=== PATIENT | female | born 1950 | race Caucasian/White ===

== ENCOUNTER → 2024-01-09 13:53 | Outpatient (REF) | payer OTHER, SELFPAY | LOC: HWRCS 13:53 | PROVIDERS: ATTENDING PHYSICIAN Nurse Practitioner; FAMILY PHYSICIAN Family Medicine | DX: R06.09 Other forms of dyspnea (principal) | CPT/HCPCS: 93306 ==

== ENCOUNTER → 2024-02-25 07:47 | Outpatient (REF) | payer OTHER, SELFPAY | LOC: PET 07:47 | PROVIDERS: ATTENDING PHYSICIAN Internal Medicine Cardiovascular Disease | DX: R07.9 Chest pain, unspecified (principal) | CPT/HCPCS: 78431; A9555; J2785 ==

== ENCOUNTER 2024-03-02 16:06 | Inpatient (IN) | payer OTHER, SELFPAY ==
[2024-03-02] VITALS (19 sets, daily range): BP systolic 136–182; BP diastolic 62–85
[2024-03-02 10:25] LABS: % Basophils 0.5 % (0-2); % Eosinophils 1.6 % (0-6); % Immature Granulocytes 0.3 % (0-0.5); % Lymphocytes 23.3 % (20.5-51.1); % Neutrophils 65.3 % (42.2-75.2); Absolute Eosinophils 0.1 10^3/uL (0-0.7); Absolute Lymphocytes 1.5 10^3/uL (1.2-3.4); Absolute Monocytes 0.6 10^3/uL (0.1-0.6); Absolute Neutrophils 4.2 10^3/uL (1.4-6.5); Hemoglobin 11.5 g/dL (12.0-16.0); Mean Corp Hgb Conc. 33.8 g/dL (33.0-37.0); Mean Corpuscular Hgb 30.4 pg (27.0-31.0); Mean Corpuscular Volume 89.9 fL (81.0-99.0); Mean Platelet Volume 10.7 fL (7.4-10.4); Nucleated Red Blood Cells % 0 %; Platelet Count 243 10^3/uL (130-400); Red Blood Cell Count 3.78 10^6/uL (4.20-5.40); Red Cell Dist. Width 13.6 % (11.5-14.5); White Blood Cell Count 6.4 10^3/uL (4.8-10.8)
[2024-03-02 10:35] LABS: ALT (SGPT) 21 U/L (0-35); AST (SGOT) 24 U/L (14-36); Albumin 4.4 g/dl (3.5-5.0); Alkaline Phosphatase 72 U/L (38-126); Blood Urea Nitrogen 23 mg/dl (7-17); Calcium 9.6 mg/dl (8.4-10.2); Carbon Dioxide 26 mmol/L (22-30); Chloride 107 mmol/L (98-107); Glucose 94 mg/dl (70-99); Potassium 4.7 mmol/L (3.5-5.1); Sodium 140 mmol/L (135-145); Total Bilirubin 0.3 mg/dl (0.2-1.3); Total Protein 7.3 g/dl (6.3-8.2); eGFR > 60.00
[2024-03-02] MEDS: ASPIRIN 325 MG PO (10:37)
[2024-03-02] MEDS: NITROSTAT (SUBLINGUAL) 0.400000000000000022 MG SL ×2 (10:37→19:01)
[2024-03-02 10:47] LABS: NT-proBNP 387 pg/ml; Troponin I < 0.012 ng/ml
--- NOTE | 2024-03-02 10:49 | ED.GENMED ---
History of Present Illness
General
Chief Complaint: Chest Pain
Source: patient and spouse
Exam Limitations: none
Time Seen by Provider: 03/02/24 10:20
Nursing documentation reviewed up to this point in time: agreed with
History of Present Illness
History of Present Illness:
73-year-old female patient of Dr. Holliday status post bypass surgery 17 years ago 6 or 8 weeks ago developed some chest pain pressure across her chest, mild, last evening worsened requiring nitroglycerin which did help her symptoms still with some
mild symptoms now has had leg edema and weight gain, shortness of breath, scheduled for cardiac catheter a few weeks with Dr. Hodge no fever or chills,
Past History
Past History
ED Past Medical History: CAD, Cancer (Breast cancer), HTN, Hypercholesterolemia and ND
ED Past Surgical History: Cardiac (CABG), Cholecystectomy, Orthopedic (Ankle) and Other (Left breast lumpectomy)
Social History
Tobacco: Former smoker
Alcohol: None
Personal:
Living: with family
Employment: Retired
Family History
Family History: CAD and Other
Review of Systems
Review of Systems
All Other Systems: Not applicable
Constitutional: Reports weight gain and fatigue; Denies fever or chills
EENT: Reports no symptoms
Respiratory: Reports trouble breathing
Cardiac: Reports chest pain; Denies diaphoresis, palpitations or syncope
ABD/GI: Reports vomiting
: Reports no symptoms
Musculoskeletal: Reports no symptoms
Phy Exam
Physical Exam
Physical Exam:
Physical Exam
General: 73-year-old female mild distress
Neck: No jaundice
Heart: s1/s2 regular rate and rhythm, no murmur. equal radial pulses.
Lungs: Bibasilar crackles
Abdomen: normal bowel sounds. not tender. no CVAT
Neuro: alert and oriented. no focal neurological deficits
Skin: no rash
Psychiatric: cooperative
Extremities: Edema bilaterally
Scores
Heart Score for Chest Pain Patients
STEMI patient?: No
History: Moderately Suspicious
ECG: Nonspecific Repolarization
Age: >/= 65 years
Risk Factors: >/= 3 Risk Factors or History of CAD
Troponin: </= Normal Limit
Heart Score for Chest Pain Patients: 6
Heart Score Risk: 20.3% MACE over next 6 weeks
Course
Orders/Labs/Results
Orders:
Orders
03/02/24 09:38
ECG [Electrocardiogram (*1)] Urgent
Reason for Study: Chest Pain
EKG- Treatment ONCE
03/02/24 10:11
Complete Blood Count/With Diff Urgent
Comprehensive Metabolic Panel Urgent
NT-proBNP Urgent
Troponin I Urgent
03/02/24 10:33
Aspirin 325 mg PO NOW STA
Nitroglycerin Sublingual [Nitrostat (Sublingual)] 0.4 mg SL [id number] PRN
CR Chest Portable - 1 View Urgent
Comment:
Reason For Exam: sob
Reason Study Needs to be Portable: Patient Unstable
Abnormal Lab Results
03/02/24
10:11
RBC 3.78 L 10^6/uL
(4.20-5.40)
Hgb 11.5 L g/dL
(12.0-16.0)
Hct 34.0 L %
(37.0-47.0)
MPV 10.7 H fL
(7.4-10.4)
BUN 23 H mg/dl
(7-17)
03/02/24 10:11
03/02/24 10:11
Vital Signs
Initial and Last Documented VS:
Initial Vital Signs
Temp Pulse Resp BP Pulse Ox
98.9 F 71 18 182/82 96
03/02/24 09:47 03/02/24 09:47 03/02/24 09:47 03/02/24 09:47 03/02/24 09:47
Last Documented Vital Signs
Temp Pulse Resp BP Pulse Ox
98.9 F 64 18 163/85 96
03/02/24 09:47 03/02/24 10:45 03/02/24 10:45 03/02/24 10:04 03/02/24 09:47
MDM/Problems Addressed
Differential Diagnosis Includes:
ACS heart failure unstable angina noncardiac chest pain
MDM/Problems Addressed:
Chest pain shortness of breath
Chronic conditions affecting care: HTN and CAD
Acute Exacerbation and/or Progression of Chronic Illness: HTN and CAD
*Radiology
Radiology exam reviewed: preliminary read by ED provider
*Pulse Oximetry
Patient hypoxic: no
*EKG
Interpreted by ED Provider?: Yes
Interpretation: abnormal
Comparison EKG: no changes
Heart Rate: 80
Rate: normal
Rhythm: sinus
Ischemia: non-specific ST changes
*Computerized Table Cutter Interpretation
Rate: normal
Interpretation: normal
Heart Rate: 78
Rhythm: sinus
*Critical Care Note
Total Time (30-74mins, 75-104mins- exclusive of procedures): Not Applicable
Update Note
Update Note:
Update patient with persistent symptoms, mild here improved with sublingual nitro labs noted chest x-ray noted consult request from cardiology patient and spouse updated
1:45 PM reviewed with cardiology will be admitted
ED Attending Note
-
Portions of this chart may have been created with voice recognition software.� Occasional wrong word or��sound alike� substitutions may have occurred due to the inherent limitations of voice recognition software.
Discharge Plan
Departure
Patient Disposition: Admit
Date of Disposition: 03/02/24
Time of Disposition: 13:46
Admit to: labor operator
Presentation/result/management discussed w/ accepting MD/DO: DCA
Condition: Good
Discharge Problem:
ACS (acute coronary syndrome)
Prescriptions:
No Action
primidone 50 mg Tablet
150 mg PO DAILY
primidone 50 mg Tablet
200 mg PO HS
metoprolol succinate 50 mg Tablet Extended Release 24 Hr
50 mg PO DAILY
isosorbide mononitrate 30 mg Tablet Extended Release 24 Hr
30 mg PO DAILY
clopidogrel 75 mg Tablet
75 mg PO DAILY
aspirin 81 mg Tablet,Delayed Release (Dr/Ec)
81 mg PO HS
acetaminophen [Tylenol Extra Strength] 500 mg Tablet
1,000 mg PO BIDPRN PRN (Reason: mild pain)
levothyroxine 88 mcg Tablet
88 mcg PO HS
cyanocobalamin (vitamin B-12) 500 mcg Tablet
500 mcg PO HS
ascorbic acid (vitamin C) [Vitamin C] 500 mg Tablet
500 mg PO HS
nitroglycerin 0.4 mg Tablet, Sublingual
0.4 mg SUBLINGUAL [id number] PRN (Reason: chest pain)
zinc 50 mg Tablet
50 mg PO HS
lisinopril 5 mg Tablet
5 mg PO DAILY
furosemide 20 mg Tablet
20 mg PO DAILY
fenofibrate 160 mg tablet
160 mg PO DAILY
Repatha SureClick 140 mg/mL Pen Injector
140 mg SC Q2W
cholecalciferol (vitamin D3)
1 tab PO HS
Patient Comments:
03/02/2024, pt. unsure of strength.
rosuvastatin 20 mg Tablet
20 mg PO HS
Referrals:
Annamaria Bourne MD [Family Provider] -
Interventions
Interventions:
*Risk Screen - Suicide Last Done: 03/02/24 09:47
*General Assessment Last Done: 03/02/24 09:47
*Neglect/Abuse Screening Last Done: 03/02/24 09:47
ED- Cardiac Assessment Last Done: 03/02/24 10:26
Discharge Date and Time
Print Language: IRISH
--- NOTE | 2024-03-02 12:46 | CON.CAR ---
Addendum entered and electronically signed by Hemant Hodge MD 03/02/24 16:51:
Attending addendum: Patient seen and examined. PA note reviewed and findings independently confirmed by me. Briefly, this is a 73-year-old female with a remote history of coronary artery bypass grafting at [facility] in 2006 with a
sequential vein [id number] 1 daughter branch-OM 2 and REYES-LAD. She has known extensive coronary artery disease with occlusion of the apical LAD beyond the TONI touchdown and 80% stenosis in the distal RCA with occlusion of the mid PDA and
occlusion of the [place] circumflex. She was seen by Dr. Holliday for evaluation of crescendo anginal symptoms with recent development of chest pain at very low levels of exertion or at rest. She was scheduled for coronary angiography but
developed resting chest pain leading to an emergency department visit this afternoon.
RECOMMENDATION
-Unstable angina with remote bypass surgery: Will proceed with left heart catheterization and evaluation of [place] and graft anatomy with further management decisions to be made after the angiogram is completed
Original Note:
Consultation
Consultation Request
Date/Time Consultation Requested: 03/02/24
Date/Time Consultation Performed: 03/02/24
Requesting Provider: Dr. Crowell in the ER
Performing Provider: Dr. Hodge
Reason for Consultation: Chest pain, CAD s/p CABG
Medical History
-
History of Present Illness:
Patient came to ER today with complaints of chest pain at rest and is being admitted with suspected unstable angina. Patient was just seen by Dr. Holliday in the office 01/31/2024 with complaints of chest pain while on vacation. Patient was on a
cruise and reports that on long walks she had pain in the center of her chest. Pain would be relieved with rest, but reliably recur with longer walks. She says that after that she saw Dr. Holliday in the office and had the PET stress test as noted
that was abnormal, but even prior to PET stress she started to have chest pain with lower levels of activity and for the last 2 weeks has been having resting chest pain. Patient says that while laying in bed last night she had resting chest pain
that lasted for more than 15 minutes so she took a NTG SL x1 for the first time ever and had relief of pain and then developed WHITNEY so she went to bed. Patient awoke in the middle of the night with recurrence of pain that was less intense so she did
not take any doses of NTG SL. Patient awoke with more chest pain this morning and came to [facility]. Patient was given NTG SL x1 in the ER with resolution of chest pain and again developed a WHITNEY. She now feels a different kind of chest sensation that she
describes as heaviness. Initial Troponin was undetectable. Patient previously had CABG in 2006 at [facility] and then had a cath in 2010 as noted above.
PMH:
CAD
s/p CABG with REYES to LAD, SVG to OM-1 (1st branch), SVG seq to OM-1 (2nd branch) and then OM-2 2006
s/p cath with patent REYES to LAD, SVG to OM-1 (1st branch) patent and then occluded after the side of vein to side of artery anastomosis, SVG seq kris OM-1 (2nd branch) and OM-2 was patent at [facility] 10/06/10
cRBBB
HTN
Hyperlipidemia
h/o breast cancer
Hypothyroidism
Former smoker
Past Medical History
Past Medical History: Other (in HPI)
Past Surgical History: Cardiac (ABG at [facility] 2006), Cholecystectomy and Gynecological ( [facility])
Social History
Tobacco: Former Smoker (quit 2010)
Alcohol: None
Drug: None
Personal:
Living: With Family
Family History
Family History: CAD and Diabetes
Allergies / Home Medications
Allergy/AdvReac Type Severity Reaction Status Date / Time
latex [Latex] Allergy Hives Verified 02/05/23 11:51
metronidazole [From Flagyl] Allergy Rash Verified 03/02/24 09:47
Sulfa (Sulfonamide Allergy Hives Verified 02/05/23 11:51
Antibiotics)
propranolol [From Inderal LA] AdvReac Unknown Verified 03/02/24 09:47
�Medication �Instructions �Recorded �Confirmed �Type
acetaminophen 500 mg tablet 1,000 mg PO BIDPRN PRN mild pain 03/02/24 03/02/24 History
(Tylenol Extra Strength)
ascorbic acid (vitamin C) 500 mg 500 mg PO HS 03/02/24 03/02/24 History
tablet (Vitamin C)
aspirin 81 mg tablet,delayed 81 mg PO HS 03/02/24 03/02/24 History
release
cholecalciferol (vitamin D3) 1 tab PO HS 03/02/24 03/02/24 History
clopidogrel 75 mg tablet 75 mg PO DAILY 03/02/24 03/02/24 History
cyanocobalamin (vitamin B-12) 500 500 mcg PO HS 03/02/24 03/02/24 History
mcg tablet
evolocumab 140 mg/mL subcutaneous 140 mg SC Q2W 03/02/24 03/02/24 History
pen injector (Estela Mack)
fenofibrate 160 mg tablet 160 mg PO DAILY 03/02/24 03/02/24 History
furosemide 20 mg tablet 20 mg PO DAILY 03/02/24 03/02/24 History
isosorbide mononitrate 30 mg 30 mg PO DAILY 03/02/24 03/02/24 History
tablet,extended release 24 hr
levothyroxine 88 mcg tablet 88 mcg PO HS 03/02/24 03/02/24 History
lisinopril 5 mg tablet 5 mg PO DAILY 03/02/24 03/02/24 History
metoprolol succinate 50 mg 50 mg PO DAILY 03/02/24 03/02/24 History
tablet,extended release 24 hr
nitroglycerin 0.4 mg sublingual 0.4 mg sublingual [id number] PRN 03/02/24 03/02/24 History
tablet chest pain
primidone 50 mg tablet 150 mg PO DAILY 03/02/24 03/02/24 History
primidone 50 mg tablet 200 mg PO HS 03/02/24 03/02/24 History
rosuvastatin 20 mg tablet 20 mg PO HS 03/02/24 03/02/24 History
zinc 50 mg tablet 50 mg PO HS 03/02/24 03/02/24 History
Review of Systems
-
History Source: Patient and Family ( sitting bedside helping with HPI)
All other systems: Negative unless noted
Physical Exam
Vital Signs
Temp Pulse Resp BP Pulse Ox
98.9 F 64 18 163/85 96
03/02/24 09:47 03/02/24 10:45 03/02/24 10:45 03/02/24 10:04 03/02/24 09:47
GEN: NAD. AAOx3
HEENT: EOMI, MMM
LUNGS: CTA B/L, no wheezes or rales
CV: Reg, S1/S2, no murmur
ABD: soft, BS+, NT, ND
EXT: Trace left worse than right non-pitting B/L LE edema. No clubbing, cyanosis or lesions B/L
NEURO: Gross non-focal
SKIN: Warm, dry and pink. No rash
Lab Results
03/02/24 10:11
03/02/24 10:11
Troponin I < 0.012 ng/ml 03/02/24 10:11
Xyp-M-Judbmzkvijo Pept 387 pg/ml 03/02/24 10:11
Impression / Plan
-
PCP: Dr. Bourne
Cardiology: Dr. Holliday
Impression:
Chest pain at rest, [place]
Abnormal PET stress test 02/25/24
CAD
s/p CABG with REYES to LAD, SVG to OM-1 (1st branch), SVG seq to OM-1 (2nd branch) and then OM-2 2006
s/p cath with patent REYES to LAD, SVG to OM-1 (1st branch) patent and then occluded after the side of vein to side of artery anastomosis, SVG seq kris OM-1 (2nd branch) and OM-2 was patent at [facility] 10/06/10
cRBBB
HTN
Hyperlipidemia
h/o breast cancer
Hypothyroidism
Former smoker
PET stress test 02/25/24: Perfusion imaging reveals a small mild fixed apical defect consistent with prior infarction, small mild reversible anterolateral defect consistent with ischemia, EF 60% at rest and after administration of stress agent,
ventricle is normal in size
Plan:
-Patient came to ER today with complaints of chest pain at rest and is being admitted with suspected unstable angina. Patient was just seen by Dr. Holliday in the office 01/31/2024 with complaints of chest pain while on vacation. Patient was on
a cruise and reports that on long walks she had pain in the center of her chest. Pain would be relieved with rest, but reliably recur with longer walks. She says that after that she saw Dr. Holliday in the office and had the PET stress test as
noted that was abnormal, but even prior to PET stress she started to have chest pain with lower levels of activity and for the last 2 weeks has been having resting chest pain. Patient says that while laying in bed last night she had resting chest
pain that lasted for more than 15 minutes so she took a NTG SL x1 for the first time ever and had relief of pain and then developed WHITNEY so she went to bed. Patient awoke in the middle of the night with recurrence of pain that was less intense so she
did not take any doses of NTG SL. Patient awoke with more chest pain this morning and came to [facility]. Patient was given NTG SL x1 in the ER with resolution of chest pain and again developed a WHITNEY. She now feels a different kind of chest sensation that
she describes as heaviness. Initial Troponin was undetectable. Patient previously had CABG in 2006 at [facility] and then had a cath in 2010 as noted above.
-Patient has progressed from chest pain with activity prompting stress test to resting chest pain and an abnormal stress test.
-Initial Troponin is undetectable.
-ECG reviewed by me without acute ischemic changes.
-Outpatient dose of Imdur ER was increased to 60 mg daily on 02/28/24, but patient continues with episodes of resting chest pain.
-Discussed options of ongoing medical therapy or cardiac cath and patient would like to proceed with cath.
-She took her usual dose of aspirin last night and Plavix this morning.
-New to [facility] after her 01/31/24 office visit for LDL 91 on 12/03/23.
[2024-03-02 14:35] LABS: Troponin I < 0.012 ng/ml
--- NOTE | 2024-03-02 16:08 | ITS.CL.CATH ---
[employer] - Catheterization
Cardiac Catheterization
Procedure Report:
LEFT HEART CATHETERIZATION AND CORONARY INTERVENTION
Date of Procedure: March 02, 2024
Referring: Dr. Lacy Holliday
PROCEDURES:
1. Left heart catheterization with coronary and single-plane left ventriculography
2. Selective saphenous vein graft and TONI angiography
3. Successful stenting of the ostial SVG-OM1-OM 1 daughter-OM 2 with placement of a 4.0 x 38 mm Xience stent that was implanted at nominal pressures.
INDICATION: This is a 73-year-old female with a prior history of coronary artery disease and remote coronary artery bypass grafting in 2006 with REYES-LAD and sequential SVG-OM1-OM 1 daughter branch-OM 2. She presented to our office for evaluation
of crescendo anginal symptoms. A PET CT scan was obtained notable for a small fixed defect with anterolateral reversible ischemia. She was scheduled to undergo coronary angiography in approximately 2 weeks but developed resting chest pain and
presented for evaluation. Troponin has been undetectable, however, given the nature of her symptoms and planned coronary angiography the decision was made to proceed with cardiac catheterization today
ACCESS: Right common femoral artery, 6 Kosovan sheath
HEMODYNAMICS : (mmHg)
AO (s/d) : 167/70
LV (s/d) : 171/16
LVEDP : 20
CORONARY ANGIOGRAPHY
Dominance: Right
LEFT MAIN: Heavily calcified Short left main
LEFT ANTERIOR DESCENDING: The LAD is heavily calcified with a 70% stenosis at its origin. The LAD becomes 100% occluded just beyond the second septal cut in station operator. The distal LAD is noted to fill via a widely patent TONI graft. There is antegrade
and retrograde filling of the LAD proximal and distal to the TONI touchdown. The LAD is noted to be 100% occluded beyond the TONI touchdown just beyond a small terminal diagonal branch. This was reported on the prior catheterization report from
[facility] from 2010. There is retrograde filling to a moderate size LAD supplying 2 diagonal branches
CIRCUMFLEX: The circumflex is diffusely narrowed and becomes occluded in its midportion
RIGHT CORONARY ARTERY: The right coronary artery is heavily calcified with a 50% proximal narrowing and 80% stenosis just before the crux of the vessel. The PDA is 100% occluded in its midportion. These findings were noted on the prior angiogram
from 2010 at [facility].
GRAFT ANGIOGRAPHY:
1. SVG-OM1-OM 1 daughter branch-OM 2: 70% ostial stenosis with development of chest pain and pressure dampening upon engagement. There is a 60-70% proximal stenosis and degenerative changes noted in the vein graft throughout its course. The vein
graft is anastomosed to 2 daughter branches from OM 1. The more proximal limb of the vein graft fills OM1 retrograde but not antegrade. The sequential portion of the vein graft continues to the second daughter branch of OM1 and then terminates
distally in OM 2. OM 2 is a medium caliber vessel with anterograde and retrograde filling
2. REYES-LAD: The REYES graft to the mid LAD is widely patent. The LAD fills proximal to the TONI touchdown supplying 2 small to medium caliber diagonal branches. The LAD beyond the TONI touchdown becomes occluded distally beyond a terminal diagonal
branch. This was noted on the catheterization from 2010
LEFT VENTRICULOGRAPHY: Left ventriculography was performed in DUQUE projection. Digital single-plane left ventricular ejection fraction is estimated at 55%. The ventricle was under opacified and accurate assessment is somewhat limited
ANGIOPLASTY PROCEDURE DETAIL: Upon review of the diagnostic catheterization films the decision was made to proceed with stenting of the sequential SVG. The patient developed ECG changes, pressure dampening, and chest discomfort immediately upon
engagement of the saphenous vein graft. Intravenous heparin was administered and the ACT was monitored throughout the procedure. The origin of the saphenous vein graft was cannulated with a 6 Kosovan AR-1 guide catheter and a BMW guidewire crossed
the ostial and proximal stenotic segments and was advanced distally. I did not use distal protection due to the ostial nature of the atherosclerotic disease. There was clear concern for distal emboli given the degenerative appearance of the
saphenous vein graft anatomy. The patient developed chest pain with ECG changes upon engagement of the guide catheter. Fortunately, a 4.0 x 38 mm Xience stent was able to cross the ostial and proximal stenoses. The guide catheter was carefully
disengaged from the ostium of the vein graft and the stent was deployed at nominal pressures. I chose not to post dilate the stent due to inability to utilize distal protection and high risk for development of no reflow.
RADIATION SUMMARY: Fluoro Time (min): 13.0, Dose (mGy): 1703, DAP (Gy.cm2) : 148
Closure Device: 6 Kosovan Angio-Seal RFA
CONCLUSION
1. Successful stenting of ostial/proximal SVG-OM1-OM 1 daughter-OM 2 with placement of a 4.0 x 38 mm Xience stent that was implanted at nominal pressures.
2. [place] vessel coronary artery disease as described above. The REYES graft is patent to the mid LAD which fills retrograde. The LAD apically beyond the TONI touchdown is 100% occluded. Significant lower [place] circumflex and RCA atherosclerosis is
also noted as above
3. Preserved LV
RECOMMENDATIONS
1. Continue uninterrupted dual antiplatelet therapy for minimum of 1 year
2. High intensity statin for goal LDL cholesterol of 55 mg/dL or less
Copy to: Dr. Lacy Holliday
--- NOTE | 2024-03-02 18:56 | PTCARENOTE ---
patients came out to desk and stated that patient was having chest pressure, entered room and chest pressure 5 out of 10, nonradiating. EKG obtained and Dr. Hodge was called, took picture of EKG and sent to Dr. Hodge. BP 155/67, HR 65.
patient head was elevated 30 degrees while eating. patient is now sitting up. ordered to give 1 SL NTG. as per Dr. Hodge, patient insisted on getting up to go to BR. no dizziness, right groin intact. voided and had BM. pressure the same in chest,
Dr. Hodge aware.
--- NOTE | 2024-03-02 19:12 | PTCARENOTE ---
chest pressure continues, Dr. Hodge aware will start IV nitroglycerin as ordered.
[2024-03-02] MEDS: NITROGLYCERIN PREMIX 250 IV (19:35)
--- NOTE | 2024-03-02 19:35 | PTCARENOTE ---
Received patient at 1900. Had 5 out 10 chest pain, Dr. Hodge notified, Nitro gtt at 5 mcg/min started. Pain subsiding now rating it a 2 out of 10, looks more relaxed. Loose stools earlier have subsided
--- NOTE | 2024-03-02 20:18 | PTCARENOTE ---
Patient sitting on side of bed, denies chest pressure, 'feels better sitting up'. Dull headache would like to wait on Tylenol for now. Call garcia in reach
[2024-03-02 20:34] LABS: Troponin I 0.133 ng/ml
--- NOTE | 2024-03-02 21:20 | PTCARENOTE ---
Another liquid bowel movement. Denies chest discomfort. Sitting on site of bed, feeling better. Jody spring given, VSS, call garcia in reach
[2024-03-02] MEDS: ASPIR LOW (ENTERIC COATED) 81 MG PO (22:20)
[2024-03-02] MEDS: SYNTHROID 88 MCG PO (22:21)
[2024-03-02] MEDS: CRESTOR 20 MG PO (22:21)
[2024-03-02] MEDS: MYSOLINE 200 MG PO (22:21)
[2024-03-03 02:48] VITALS: BP 115/69
[2024-03-03 03:30] LABS: Hematocrit 32.8 % (37.0-47.0); Hemoglobin 10.7 g/dL (12.0-16.0); Mean Corp Hgb Conc. 32.6 g/dL (33.0-37.0); Mean Corpuscular Hgb 29.9 pg (27.0-31.0); Mean Corpuscular Volume 91.6 fL (81.0-99.0); Mean Platelet Volume 10.9 fL (7.4-10.4); Platelet Count 220 10^3/uL (130-400); Red Blood Cell Count 3.58 10^6/uL (4.20-5.40); Red Cell Dist. Width 13.4 % (11.5-14.5); White Blood Cell Count 7.1 10^3/uL (4.8-10.8)
[2024-03-03 03:57] LABS: Blood Urea Nitrogen 23 mg/dl (7-17); Calcium 9.2 mg/dl (8.4-10.2); Carbon Dioxide 26 mmol/L (22-30); Chloride 106 mmol/L (98-107); Glucose 94 mg/dl (70-99); HDL Cholesterol 41 mg/dl; LDL Cholesterol, Calculated 53 mg/dl; Potassium 4.3 mmol/L (3.5-5.1); Sodium 138 mmol/L (135-145); Total Cholesterol 169 mg/dl (50-199); Triglyceride 375 mg/dl (10-149); Very Low Density Lipoprotein 75 mg/dl (0-30); eGFR > 60.00
[2024-03-03 04:43] LABS: Hepatitis C Antibody Negative (Negative)
--- NOTE | 2024-03-03 06:21 | PTCARENOTE ---
No chest pain overnight. Did have trouble sleeping. Labs and EKG completed. VSS, Nitro infusing at 5mcg/min, loose stools have resolved
[2024-03-03 08:01] VITALS: BP 144/56
[2024-03-03] MEDS: MYSOLINE 150 MG PO (08:24)
[2024-03-03] MEDS: LASIX 20 MG PO (08:24)
[2024-03-03] MEDS: PLAVIX 75 MG PO (08:24)
[2024-03-03] MEDS: ZESTRIL 5 MG PO (08:25)
[2024-03-03] MEDS: TOPROL XL 50 MG PO (08:25)
[2024-03-03] MEDS: TRICOR 145 MG PO (08:25)
--- NOTE | 2024-03-03 08:27 | W.PN.CARDCBS ---
Addendum entered and electronically signed by Maxine Nicholson MD 03/03/24 10:59:
I saw and examined the patient.
The Link Trainer Teacher's note was reviewed and I agree with the note.
Comment: Overall patient is doing better today. No further chest discomfort since last night. She has been OOB into chair and ambulating to bathroom without issues. No issues at right groin site.
Vitals and labs reviewed. Tele with oocnl PVCs and NSVT. On exam patient is morbidly obese, NAD, A+Ox 3, RR, normal S1 and S2, Lung CTAB, abd soft, NT, ND, +BS, warm ext, right groin with dressing in place which is c/d/i without bruit or hematoma.
Trop peaked at 1.07, downtrending. Echo pending.
Reccs:
1. Follow up on echocardiogram.
2. Cont with GDMT for CAD and DAPT for recent PCI.
3. OOB and ambulate and reassess symptoms with plan for DC later today versus tomorrow.
Maxine Nicholson MD, [facility], [facility]
Original Note:
Today's Communication / Plan
-
trend troponin to peak
echo today
oob ambulate- if pain free and doing well, possible d/c later today
Impression / Plan
-
PCP: Annamaria Bourne MD
CDY: Lacy Holliday MD
73 y/o, PMH sig for CAD and remote CABG x3 (2007- REYES-LAD, VG-OM1, and sequential SVG-OM 1 daughter branch-OM 2). Presented to [facility] office for evaluation of crescendo anginal symptoms. A PET CT scan was obtained notable for a small fixed defect
with anterolateral reversible ischemia. She was scheduled to undergo coronary angiography in approximately 2 weeks but developed resting chest pain and presented to ER for evaluation. Troponin has been undetectable, however, given the nature of
her symptoms and planned coronary angiography the decision was made to proceed with cardiac catheterization.
PET stress test 02/25/24: small mild fixed apical defect c/w prior infarct, small mild rev anterolat defect c/w ischemia, EF 60%
[facility] 03/02- s/p angioplasty/stenting with JOHNNA to sequential ost/prox VG-OM1
[place] CAD noted with patent REYES graft, apical LAD beyond touchdown is 100% occluded
significant [place] LCx/RCA disease noted
LVgram- EF 55%
IMPRESSION:
[place] with abnormal PET stress test 02/25/24
CAD
s/p CABG with REYES to LAD, SVG to OM-1 (1st branch), SVG seq to OM-1 (2nd branch) and then OM-2 2006
s/p cath with patent REYES to LAD, SVG to OM-1 (1st branch) patent and then occluded after the side of vein to side of artery anastomosis, SVG seq to OM-1 (2nd branch) and OM-2 was patent at [facility] 10/06/10
NSTEMI, S/P VG-OM1 PCI
cRBBB
HTN
Hyperlipidemia
h/o breast cancer
Hypothyroidism
Former smoker
PET stress test 02/25/24: Perfusion imaging reveals a small mild fixed apical defect consistent with prior infarction, small mild reversible anterolateral defect consistent with ischemia, EF 60% at rest and after administration of stress agent,
ventricle is normal in size
PLAN:
tele- NSR 60s w/RBBB
troponin negative prior to procedure however followup trop now rising 1.07
some CP 5/10 overnight with IV nitro gtt started- feeling better now and will stop nitro and monitor
continue DAPT w/asa, plavix- was given 600mg on cath table
continue toprol, lisinopril, isosorbide
lipid profile noted- continue crestor, fenofibrate, new to repatha
echo today
cardiac rehab consult
followup up at [facility]
if she is ambulating and pain free, and trops trending down, consider d/c later
Progress Note - Steamfitter Apprentice
Subjective
Date of Service: March 03, 2024
Denies palps/dyspnea
mod 5/10 cp post procedure with nitro gtt- now cp free
oob ambulating
femoral cath site without pain
Objective
Labs:
03/03/24 02:58
03/03/24 02:58
Labs
Hgb 10.7 g/dL (12.0-16.0) L 03/03/24 02:58
Hct 32.8 % (37.0-47.0) L 03/03/24 02:58
Plt Count 220 10^3/uL (130-400) 03/03/24 02:58
Sodium 138 mmol/L (135-145) 03/03/24 02:58
Potassium 4.3 mmol/L (3.5-5.1) 03/03/24 02:58
BUN 23 mg/dl (7-17) H 03/03/24 02:58
Creatinine 0.8 mg/dL (0.6-1.0) 03/03/24 02:58
Glucose 94 mg/dl (70-99) 03/03/24 02:58
Troponins
03/02/24 03/02/24 03/02/24
10:11 14:03 16:30
Troponin I < 0.012 < 0.012 Cancelled
03/02/24 03/02/24 03/03/24
19:56 22:30 02:58
Troponin I 0.133 H* D Cancelled 1.070 H* D
Vital Signs and I&O:
Vital Signs
Temp Pulse Resp BP Pulse Ox
98.0 F 72 18 144/56 96
03/03/24 07:59 03/03/24 08:15 03/03/24 07:59 03/03/24 08:01 03/03/24 07:59
Vital Signs
Temp Pulse Resp BP Pulse Ox
98.0 F 72 18 144/56 96
03/03/24 07:59 03/03/24 08:15 03/03/24 07:59 03/03/24 08:01 03/03/24 07:59
Intake & Output
03/01/24 03/02/24 03/03/24 03/04/24
06:59 06:59 06:59 06:59
Intake Total 1300 / 1300
Balance 1300 / 1300
Physical Exam
Physical Exam
AAOX3, MAEE 5/5
RRR S1 S2 no murmurs
CTA bilat, non labored
soft abd, + bs
right femoral cath site without ht/bleeding, non tender
bilat extremities w/palpable distal pulses, no edema
[2024-03-03 09:30] LABS: Troponin I 0.937 ng/ml
--- NOTE | 2024-03-03 10:26 | CM ---
Reviewed chart. Met with and Mrs. Baldwin to review discharge plans. She states prior to admission she resides with her spouse and son in a two story home with four steps toe nter. She states she has a full flight of steps to get to
bedroom/full bathroom. She states she has a powder room on the first floor. She states prior to admission she was independent with ambulation and adls. She states she does not have any DME in the home. She states she has a prescription plan and
uses [facility]. Medical work-up in progress. The discharge plan is to return home with her spouse and son when medically stable.
[2024-03-03 11:17] VITALS: BP 153/64
[2024-03-03 11:19] VITALS: BP 155/71
--- NOTE | 2024-03-03 11:38 | PTCARENOTE ---
Assumed care of patient at 0700. Pt is awake, alert, and oriented. Received patient on Nitro at 5mcg/min. Nitro gtt turned off. No complaints of chest pain. Pt remains SR with BBB, HR 60's. BP 155/71 MAP 96. Pulse oximetry 96% on room air. Pt
tolerating PO diet. Voiding without issue. Right groin puncture site CDI. Pedal pulses palpable. Pt currently ambulating in hallway without issue.
--- NOTE | 2024-03-03 13:31 | W.PN.UPDATE ---
Update Note
Progress Note Update
Troponin down to 0.93. Echo results noted, nml LVSF, no WMA, EF 55-60%, mild CLVH, no sig valvular abn.
She is ambulating in halls and has no chest pain but c/o dyspnea and having to stop and catch her breath.
On exam, lung sounds are diminished throughout but clear, non labored. Cardiac nml S1 S2 no murmurs.
LVEDP at cath was 20.
Will give lasix 20mg IV x1 now and increase home dose to 20mg PO BID. Check BMP/Mag in 1 week.
If she tolerates, will plan for d/c this afternoon.
Discussed with Dr. Nicholson.
[2024-03-03] MEDS: LASIX 20 MG IV (13:33)
[2024-03-03 15:04] VITALS: BP 137/77
[2024-03-03] MEDS: KCL 20 MEQ PO (15:16)
--- NOTE | 2024-03-03 15:20 | PTCARENOTE ---
Pt with leg cramp in upper left leg. Pt seated, ice pack placed on cramping leg. Cramp resolved. ALEJANDRA Crooks notified. 20meq PO Potassium ordered and administered. Cramp fully resolved. Pt states she feels ready and safe for discharge. ALEJANDRA
agreed okay for discharge.
--- NOTE | 2024-03-03 15:23 | W.DS.TRANS ---
DC Summary - Press Operator Helper
-
Discharge Instructions:
Discharge Diagnosis/Procedures NSTEMI, s/p angioplasty and stent to Vein Graft-
Obtuse Marginal artery
Diet Low Cholesterol
Driving Restrictions No driving for 24 hours
Blood Work BMP, Magnesium in 1 week- results to
[place]
Other Services Cardiac Rehab
Instructions:
Stand-Alone Forms: DC Instructions- Cath/EP Lab
Changes to Home Medications: Yes
Discharge Medications:
DC Medications w/original date entered in [employer]
acetaminophen 500 mg tablet (Tylenol Extra Strength) 1,000 mg PO BIDPRN PRN mild pain 03/02/24
ascorbic acid (vitamin C) 500 mg tablet (Vitamin C) 500 mg PO HS Supplement 03/02/24
aspirin 81 mg tablet,delayed release 81 mg PO HS Blood Clot Prevention/Tx 03/02/24
cholecalciferol (vitamin D3) 1 tab PO HS Supplement 03/02/24
clopidogrel 75 mg tablet 75 mg PO DAILY Blood Clot Prevention/Tx 03/02/24
cyanocobalamin (vitamin B-12) 500 mcg tablet 500 mcg PO HS Supplement 03/02/24
evolocumab 140 mg/mL subcutaneous pen injector (Repatha SureClick) 140 mg SC Q2W High Cholesterol 03/02/24
fenofibrate 160 mg tablet 160 mg PO DAILY High Cholesterol 03/02/24
isosorbide mononitrate 30 mg tablet,extended release 24 hr 30 mg PO DAILY Heart Disease/Condition 03/02/24
levothyroxine 88 mcg tablet 88 mcg PO HS Thyroid 03/02/24
lisinopril 5 mg tablet 5 mg PO DAILY Blood Pressure 03/02/24
metoprolol succinate 50 mg tablet,extended release 24 hr 50 mg PO DAILY Blood Pressure 03/02/24
nitroglycerin 0.4 mg sublingual tablet 0.4 mg sublingual [id number] PRN chest pain 03/02/24
primidone 50 mg tablet 150 mg PO DAILY Neurological Condition 03/02/24
primidone 50 mg tablet 200 mg PO HS Neurological Condition 03/02/24
rosuvastatin 20 mg tablet 20 mg PO HS High Cholesterol 03/02/24
zinc 50 mg tablet 50 mg PO HS Supplement 03/02/24
furosemide 20 mg tablet 20 mg PO BID #180 tabs 03/03/24
Home Medication Changes
DOSE INCREASE: furosemide
Pending Results: No
--- NOTE | 2024-03-03 15:45 | PTCARENOTE ---
Discharge instructions and medications reviewed with patient and patient's . Questions addressed, no further questions at this time. Tele monitor removed. Peripheral IV removed. Pt stable at discharge. Pt escorted in wheelchair out with
family.
== END 2024-03-03 15:58 | disposition home or self-care (01) | DRG 322 ==
LOC: IVU 16:06
PROVIDERS: Nurse Practitioner; Physician Assistant Medical; ADMITTING PHYSICIAN Internal Medicine Interventional Cardiology; EMERGENCY PHYSICIAN Emergency Medicine; FAMILY PHYSICIAN Family Medicine
PROC: B2121ZZ Fluoroscopy of Single Coronary Artery Bypass Graft using Low Osmolar Contrast (ICD-10-PCS; 2024-03-02)
PROC: B2181ZZ Fluoroscopy of Left Internal Mammary Bypass Graft using Low Osmolar Contrast (ICD-10-PCS; 2024-03-02)
PROC: B2151ZZ Fluoroscopy of Left Heart using Low Osmolar Contrast (ICD-10-PCS; 2024-03-02)
PROC: 027034Z Dilation of Coronary Artery, One Artery with Drug-eluting Intraluminal Device, Percutaneous Approach (ICD-10-PCS; 2024-03-02)
PROC: B2111ZZ Fluoroscopy of Multiple Coronary Arteries using Low Osmolar Contrast (ICD-10-PCS; 2024-03-02)
PROC: 4A023N7 Measurement of Cardiac Sampling and Pressure, Left Heart, Percutaneous Approach (ICD-10-PCS; 2024-03-02)
DX: I21.4 Non-ST elevation (NSTEMI) myocardial infarction (principal); Z87.891 Personal history of nicotine dependence; I10 Essential (primary) hypertension; I45.10 Unspecified right bundle-branch block; G20.A1 Parkinson's disease without dyskinesia, without mention of fluctuations; Z85.3 Personal history of malignant neoplasm of breast
CPT/HCPCS: 71045; 80048; 80053; 80061; 83880; 84484; 85025; 85027; 85347; 86803; 93005; 93306; 93459; 99285; C1760; C1769; C1874; C1894; C9600; J0153; Q9967

== ENCOUNTER 2024-03-11 02:00 | Inpatient (IN) | payer OTHER, SELFPAY ==
[2024-03-10 21:52] VITALS: BP 170/83
[2024-03-10 22:44] LABS: % Basophils 0.3 % (0-2); % Eosinophils 2.2 % (0-6); % Immature Granulocytes 0.4 % (0-0.5); % Lymphocytes 25.9 % (20.5-51.1); % Monocytes 6.8 % (1.7-9.3); % Neutrophils 64.4 % (42.2-75.2); Absolute Eosinophils 0.2 10^3/uL (0-0.7); Absolute Lymphocytes 2.4 10^3/uL (1.2-3.4); Absolute Monocytes 0.6 10^3/uL (0.1-0.6); Hematocrit 31.5 % (37.0-47.0); Hemoglobin 10.9 g/dL (12.0-16.0); Mean Corp Hgb Conc. 34.6 g/dL (33.0-37.0); Mean Corpuscular Hgb 30.5 pg (27.0-31.0); Mean Corpuscular Volume 88.2 fL (81.0-99.0); Mean Platelet Volume 10.6 fL (7.4-10.4); Nucleated Red Blood Cells % 0 %; Platelet Count 238 10^3/uL (130-400); Red Blood Cell Count 3.57 10^6/uL (4.20-5.40); Red Cell Dist. Width 13.6 % (11.5-14.5); White Blood Cell Count 9.3 10^3/uL (4.8-10.8)
[2024-03-10 22:58] LABS: ALT (SGPT) 26 U/L (0-35); AST (SGOT) 31 U/L (14-36); Albumin 4.4 g/dl (3.5-5.0); Alkaline Phosphatase 65 U/L (38-126); Blood Urea Nitrogen 32 mg/dl (7-17); Calcium 9.4 mg/dl (8.4-10.2); Carbon Dioxide 26 mmol/L (22-30); Chloride 104 mmol/L (98-107); Glucose 103 mg/dl (70-99); Potassium 4.3 mmol/L (3.5-5.1); Sodium 138 mmol/L (135-145); Total Bilirubin 0.4 mg/dl (0.2-1.3); eGFR 59.12
[2024-03-10 23:09] LABS: Troponin I < 0.012 ng/ml
[2024-03-10 23:22] VITALS: BMI 42.6
--- NOTE | 2024-03-10 23:28 | ED.GENMED ---
History of Present Illness
General
Chief Complaint: Chest Pain
Source: patient, records and spouse
Exam Limitations: none
Time Seen by Provider: 03/10/24 22:53
Nursing documentation reviewed up to this point in time: agreed with
History of Present Illness
History of Present Illness:
73-year-old female with a past medical history of hypertension, CAD status post CABG who presents to the emergency room for evaluation of chest pain. Patient was notably admitted to this hospital 03/02 until 03/03�was admitted for unstable angina and
had cardiac catheterization 03/02/2024 (with Dr. Hodge; normal deputy city clerk is Dr. Holliday) during which she had vein graft and stenting. Patient reports that she was feeling well after discharge until Saturday (3 days ago) when she began to
notice burning chest pain similar to symptoms she was having prior to cath. She says that symptoms had been coming and going since then but tonight have been constant for the past few hours which prompted her to come to the emergency room. She
says that she does notice that symptoms are triggered with exertion although she has had resting symptoms as well over the past few days. She says that although the quality of the symptom is similar to previous symptoms she was having, the
intensity is not as severe she says. She denies any associated shortness of breath but has noticed increased fatigue. She has had some mild nausea but no vomiting. Denies any abdominal pain. She denies any cough, fevers, chills. Denies any
swelling or pain in the legs. She denies any other complaints. She reports compliance with all her medications including her antiplatelet therapy.
Past History
Past History
ED Past Medical History: CAD, Cancer (Breast cancer), HTN, Hypercholesterolemia and [place]
ED Past Surgical History: Cardiac (CABG), Cholecystectomy, Orthopedic (Ankle) and Other (Left breast lumpectomy)
Social History
Tobacco: Former smoker
Alcohol: None
Personal:
Living: with family
Employment: Retired
Family History
Family History: CAD and Other
Review of Systems
Review of Systems
All Other Systems: ROS reviewed and negative except as documented in HPI and ROS
Constitutional: Reports fatigue; Denies fever or chills
Respiratory: Denies cough or trouble breathing
Cardiac: Reports chest pain; Denies palpitations
ABD/GI: Reports nausea; Denies abdominal pain or vomiting
: Denies flank pain
Musculoskeletal: Denies edema, neck pain or back pain
Neurological: Denies dizzy or headache
Phy Exam
Physical Exam
Physical Exam:
General: Awake, alert, oriented x3; anxious but no acute distress
Head: Normocephalic, atraumatic
Eyes: Conjunctiva normal, sclera anicteric
Throat: Airway intact, handling secretions
Neck: Trachea midline, no JVD
Lungs: Clear to auscultation bilaterally, no wheezing, rales, rhonchi
Heart: Regular rate and rhythm, no murmurs, gallops, or rubs appreciated
Abd: Soft, non distended, nontender
Neuro: Cranial nerves grossly intact, speech fluid
Extremities: No edema in extremities, equal pulses in all extremities; she has small amount of bruising on the right inguinal region from recent cath but no swelling or mass
Scores
Heart Failure Risk
Heart Failure Risk Score: Not Applicable
Heart Score for Chest Pain Patients
STEMI patient?: Not applicable
Withdrawal Assessment of Alcohol
Withdrawal Assessment Completed?: Not applicable
Course
Orders/Labs/Results
Orders:
Orders
03/10/24 21:55
Electrocardiogram (*1) Urgent
Reason for Study: Chest Pain
EKG- Treatment ONCE
03/10/24 22:38
Complete Blood Count/With Diff Urgent
Comprehensive Metabolic Panel Urgent
Troponin I Urgent
03/10/24 23:16
CT Chest Pe Study Urgent
Comment:
Reason For Exam: chest pain s/p recent hospitalization
03/10/24 23:32
Nitroglycerin Sublingual [Nitrostat (Sublingual)] 0.4 mg SL NOW STA
03/10/24 23:44
EKG [Electrocardiogram (*1)] Urgent
Reason for Study: Chest Pain
EKG- Treatment ONCE
03/10/24 23:53
Nitroglycerin Sublingual [Nitrostat (Sublingual)] 0.4 mg SL [id number] PRN
03/10/24 23:56
Nitroglycerin 100 mg/250 ml [Nitroglycerin Premix] 100 mg in 250 ml IV NOW
Initial dose in mcg/min, then titrate:: 100
Titrate to keep:: Other
Titrate to keep other:: SBP less than 140 mmHg
Titrate by mcg/min:: 20 mcg/min
Frequency of titrations (minutes):: every 1 minute (after initial bolus)
Additional Titration Instructions:: Bolus 400 mcg/min x 2 min. Decrease to 100 mcg/min & titrate
Maximum dose in mcg/min:: 200
Begin to taper infusion when:: Remained at goal for 2hrs
Taper by mcg/min:: 5 mcg/min
Frequency of taper (minutes) if patient maintains goal:: 30
Taper to off?: Yes
If infusion off & no longer maintaining goal:: Contact Provider
03/11/24 01:30
Troponin I Urgent
Abnormal Lab Results
03/10/24
22:38
RBC 3.57 L 10^6/uL
(4.20-5.40)
Hgb 10.9 L g/dL
(12.0-16.0)
Hct 31.5 L %
(37.0-47.0)
MPV 10.6 H fL
(7.4-10.4)
BUN 32 H mg/dl
(7-17)
Glucose 103 H mg/dl
(70-99)
03/10/24 22:38
03/10/24 22:38
Vital Signs
Initial and Last Documented VS:
Initial Vital Signs
Temp Pulse Resp BP Pulse Ox
36.7 C 81 18 170/83 94
03/10/24 21:52 03/10/24 21:52 03/10/24 21:52 03/10/24 21:52 03/10/24 21:52
Last Documented Vital Signs
Temp Pulse Resp BP Pulse Ox
36.7 C 95 25 207/114 97
03/10/24 21:52 03/10/24 23:45 03/10/24 23:45 03/10/24 23:41 03/10/24 23:45
MDM/Problems Addressed
Differential Diagnosis Includes:
ACS, PE, dissection, pericarditis ([place] syndrome), pneumothorax, pneumonia, GERD/esophagitis
MDM/Problems Addressed:
73-year-old female presents to the emergency room for evaluation of chest pain; she is status post cardiac cath last week as described above. She has noticed worsening of symptoms with exertion but is also had resting symptoms. Consistent symptoms
for the past few hours she says. Markedly hypertensive; otherwise normal vitals. Physical exam as above. EKG unchanged from prior. Plan to check labs including a CBC and a CMP. Will check serial troponins. Will check CTA of the chest. Will
trial some nitroglycerin both for blood pressure management and chest pain. Will reassess after the above. Will discuss with cardiology.
After CT scan patient returned to the room was complaining of severe 9/10 chest pain. Blood pressure spiked to 200/114. She was given sublingual nitroglycerin and pain improved to 5/10. Blood pressure improved to 180/90. Will give additional
nitroglycerin and if pain persistent consider infusion of nitroglycerin. Awaiting CT read.
CT chest negative for PE or dissection. No pneumonia or pneumothorax or other acute pathology. Pain improved with nitroglycerin, remains hypertensive. Will start on nitroglycerin infusion. At this point working diagnosis is hypertensive crisis.
Will admit to the hospitalist for continued management. Case discussed with cardiology. Case discussed with hospitalist.
Chronic conditions affecting care:
CAD, hypertension
*Radiology
Radiology exam reviewed: radiology read reviewed
*Pulse Oximetry
Patient hypoxic: no
*EKG
Interpreted by ED Provider?: Yes
Comparison EKG: no changes
Heart Rate: 77
Rate: normal
Rhythm: sinus
[place]: normal axis
Interval: normal interval
QRS Pattern: right bundle branch block
Ischemia: no ischemia
*Critical Care Note
Total Time (30-74mins, 75-104mins- exclusive of procedures): Not Applicable
Data Reviewed
Review of Other/Old Records Reveals: Labs, Records, Operative Reports and Discharge Summary
Source: patient and records
Patient Management
Discussion with other providers: Hospitalist (Case discussed with hospitalist) and Yard Motor Operator (Discussed with cardiology)
Escalation/DeEscalation of care consider admission/obs:
Admission indicated
ED Attending Note
-
Portions of this chart may have been created with voice recognition software.� Occasional wrong word or��sound alike� substitutions may have occurred due to the inherent limitations of voice recognition software.
Discharge Plan
Departure
Admit to doctor: Darcie
Presentation/result/management discussed w/ accepting MD/DO: Hospitalist
Discharge Problem:
Hypertensive crisis, Chest pain
Prescriptions:
No Action
primidone 50 mg Tablet
150 mg PO DAILY
primidone 50 mg Tablet
200 mg PO HS
metoprolol succinate 50 mg Tablet Extended Release 24 Hr
50 mg PO DAILY
isosorbide mononitrate 30 mg Tablet Extended Release 24 Hr
30 mg PO DAILY
clopidogrel 75 mg Tablet
75 mg PO DAILY
aspirin 81 mg Tablet,Delayed Release (Dr/Ec)
81 mg PO HS
acetaminophen [Tylenol Extra Strength] 500 mg Tablet
1,000 mg PO BIDPRN PRN (Reason: mild pain)
levothyroxine 88 mcg Tablet
88 mcg PO HS
cyanocobalamin (vitamin B-12) 500 mcg Tablet
500 mcg PO HS
ascorbic acid (vitamin C) [Vitamin C] 500 mg Tablet
500 mg PO HS
nitroglycerin 0.4 mg Tablet, Sublingual
0.4 mg SUBLINGUAL [id number] PRN (Reason: chest pain)
zinc 50 mg Tablet
50 mg PO HS
lisinopril 5 mg Tablet
5 mg PO DAILY
fenofibrate 160 mg tablet
160 mg PO DAILY
Repatha SureClick 140 mg/mL Pen Injector
140 mg SC Q2W
cholecalciferol (vitamin D3)
1 tab PO HS
rosuvastatin 20 mg Tablet
20 mg PO HS
furosemide 20 mg Tablet
20 mg PO BID Qty: 180 3RF
Referrals:
Annamaria Bourne MD [Family Provider] -
Interventions
Interventions:
*General Assessment Last Done: 03/10/24 21:52
*Neglect/Abuse Screening Last Done: 03/10/24 21:52
ED- Fall Risk Assessment Last Done: 03/10/24 23:00
ED- Cardiac Assessment Last Done: 03/10/24 23:00
Discharge Date and Time
Print Language: L[place]
[2024-03-10] MEDS: NITROSTAT (SUBLINGUAL) 0.4 MG SL ×2 (23:40→23:55)
[2024-03-10 23:41] VITALS: BP 207/114
[2024-03-10 23:49] VITALS: BP 185/96
[2024-03-10 23:55] VITALS: BP 188/72
[2024-03-11] VITALS (49 sets, daily range): BP systolic 102–172; BP diastolic 32–95; BMI 42.4
[2024-03-11] MEDS: NITROGLYCERIN PREMIX 250 IV (00:03)
[2024-03-11] MEDS: LOW STRENGTH ASPIRIN 243 MG PO (00:13)
--- NOTE | 2024-03-11 01:23 | HPS.HSE ---
Addendum entered and electronically signed by Jose Manuel Sprague MD 03/11/24 02:01:
Level of care change: to IVU in place of IMU due to CP on NTG gtt.
Original Note:
Family Physician
-
Family Physician: Annamaria Bourne
Chief Complaint
-
CP
History of Present Illness
73F HX NSTEMI s/p vein graft to the obtuse marginal angioplasty and stenting, 03/02/2024 seen at ER for evalaution of CP:
Current CP
- onset 3 days ago become more severe and came to ER
- noted BP 207/114 on arrival
- ER stated on NTG gtt and both CP and HTN improved
- troponin is undetectable.
- CTA chest negative.
Medical History
Past Medical History
Past Medical History: Reports Other
Additional Past Medical History:
CAD, Cancer (Breast cancer), HTN, Hypercholesterolemia and [place]
Past Surgical History: Reports Other
Additional Past Surgical History:
Cardiac (CABG), Cholecystectomy, Orthopedic (Ankle) and Other (Left breast lumpectomy)
Social History
Tobacco: Former Smoker
Alcohol: None
Personal:
Living: With Family
Family History
Family History: Not pertinent
Allergies / Home Medications
Allergies reflects when Allergies were last updated in [employer]
Home Medications with original date entered in [employer]
Allergy/Medication List:
Allergies
Allergy/AdvReac Type Severity Reaction Status Date / Time
latex [Latex] Allergy Hives Verified 03/10/24 23:11
metronidazole [From Flagyl] Allergy Rash Verified 03/10/24 23:11
propranolol [From Inderal LA] Allergy Unknown Verified 03/10/24 23:11
Sulfa (Sulfonamide Allergy Hives Verified 03/10/24 23:11
Antibiotics)
Home Medications
acetaminophen 500 mg tablet (Tylenol Extra Strength) 1,000 mg PO BIDPRN PRN mild pain 03/02/24
ascorbic acid (vitamin C) 500 mg tablet (Vitamin C) 500 mg PO HS Supplement 03/02/24
aspirin 81 mg tablet,delayed release 81 mg PO HS Blood Clot Prevention/Tx 03/02/24
cholecalciferol (vitamin D3) 1 tab PO HS Supplement 03/02/24
clopidogrel 75 mg tablet 75 mg PO DAILY Blood Clot Prevention/Tx 03/02/24
cyanocobalamin (vitamin B-12) 500 mcg tablet 500 mcg PO HS Supplement 03/02/24
evolocumab 140 mg/mL subcutaneous pen injector (Repatha SureClick) 140 mg SC Q2W High Cholesterol 03/02/24
fenofibrate 160 mg tablet 160 mg PO DAILY High Cholesterol 03/02/24
isosorbide mononitrate 30 mg tablet,extended release 24 hr 60 mg PO DAILY Heart Disease/Condition 03/02/24
levothyroxine 88 mcg tablet 88 mcg PO HS Thyroid 03/02/24
lisinopril 5 mg tablet 5 mg PO DAILY Blood Pressure 03/02/24
metoprolol succinate 50 mg tablet,extended release 24 hr 50 mg PO DAILY Blood Pressure 03/02/24
nitroglycerin 0.4 mg sublingual tablet 0.4 mg sublingual [id number] PRN chest pain 03/02/24
primidone 50 mg tablet 150 mg PO DAILY Neurological Condition 03/02/24
primidone 50 mg tablet 200 mg PO HS Neurological Condition 03/02/24
rosuvastatin 20 mg tablet 20 mg PO HS High Cholesterol 03/02/24
zinc 50 mg tablet 50 mg PO HS Supplement 03/02/24
furosemide 20 mg tablet 20 mg PO DAILY 03/11/24
Review of Systems
-
Constitutional: Reports No Symptoms
EENT: Reports No Symptoms
Respiratory: Reports No Symptoms
Cardiac: Reports See HPI
Abdomen/GI: Reports No Symptoms
: Reports No Symptoms
Musculoskeletal: Reports No Symptoms
Skin: Reports No Symptoms
Neurological: Reports No Symptoms
Endocrine: Reports No Symptoms
Hematologic/Lymphatic: Reports No Symptoms
Psych: Reports No Symptoms
Physical Exam
Vital Signs
Vital Signs
Temp Pulse Resp BP Pulse Ox
98.1 F 76 17 143/77 96
03/10/24 21:52 03/11/24 00:30 03/11/24 00:30 03/11/24 00:30 03/11/24 00:30
Physical Exam
General: Well Developed, Well Nourished and No Apparent Distress
HEENT: NormoCephalic, Moist mucous membranes and Atraumatic
Respiratory: Clear
Cardiac: S1/S2 and Regular Rhythm; No Murmur or Rub
GI: Soft, Non Tender, Non Distended and Normal Bowel Sounds; No Organomegaly
Rectal: Deferred by Provider
Musculoskeletal: No Clubbing, No Cyanosis and No Edema
Skin: Other (small amount of bruising on the right inguinal region from recent cath but no swelling or mass); No Rash
Neuro: Nonfocal/grossly intact
Laboratory Results
-
03/10/24 22:38
03/10/24 22:38
Laboratory Results
Total Bilirubin 0.4 mg/dl (0.2-1.3) 03/10/24 22:38
AST 31 U/L (14-36) 03/10/24 22:38
ALT 26 U/L (0-35) 03/10/24 22:38
Alkaline Phosphatase 65 U/L (38-126) 03/10/24 22:38
Troponin I < 0.012 ng/ml 03/10/24 22:38
Data Reviewed
-
Medical Tests (Nuc Med, Echo, EKG etc): Report Reviewed by me
Lab Data: Labs Reviewed by me
Old Records: Reviewed
Impression/Plan
-
Reviewed VS: 207/114 ---> 143/
Data
Hgb 10.9
BUN 32
nl Cr
eGFR 59
NEG first TPNI
EKG
NORMAL SINUS RHYTHM
RIGHT BUNDLE BRANCH BLOCK
INFERIOR INFARCT (CITED ON OR BEFORE 09-OCT-2010)
ABNORMAL ECG
WHEN COMPARED WITH ECG OF 10-MAR-2024 21:59,
NO SIGNIFICANT CHANGE WAS FOUND
03/10/24 CT chest : No PE
Last admission to [facility] card service 03/02- 03/03/24
- [place] with abnormal positron emission technology stress, 02/25/2024.
- NSTEMI status post vein graft to the obtuse marginal angioplasty and stenting, 03/02/2024.
- CAD with previous coronary artery bypass grafting x4 in 2006.
- Right bundle branch block.
- Chronic pain syndrome.
ASSESSMENT & PLAN
CP associated with HTN urgency; Improved on NTG gtt
NEG first TPNI
Not acute ischemic EKG
- c/w NTG gtt, held IMN
- c/w DAPL
- Trend TPNI
- [facility] card consult
HLD
- c/w Fenofibrate and Rosuvastatin
Essential HTN
- c/w Lisinopril and Frusemide
DVT Px: LMWH
Code: full code
IMU
[2024-03-11 02:04] LABS: Troponin I < 0.012 ng/ml
--- NOTE | 2024-03-11 02:45 | PTCARENOTE ---
Rec'd pt from ER via stretcher on monitor & Nrg gtt at 100mic, pt painfree on adm, cooperative, oriented to routine, CHG bath done, SR w/ BBB, instructed to call if any CP, bp stable, weak distal pulses, skin warm/dry, RA, lungs clear, sat 95, +
bowel sounds, no bm, abd obese, soft, no n/v, adithya h20, voided carin urine on BSC
[2024-03-11 06:18] LABS: Hematocrit 29.6 % (37.0-47.0); Mean Corp Hgb Conc. 33.8 g/dL (33.0-37.0); Mean Corpuscular Hgb 30.9 pg (27.0-31.0); Mean Corpuscular Volume 91.4 fL (81.0-99.0); Mean Platelet Volume 10.8 fL (7.4-10.4); Platelet Count 220 10^3/uL (130-400); Red Blood Cell Count 3.24 10^6/uL (4.20-5.40); Red Cell Dist. Width 13.5 % (11.5-14.5); White Blood Cell Count 7.7 10^3/uL (4.8-10.8)
[2024-03-11 06:42] LABS: Troponin I < 0.012 ng/ml
[2024-03-11 06:46] LABS: ALT (SGPT) 23 U/L (0-35); AST (SGOT) 24 U/L (14-36); Albumin 3.8 g/dl (3.5-5.0); Alkaline Phosphatase 65 U/L (38-126); Blood Urea Nitrogen 32 mg/dl (7-17); Calcium 9.1 mg/dl (8.4-10.2); Carbon Dioxide 22 mmol/L (22-30); Chloride 106 mmol/L (98-107); Estimated Creatinine Clearance 73 ml/min; Glucose 146 mg/dl (70-99); Potassium 4.3 mmol/L (3.5-5.1); Sodium 137 mmol/L (135-145); Total Bilirubin 0.2 mg/dl (0.2-1.3); Total Protein 6.3 g/dl (6.3-8.2); eGFR > 60.00
--- NOTE | 2024-03-11 07:26 | CON.CAR ---
Addendum entered and electronically signed by Clayton Perez MD 03/11/24 13:07:
I saw and examined the patient.
The Grease Buffer's note was reviewed and I agree with the note.
Comment:
GEN: No distress, awake, Ox3
HEENT: supple, anicteric, mmm
LUNGS: CTA, no wheezes/rales
CV: Reg, S1/S2, 1/6 syst LSB, no gallop
ABD: soft, BS+, NT/ND
EXT: No edema
NEURO: Gross non-focal
SKIN: No rash
Plan:
She has a past history of coronary artery disease/CABG status post PCI 03/02/24 of saphenous vein graft to OM lesion, hypertension, and hyperlipidemia. She presents with chest tightness hypertensive urgency with troponin negative x 3. EKG is stable
with a known right bundle branch block. She was placed on nitro drip and her blood pressure has improved.
Clinically she feels better at this point. We will further titrate her medication and start with increasing lisinopril to 10 mg daily and this may need to be increased to 10 mg twice daily. Continue Toprol at 50 mg once daily and Imdur 30 mg
daily. Okay to wean nitroglycerin. Continue Lasix 20 mg daily.
Continue aspirin, Plavix, Crestor, Repatha, and fenofibrate.
will follow
Original Note:
Consultation
Consultation Request
Date/Time Consultation Requested: 03/10/24 at 2356
Date/Time Consultation Performed: 03/11/24 at 0761
Requesting Provider: Dr. Mendez
Performing Provider: Dr. Perez
Reason for Consultation: Chest pain, HTN urgency
Medical History
-
History of Present Illness:
Patient came to [facility] last night with ongoign chest pain and was admitted with HTN urgency, cardiology is now consulted. Patient was seen by Mg in the office 01/31/24 and complained of chest pain which prompted a PET stress test on 02/25/24. PET
stress test was abnormal leading to plans for outpatient cardiac cath, but patient started with USA on 03/02/24 and came to [facility]. Troponin initially undetectable, but given abnormal PET and USA patient was taken for cath same day. Cath showed a new
SVG to OM1-OM1 lesion that was stented. Post-cath Troponin peaked at 1.07. Echo was stable with preserved EF and no WMA. Patient was discharged to home on her usual doses of Imdur ER 30 mg daily, lisinopril 5 mg daily and Toprol XL 50 mg daily, but
her dose of Lasix was increased to 20 mg BID. Of note patient has been told to increase her dose of Imdur ER to 60 mg daily in the couple of days leading up to her admission while she was awaiting an outpatient cath, but following PCI the patient's
regular dose of Imdur ER 30 mg daily was resumed at discharge. Patient says that the higher dose of Lasix 20 mg BID caused leg cramps and so she could not take it. Otherwise she was taking her usual meds. She was not following BP at home, but felt
that she had increasing exercise intolerance within 2 days of discharge and then resting chest discomfort. Patient came to [facility] last night with ongoing chest pressure. Troponins have been serially undetectable. She was markedly HTN in the ER and
with ongoing chest pain she was started on Nitro gtt that is currently running at 95 mcg/min. She has been pain free since then, but has a WHITNEY.
PMH:
Recent admission for chest pain, PCI and elevated Troponin 03/02/24 until 03/03/24
USA with abnormal PET stress test 02/25/24
CAD
s/p CABG with REYES to LAD, SVG to OM-1 (1st branch), SVG seq to OM-1 (2nd branch) and then OM-2 2006
s/p cath with patent REYES to LAD, SVG to OM-1 (1st branch) patent and then occluded after the side of vein to side of artery anastomosis, SVG seq to OM-1 (2nd branch) and OM-2 was patent at [facility] 10/06/10
NSTEMI s/p 4.0 mm Xience stenting of the ostial SVG-OM1-OM 1 daughter-OM 2 03/02/24
cRBBB
HTN
Hyperlipidemia
h/o breast cancer
Hypothyroidism
Former smoker
Past Medical History
Past Medical History: Other (in HPI)
Past Surgical History: Cardiac (ABG at [facility] 2006, s/p SVG-OM1-OM 1 daughter-OM 2 with placement of a 4.0 x 38 mm Xience stent 03/02/24), Cholecystectomy and Gynecological ( [facility])
Social History
Tobacco: Former Smoker (quit 2010)
Alcohol: None
Drug: None
Personal:
Living: With Family
Family History
Family History: CAD and Diabetes
Allergies / Home Medications
Allergy/AdvReac Type Severity Reaction Status Date / Time
latex [Latex] Allergy Hives Verified 03/10/24 23:11
metronidazole [From Flagyl] Allergy Rash Verified 03/10/24 23:11
propranolol [From Inderal LA] Allergy Unknown Verified 03/10/24 23:11
Sulfa (Sulfonamide Allergy Hives Verified 03/10/24 23:11
Antibiotics)
�Medication �Instructions �Recorded �Confirmed �Type
acetaminophen 500 mg tablet 1,000 mg PO BIDPRN PRN mild pain 03/02/24 03/11/24 History
(Tylenol Extra Strength)
ascorbic acid (vitamin C) 500 mg 500 mg PO HS Supplement 03/02/24 03/11/24 History
tablet (Vitamin C)
aspirin 81 mg tablet,delayed 81 mg PO HS Blood Clot 03/02/24 03/11/24 History
release Prevention/Tx
cholecalciferol (vitamin D3) 1 tab PO HS Supplement 03/02/24 03/11/24 History
clopidogrel 75 mg tablet 75 mg PO DAILY Blood Clot 03/02/24 03/11/24 History
Prevention/Tx
cyanocobalamin (vitamin B-12) 500 500 mcg PO HS Supplement 03/02/24 03/11/24 History
mcg tablet
evolocumab 140 mg/mL subcutaneous 140 mg SC Q2W High Cholesterol 03/02/24 03/11/24 History
pen injector (Estela Mack)
fenofibrate 160 mg tablet 160 mg PO DAILY High Cholesterol 03/02/24 03/11/24 History
isosorbide mononitrate 30 mg 60 mg PO DAILY Heart 03/02/24 03/11/24 History
tablet,extended release 24 hr Disease/Condition
levothyroxine 88 mcg tablet 88 mcg PO HS Thyroid 03/02/24 03/11/24 History
lisinopril 5 mg tablet 5 mg PO DAILY Blood Pressure 03/02/24 03/11/24 History
metoprolol succinate 50 mg 50 mg PO DAILY Blood Pressure 03/02/24 03/11/24 History
tablet,extended release 24 hr
nitroglycerin 0.4 mg sublingual 0.4 mg sublingual [id number] PRN 03/02/24 03/11/24 History
tablet chest pain
primidone 50 mg tablet 150 mg PO DAILY Neurological 03/02/24 03/11/24 History
Condition
primidone 50 mg tablet 200 mg PO HS Neurological Condition 03/02/24 03/11/24 History
rosuvastatin 20 mg tablet 20 mg PO HS High Cholesterol 03/02/24 03/11/24 History
zinc 50 mg tablet 50 mg PO HS Supplement 03/02/24 03/11/24 History
furosemide 20 mg tablet 20 mg PO DAILY 03/11/24 03/11/24 History
Review of Systems
-
History Source: Patient
All other systems: Negative unless noted
Physical Exam
Vital Signs
Temp Pulse Resp BP Pulse Ox
97.7 F 64 16 128/69 94
03/11/24 03:00 03/11/24 06:35 03/11/24 06:35 03/11/24 06:35 03/11/24 06:30
GEN: NAD. AAOx3
HEENT: EOMI, MMM
LUNGS: CTA B/L, no wheezes or rales
CV: Reg, S1/S2, no murmur
ABD: soft, BS+, NT, ND
EXT: Trace left worse than right non-pitting B/L LE edema. No clubbing, cyanosis or lesions B/L
NEURO: Gross non-focal
SKIN: Warm, dry and pink. No rash
Lab Results
03/11/24 06:00
03/11/24 06:00
Troponin I < 0.012 ng/ml 03/11/24 06:00
Impression / Plan
-
PCP: Annamaria Bourne MD
CDY: Lacy Holliday MD
Impression:
Chest pain
Recent admission for chest pain, PCI and elevated Troponin 03/02/24 until 03/03/24
USA with abnormal PET stress test 02/25/24
CAD
s/p CABG with REYES to LAD, SVG to OM-1 (1st branch), SVG seq to OM-1 (2nd branch) and then OM-2 2006
s/p cath with patent REYES to LAD, SVG to OM-1 (1st branch) patent and then occluded after the side of vein to side of artery anastomosis, SVG seq to OM-1 (2nd branch) and OM-2 was patent at [facility] 10/06/10
NSTEMI s/p 4.0 mm Xience stenting of the ostial SVG-OM1-OM 1 daughter-OM 2 03/02/24
cRBBB
HTN
Hyperlipidemia
h/o breast cancer
Hypothyroidism
Former smoker
PET stress test 02/25/24: Perfusion imaging reveals a small mild fixed apical defect consistent with prior infarction, small mild reversible anterolateral defect consistent with ischemia, EF 60% at rest and after administration of stress agent,
ventricle is normal in size
Echo 03/03/24: EF 55-60%, no WMA, normal RV size and function
Plan:
-Patient came to [facility] last night with ongoign chest pain and was admitted with HTN urgency, cardiology is now consulted. Patient was seen by Mg in the office 01/31/24 and complained of chest pain which prompted a PET stress test on 02/25/24.
PET stress test was abnormal leading to plans for outpatient cardiac cath, but patient started with USA on 03/02/24 and came to [facility]. Troponin initially undetectable, but given abnormal PET and USA patient was taken for cath same day. Cath showed a
new SVG to OM1-OM1 lesion that was stented. Post-cath Troponin peaked at 1.07. Echo was stable with preserved EF and no WMA. Patient was discharged to home on her usual doses of Imdur ER 30 mg daily, lisinopril 5 mg daily and Toprol XL 50 mg daily,
but her dose of Lasix was increased to 20 mg BID. Of note patient has been told to increase her dose of Imdur ER to 60 mg daily in the couple of days leading up to her admission while she was awaiting an outpatient cath, but following PCI the
patient's regular dose of Imdur ER 30 mg daily was resumed at discharge. Patient says that the higher dose of Lasix 20 mg BID caused leg cramps and so she could not take it. Otherwise she was taking her usual meds. She was not following BP at home,
but felt that she had increasing exercise intolerance within 2 days of discharge and then resting chest discomfort. Patient came to [facility] last night with ongoing chest pressure. Troponins have been serially undetectable. She was markedly HTN in the
ER and with ongoing chest pain she was started on Nitro gtt that is currently running at 95 mcg/min. She has been pain free since then, but has a WHITNEY.
-BP was elevated throughout most of her admission last week.
-ECG reviewed by me SR and cRBBB. No acute ST changes.
-Patient with chest pain on admission, but serially undetectable Troponin in the setting of HTN. Will manage as HTN urgency.
-Nitro gtt running at 95 mcg/min, will start to wean.
-Resume outpatient dose of Imdur ER 30 mg daily.
-Will increase lisinopril to 10 mg daily as a first step. Could consider a bigger increase in dosing or adding another agent such as hydralazine.
-Cont usual dose of Toprol XL 50 mg daily.
-Resume previous dose of Lasix 20 mg daily, patient reports leg cramps with higher dosing and had to stop taking higher dose prior to admission. Potassium was normal on admission.
-Cont usual doses of aspirin and Plavix.
--- NOTE | 2024-03-11 08:00 | PTCARENOTE ---
Received pt awake and alert.Speech is appropriate.Gait is steady.c/o severe frontal headache.Tylenol given as ordered with relief.SR noted.NTG Infusing as ordered.Pt is chest pain/discomfort free at this time.Lungs CTA.POX 97% on RA.c/o nausea.No
emesis.No BM.Voiding yellow urine.Skin integrity as documented.
--- NOTE | 2024-03-11 08:29 | W.PN.HOSP.TC ---
Today's Communication/Plan
-
F/U further cardiology recs
Assessment / Plan
Assessment / Plan
Last admission to [facility] card service 03/02- 03/03/24
- USA with abnormal positron emission technology stress, 02/25/2024.
- NSTEMI status post vein graft to the obtuse marginal angioplasty and stenting, 03/02/2024.
- CAD with previous coronary artery bypass grafting x4 in 2006.
- Right bundle branch block.
- Chronic pain syndrome.
TTE 03/03/24
CONCLUSIONS
1. Normal left ventricular size and systolic function without regional wall
motion abnormalities. Estimated left ventricular ejection fraction is 55 to
60%. Mild concentric left ventricular hypertrophy. Normal diastolic function.
2. Normal right ventricular size and systolic function.
3. No significant valvular abnormalities.
4. No pericardial effusion.
ASSESSMENT & PLAN
CP associated with HTN urgency; Improved on NTG gtt
Not acute ischemic EKG
- c/w NTG gtt, held IMN
- c/w DAPL
-INTERIOR DESIGN PROGRAM CHAIR Metoprolol
-INTERIOR DESIGN PROGRAM CHAIR Lisinopril
- Troponin negative x 3
- trial of maalox if pain returns
- [facility] card consult
HLD
- c/w Fenofibrate and Rosuvastatin
Essential HTN
- c/w Lisinopril and Frusemide
Heart Failure preserved EF
-TTE results above
-does not appear overloaded on exam
-INTERIOR DESIGN PROGRAM CHAIR lasix 20mg PO QD
DVT Px: LMWH
Code: full code
IMU
Anticipated Discharge: 24 - 48 hours
Subjective/Interval History
-
Date of Service: March 11, 2024
currently chest pain free but complaining of headache
no shortness of breath
no LE swelling
states pain wasn't related to eating or exertion
Objective Data
-
Labs:
Laboratory Results
03/10/24 03/11/24
22:38 06:00
WBC 9.3 7.7
Hgb 10.9 L 10.0 L
Hct 31.5 L 29.6 L
Plt Count 238 220
Sodium 138 137
Potassium 4.3 4.3
Chloride 104 106
Carbon Dioxide 26 22
BUN 32 H 32 H
Creatinine 1.0 0.8
Glucose 103 H 146 H
Calcium 9.4 9.1
Total Bilirubin 0.4 0.2
AST 31 24
ALT 26 23
Alkaline Phosphatase 65 65
Vital Signs:
Vital Signs
Temp Pulse Resp BP Pulse Ox
97.9 F 64 16 128/69 94
03/11/24 07:34 03/11/24 06:35 03/11/24 06:35 03/11/24 06:35 03/11/24 06:30
I&O
03/10/24 03/11/24 03/12/24
06:59 06:59 06:59
Intake Total 94.3 / 94.3
Output Total 600 / 600
Balance -505.7 / -505.7
Review of Systems
-
History Source: Patient
All other systems: Reviewed and negative
Physical Exam
-
General: No Apparent Distress
HEENT: PERRLA
Respiratory: Clear to Auscultation; Negative Wheezes
Cardiac: Regular Rhythm and S1/S2
GI: Soft and Nontender
Musculoskeletal: No Edema
Skin: Warm and Dry; Negative Rash
Neuro: AO x 3
Psych: Calm
Data Reviewed
-
Diagnostic Radiology: Report Reviewed by me
Labs: Labs Reviewed by me
[2024-03-11] MEDS: LASIX 20 MG PO (09:08)
[2024-03-11] MEDS: ZESTRIL 5 MG PO ×2 (09:08→09:40)
[2024-03-11] MEDS: TRICOR 145 MG PO (09:08)
[2024-03-11] MEDS: PLAVIX 75 MG PO (09:08)
[2024-03-11] MEDS: TOPROL XL 50 MG PO (09:08)
[2024-03-11] MEDS: MYSOLINE 150 MG PO (09:09)
[2024-03-11] MEDS: TYLENOL 1000 MG PO (09:39)
[2024-03-11 10:50] LABS: Troponin I < 0.012 ng/ml
[2024-03-11 11:04] LABS: Glycohemoglobin (HgbA1c) 5.4 % (4.0-5.6)
[2024-03-11] MEDS: ZOFRAN 4 MG IV (11:07)
--- NOTE | 2024-03-11 11:25 | CM ---
CM following re: discharge planning.
Reviewed pt's chart, met with pt and pt's at bedside.
Pt is a 73 year old female, admitted with primary dx of Chest pain.
Pt reports she lives with in a 2SH, 3 steps to enter, has 3 supportive children. 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 No DME, VN or SNF history.
PCP: Annamaria Bourne
Pharmacy: [facility].
D/C plan: home with anticipated no needs. to transport at discharge.
CM will follow with discharge plan updates as hospitalization progresses
--- NOTE | 2024-03-11 12:00 | PTCARENOTE ---
Pt assessed.Head ache has resolved.NTG weaning as ordered.Pt assisted OOB to chair.Gait is steady.
[2024-03-11] MEDS: ZESTRIL 10 MG PO (12:13)
--- NOTE | 2024-03-11 16:02 | PTCARENOTE ---
Pt assessed.No change in assessment noted.Nausea has resolved.Pt is sitting comfortably in recliner.
[2024-03-11 16:06] LABS: Troponin I 0.014 ng/ml
[2024-03-11] MEDS: LOVENOX 40 MG SC (18:06)
--- NOTE | 2024-03-11 20:47 | TRANSFER ---
Patient transported in wheelchair to IVU with belongings.
[2024-03-11] MEDS: SYNTHROID 88 MCG PO (20:59)
[2024-03-11] MEDS: ASPIR LOW (ENTERIC COATED) 81 MG PO (20:59)
[2024-03-11] MEDS: CRESTOR 20 MG PO (20:59)
[2024-03-11] MEDS: MYSOLINE 200 MG PO (20:59)
--- NOTE | 2024-03-11 21:10 | PTCARENOTE ---
Patient received from ICU, oriented to room and call JOSE garcia, LINDA BBB
[2024-03-12 05:10] VITALS: BP 140/65
[2024-03-12 05:34] LABS: Hematocrit 30.7 % (37.0-47.0); Hemoglobin 10.5 g/dL (12.0-16.0); Mean Corp Hgb Conc. 34.2 g/dL (33.0-37.0); Mean Corpuscular Hgb 30.9 pg (27.0-31.0); Mean Corpuscular Volume 90.3 fL (81.0-99.0); Mean Platelet Volume 10.8 fL (7.4-10.4); Platelet Count 230 10^3/uL (130-400); Red Cell Dist. Width 13.7 % (11.5-14.5); White Blood Cell Count 6.9 10^3/uL (4.8-10.8)
[2024-03-12 05:41] VITALS: BMI 42.1
[2024-03-12 05:58] LABS: Blood Urea Nitrogen 33 mg/dl (7-17); Calcium 9.7 mg/dl (8.4-10.2); Carbon Dioxide 23 mmol/L (22-30); Chloride 107 mmol/L (98-107); Estimated Creatinine Clearance 65 ml/min; Glucose 92 mg/dl (70-99); Magnesium 1.9 mg/dl (1.6-2.3); Potassium 4.5 mmol/L (3.5-5.1); Sodium 140 mmol/L (135-145); eGFR > 60.00
[2024-03-12 06:00] VITALS: BMI 42.1
--- NOTE | 2024-03-12 07:44 | W.PN.HOSP.TC ---
Addendum entered and electronically signed by Marly Mendez MD 03/12/24 09:59:
morbid obesity
-appreciate dietary
Original Note:
Today's Communication/Plan
-
monitor BP this morning, possible DC later today
Assessment / Plan
Assessment / Plan
Last admission to [facility] card service 03/02- 03/03/24
- USA with abnormal positron emission technology stress, 02/25/2024.
- NSTEMI status post vein graft to the obtuse marginal angioplasty and stenting, 03/02/2024.
- CAD with previous coronary artery bypass grafting x4 in 2006.
- Right bundle branch block.
- Chronic pain syndrome.
TTE 03/03/24
CONCLUSIONS
1. Normal left ventricular size and systolic function without regional wall
motion abnormalities. Estimated left ventricular ejection fraction is 55 to
60%. Mild concentric left ventricular hypertrophy. Normal diastolic function.
2. Normal right ventricular size and systolic function.
3. No significant valvular abnormalities.
4. No pericardial effusion.
ASSESSMENT & PLAN
CP associated with HTN urgency; Improved on NTG gtt
Not acute ischemic EKG
-now off nitro
-ECOLOGICAL RISK ASSESSOR Lisinopril increased with good control of BP
-continue asa/statin
-ECOLOGICAL RISK ASSESSOR Metoprolol
- Troponin negative x 3
-possible DC later today
HLD
- c/w Fenofibrate and Rosuvastatin
Essential HTN
- c/w Lisinopril and Furosemide
Heart Failure preserved EF
-TTE results above
-does not appear overloaded on exam
-ECOLOGICAL RISK ASSESSOR lasix 20mg PO QD
DVT Px: LMWH
Code: full code
IMU
Anticipated Discharge: Within 24 hours
Subjective/Interval History
-
Date of Service: March 12, 2024
feeling well
blood pressure controlled
hoping to go home later today
Objective Data
-
Labs:
Laboratory Results
03/12/24
05:19
WBC 6.9
Hgb 10.5 L
Hct 30.7 L
Plt Count 230
Sodium 140
Potassium 4.5
Chloride 107
Carbon Dioxide 23
BUN 33 H
Creatinine 0.9
Glucose 92
Calcium 9.7
Vital Signs:
Vital Signs
Temp Pulse Resp BP Pulse Ox
97.8 F 53 20 140/65 97
03/12/24 05:11 03/12/24 06:00 03/12/24 05:11 03/12/24 05:10 03/12/24 05:11
I&O
03/11/24 03/12/24 03/13/24
06:59 06:59 06:59
Intake Total 94.3 / 94.3 801.5 / 801.5
Output Total 600 / 600
Balance -505.7 / -505.7 801.5 / 801.5
Review of Systems
-
History Source: Patient
All other systems: Reviewed and negative
Physical Exam
-
General: No Apparent Distress
HEENT: PERRLA
Respiratory: Clear to Auscultation; Negative Wheezes
Cardiac: Regular Rhythm and S1/S2
GI: Soft and Nontender
Musculoskeletal: No Edema
Skin: Warm and Dry; Negative Rash
Neuro: AO x 3
Psych: Calm
Data Reviewed
-
Diagnostic Radiology: Report Reviewed by me
Labs: Labs Reviewed by me
[2024-03-12 07:48] VITALS: BP 158/72
[2024-03-12] MEDS: LASIX 20 MG PO (08:47)
[2024-03-12] MEDS: PLAVIX 75 MG PO (08:47)
[2024-03-12] MEDS: TRICOR 145 MG PO (08:47)
[2024-03-12] MEDS: ZESTRIL 20 MG PO (08:48)
[2024-03-12] MEDS: TOPROL XL 50 MG PO (08:48)
[2024-03-12] MEDS: MYSOLINE 150 MG PO (08:48)
--- NOTE | 2024-03-12 09:07 | W.PN.CARDCBS ---
Addendum entered and electronically signed by Marla Byrd PA-C 03/12/24 14:25:
discussed dosing of imdur with patient. is was noted that patient had been on imdur 60mg daily leading up to cath however then was reportedly to decrease dose to 30mg daily, which is on her 03/03/24 DC paperwork. patient states she was unaware of this
and has been taking 60mg daily the last several days. based on this, will plan to DC patient on imdur 60mg daily and will have her follow her BPs at home. she knows to call us with lightheadedness/hypotension or conversely with elevated
BPs/headaches. patient to be reassessed in office Friday 03/16. d/w nursing
Addendum entered and electronically signed by Clayton Perez MD 03/12/24 10:16:
I saw and examined the patient.
[facility] [employer]'s note was reviewed and I agree with the note.
Comment:
GEN: No distress, awake, Ox3
HEENT: supple, anicteric, mmm
LUNGS: CTA, no wheezes/rales
CV: Reg, S1/S2, 1/6 syst LSB, no gallop
ABD: soft, BS+, NT/ND
EXT: No edema
NEURO: Gross non-focal
SKIN: No rash
Plan:
Her chest pains have resolved. Blood pressure is overall improved. Will continue lisinopril 20 mg daily. Continue Toprol and Imdur.
Continue medical therapy for coronary artery disease status post recent PCI of saphenous vein graft.
Okay for discharge.
Has appointment next week for follow-up.
Original Note:
Today's Communication / Plan
-
follow BP trends
may need further uptitration of lisinopril vs addition of hydralazine
ambulate
for possible DC to home later today
Impression / Plan
-
PCP: Annamaria Bourne MD
CDY: Lacy Holliday MD
Impression:
Chest pain
Recent admission for chest pain, PCI and elevated Troponin 03/02/24 until 03/03/24
USA with abnormal PET stress test 02/25/24
CAD
s/p CABG with REYES to LAD, SVG to OM-1 (1st branch), SVG seq to OM-1 (2nd branch) and then OM-2 2006
s/p cath with patent REYES to LAD, SVG to OM-1 (1st branch) patent and then occluded after the side of vein to side of artery anastomosis, SVG seq to OM-1 (2nd branch) and OM-2 was patent at [facility] 10/06/10
NSTEMI s/p 4.0 mm Xience stenting of the ostial SVG-OM1-OM 1 daughter-OM 2 03/02/24
cRBBB
HTN
Hyperlipidemia
h/o breast cancer
Hypothyroidism
Former smoker
PET stress test 02/25/24: Perfusion imaging reveals a small mild fixed apical defect consistent with prior infarction, small mild reversible anterolateral defect consistent with ischemia, EF 60% at rest and after administration of stress agent,
ventricle is normal in size
Echo 03/03/24: EF 55-60%, no WMA, normal RV size and function
Plan:
-Presented with chest pain, felt to be secondary to HTN urgency. trops serially negative.
-chest CT without acute cardiopulm process
-Blood pressure trends appear to be improving. Weaned off of IV nitro. May consider further uptitration of lisinopril vs addition of hydralazine.
-Continue Toprol 50 mg daily. Sinus bradycardia on review of telemetry. One 9 beat run of NSVT overnight, asymptomatic. K/mag stable
-continue outpatient dose of Imdur ER 30 mg daily.
-continue Lasix 20 mg daily, patient reports leg cramps with higher dosing and had to stop taking higher dose prior to admission. Potassium was normal on admission.
-Cont usual doses of aspirin and Plavix.
-for possible DC to home later today
-will arrange OP cardiac follow up
-d/w hospitalist
PREADMIT DATA:
-Patient came to [facility] last night with ongoing chest pain and was admitted with HTN urgency, cardiology is now consulted. Patient was seen by Mg in the office 01/31/24 and complained of chest pain which prompted a PET stress test on 02/25/24.
PET stress test was abnormal leading to plans for outpatient cardiac cath, but patient started with USA on 03/02/24 and came to [facility]. Troponin initially undetectable, but given abnormal PET and USA patient was taken for cath same day. Cath showed a
new SVG to OM1-OM1 lesion that was stented. Post-cath Troponin peaked at 1.07. Echo was stable with preserved EF and no WMA. Patient was discharged to home on her usual doses of Imdur ER 30 mg daily, lisinopril 5 mg daily and Toprol XL 50 mg daily,
but her dose of Lasix was increased to 20 mg BID. Of note patient has been told to increase her dose of Imdur ER to 60 mg daily in the couple of days leading up to her admission while she was awaiting an outpatient cath, but following PCI the
patient's regular dose of Imdur ER 30 mg daily was resumed at discharge. Patient says that the higher dose of Lasix 20 mg BID caused leg cramps and so she could not take it. Otherwise she was taking her usual meds. She was not following BP at home,
but felt that she had increasing exercise intolerance within 2 days of discharge and then resting chest discomfort. Patient came to [facility] last night with ongoing chest pressure. Troponins have been serially undetectable. She was markedly HTN in the
ER and with ongoing chest pain she was started on Nitro gtt that is currently running at 95 mcg/min. She has been pain free since then, but has a WHITNEY.
Progress Note - Leather [employer]er
Subjective
Date of Service: March 12, 2024
No chest pain overnight
Objective
Labs:
03/12/24 05:19
03/12/24 05:19
Labs
Hgb 10.5 g/dL (12.0-16.0) L 03/12/24 05:19
Hct 30.7 % (37.0-47.0) L 03/12/24 05:19
Plt Count 230 10^3/uL (130-400) 03/12/24 05:19
Sodium 140 mmol/L (135-145) 03/12/24 05:19
Potassium 4.5 mmol/L (3.5-5.1) 03/12/24 05:19
BUN 33 mg/dl (7-17) H 03/12/24 05:19
Creatinine 0.9 mg/dL (0.6-1.0) 03/12/24 05:19
Glucose 92 mg/dl (70-99) 03/12/24 05:19
Troponins
03/10/24 03/11/24 03/11/24
22:38 01:23 06:00
Troponin I < 0.012 < 0.012 < 0.012
03/11/24 03/11/24
09:35 15:26
Troponin I < 0.012 0.014
Vital Signs and I&O:
Vital Signs
Temp Pulse Resp BP Pulse Ox
97.9 F 61 20 158/72 95
03/12/24 07:45 03/12/24 08:47 03/12/24 07:45 03/12/24 08:47 03/12/24 07:48
Vital Signs
Temp Pulse Resp BP Pulse Ox
97.9 F 61 20 158/72 95
03/12/24 07:45 03/12/24 08:47 03/12/24 07:45 03/12/24 08:47 03/12/24 07:48
Intake & Output
03/10/24 03/11/24 03/12/24 03/13/24
07:59 07:59 07:59 07:59
Intake Total 94.3 / 94.3 801.5 / 801.5
Output Total 600 / 600
Balance -505.7 / -505.7 801.5 / 801.5
Physical Exam
Physical Exam
GEN: No distress, awake, alert, oriented x3
HEENT: supple, anicteric, mmm, eomi
LUNGS: CTA B/L, no wheezes/rales
CV: Reg, S1/S2, no murmur
EXT: No cyanosis, clubbing, edema
NEURO: Gross non-focal
SKIN: Warm, pink, dry. No rash
--- NOTE | 2024-03-12 09:14 | PN.CDI ---
CDI
- -
CDI:
Physician Documentation Request
Admit Date: 03/11/24 02:00
Dear Doctor Vanessa,
Please review the following and provide your response in the progress notes.
Clinical Indicators:
Pt admitted with chest pain and hypertensive urgency.
Registered dietitian note: 'Chart reviewed due to pt with BMI > 40 morbidly obese range..'
If possible, please provide an associated diagnosis related to the abnormal BMI, such as:
BMI > or = to 40
Overweight
Obesity:
Due to excess calories
Drug induced
Due to other cause
Severe or morbid obesity:
With alveolar hypoventilation (Obesity hypoventilation syndrome)
Without alveolar hypoventilation
Morbid Obesity
BMI is not significant
Other
Use of terms such as suspected, likely, concern for, or probable (associated with a specific diagnosis that is being evaluated, monitored, or treated as if it exists) are acceptable and can be coded in the inpatient setting, when documented at the
time of discharge.
Thank you,
Magi Weaver RN, BSN
CDI Specialist
Available via [place] [employer]
Please use your independent medical judgment in providing your response.
[2024-03-12 11:47] VITALS: BP 145/62
--- NOTE | 2024-03-12 12:07 | CM ---
Reviewed chart. Mrs. Baldwin was transferred to IVU. Met with Mrs. Baldwin to review discharge plans. She states she is feeling well and is hoping to go home soon. She states prior to admission she resides with her spouse and son in a two story
home with three steps to enter. She states she has full flight of steps to get to the full bathroom/bedroom. She states she has powder room on the first floor. She states prior to admission she was independent with ambulation and adls. She states
she does not have any DME in the home. She states she has a prescription plan and uses [facility]. Medical work-up in progress. The discharge plan is to return home with her spouse and son when medically stable.
--- NOTE | 2024-03-12 13:23 | W.DS.TRANS ---
DC Summary - Mink Farmer
-
Discharge Instructions:
Discharge Diagnosis/Procedures hypertension and chest pain
Diet Regular
Activity As tolerated
Driving Restrictions As prior to admission
Bathing Restrictions None
Specialty Instructions Weigh Daily
Instructions: *DCA Heart Failure Instructions
Stand-Alone Forms:
Changes to Home Medications: Yes
Discharge Medications:
DC Medications w/original date entered in [facility]
acetaminophen 500 mg tablet (Tylenol Extra Strength) 1,000 mg PO BIDPRN PRN mild pain 03/02/24
ascorbic acid (vitamin C) 500 mg tablet (Vitamin C) 500 mg PO HS Supplement 03/02/24
aspirin 81 mg tablet,delayed release 81 mg PO HS Blood Clot Prevention/Tx 03/02/24
cholecalciferol (vitamin D3) 1 tab PO HS Supplement 03/02/24
clopidogrel 75 mg tablet 75 mg PO DAILY Blood Clot Prevention/Tx 03/02/24
cyanocobalamin (vitamin B-12) 500 mcg tablet 500 mcg PO HS Supplement 03/02/24
evolocumab 140 mg/mL subcutaneous pen injector (Repatha SureClick) 140 mg SC Q2W High Cholesterol 03/02/24
fenofibrate 160 mg tablet 160 mg PO DAILY High Cholesterol 03/02/24
isosorbide mononitrate 30 mg tablet,extended release 24 hr 60 mg PO DAILY Heart Disease/Condition 03/02/24
levothyroxine 88 mcg tablet 88 mcg PO HS Thyroid 03/02/24
metoprolol succinate 50 mg tablet,extended release 24 hr 50 mg PO DAILY Blood Pressure 03/02/24
nitroglycerin 0.4 mg sublingual tablet 0.4 mg sublingual [id number] PRN chest pain 03/02/24
primidone 50 mg tablet 150 mg PO DAILY Neurological Condition 03/02/24
primidone 50 mg tablet 200 mg PO HS Neurological Condition 03/02/24
rosuvastatin 20 mg tablet 20 mg PO HS High Cholesterol 03/02/24
zinc 50 mg tablet 50 mg PO HS Supplement 03/02/24
furosemide 20 mg tablet 20 mg PO DAILY 03/11/24
lisinopril 20 mg tablet 20 mg PO DAILY #30 tabs 03/12/24
Home Medication Changes
Lisinopril increased from 5mg daily to 20mg daily
Pending Results: No
--- NOTE | 2024-03-12 14:26 | W.DCSUMMARY ---
Discharge Summary
Discharge Data
Date of Admission: 03/11/24
Date of Discharge: 03/12/24
-
Pending Results: No
Hospital Course
Discharging Physician : Dr. Marly Mendez
Disposition : Home
Primary care physician : Dr. Annamaria Bourne
Principal Discharge diagnosis : Hypertensive Urgency, Chest pain
Hospital Course :
Ms. Laura Baldwin is a 73 yo woman with hx CAD/CABG s/p PCI 03/02/24, HTN, HLD represents to the ER one week post discharge was chest pain. She was found to be hypertensive to 170/83 up to 207/114 in the ER. EKG without ischemic changes and initial
Troponin negative. CTA without PE. She was placed on a nitro gtt with improvement in chest pain and blood pressure. She was admitted to medicine with cardiology consulting. Troponins remained negative x 3. Patient's Lisinopril dose was
increased from 5 to 20mg. Her Imdur was resumed and she was weaned off the nitro gtt. She felt well with good blood pressure control and no further chest pain. She felt ready to discharge today and has close follow up with Cardiology.
Time spent on discharge was 35 minutes.
Important imaging findings :
CTA 03/11/24
IMPRESSION:
There is no pulmonary embolism
No active cardiopulmonary disease
Atherosclerosis
Procedure findings :
Discharge Plan
-
Patient Disposition: Home (Routine Discharge)
Discharge Diagnosis/Procedures: hypertension and chest pain
Diet: Regular
Activity: As tolerated
Driving Restrictions: As prior to admission
Bathing Restrictions: None
Specialty Instructions: Weigh Daily- Call MD for wt gain/loss 3 lbs overnight/5 lbs in 1 week
Instructions: *DCA Heart Failure Instructions
Referrals:
Annamaria Bourne MD [Family Provider] - in less than 1 week
Yue Meza PA-C [Specified Professional Personl] - 03/16/24 3:20 pm (You have a cardiology follow-up appointment at the [place] office. Please call with questions)
Additional Discharge Medication Instructions: Stop Lisinopril 5mg tabs, this is increased to Lisinopril 20mg tablets. Take 1 tab daily.
Prescriptions:
New
lisinopril 20 mg Tablet
20 mg PO DAILY Qty: 30 0RF
Continued
primidone 50 mg Tablet
150 mg PO DAILY
primidone 50 mg Tablet
200 mg PO HS
metoprolol succinate 50 mg Tablet Extended Release 24 Hr
50 mg PO DAILY
isosorbide mononitrate 30 mg Tablet Extended Release 24 Hr
60 mg PO DAILY
clopidogrel 75 mg Tablet
75 mg PO DAILY
aspirin 81 mg Tablet,Delayed Release (Dr/Ec)
81 mg PO HS
acetaminophen [Tylenol Extra Strength] 500 mg Tablet
1,000 mg PO BIDPRN PRN (Reason: mild pain)
levothyroxine 88 mcg Tablet
88 mcg PO HS
cyanocobalamin (vitamin B-12) 500 mcg Tablet
500 mcg PO HS
ascorbic acid (vitamin C) [Vitamin C] 500 mg Tablet
500 mg PO HS
nitroglycerin 0.4 mg Tablet, Sublingual
0.4 mg SUBLINGUAL [id number] PRN (Reason: chest pain)
zinc 50 mg Tablet
50 mg PO HS
fenofibrate 160 mg tablet
160 mg PO DAILY
Repatha SureClick 140 mg/mL Pen Injector
140 mg SC Q2W
cholecalciferol (vitamin D3)
1 tab PO HS
rosuvastatin 20 mg Tablet
20 mg PO HS
furosemide 20 mg tablet
20 mg PO DAILY
Discontinued
lisinopril 5 mg Tablet
5 mg PO DAILY
Discharge Orders:
Discharge Patient (As Directed); Ordered 03/12/24
Ordered By: Marly Mendez
Care Plan Goals
Care Plan Goals:
Problem: Readiness for enhanced knowledge related to diagnosis and treatment plan
Goal: Understand your diagnosis and treatment plan needs, including medications if applicable.
Instructions: Know your diagnosis, underlying causes and treatment plan options, including medications if applicable. Consult with your health care team to learn about your diagnosis and treatment plan, including medications if applicable.
Discharge Date and Time
Print Language: INDONESIAN
[2024-03-12 19:01] LABS: Hepatitis C Antibody Negative (Negative)
== END 2024-03-12 14:39 | disposition home or self-care (01) | DRG 305 ==
LOC: IVU 02:00
PROVIDERS: Emergency Medicine; ADMITTING PHYSICIAN Internal Medicine; ATTENDING PHYSICIAN Student in an Organized Health Care Education/Training Program; EMERGENCY PHYSICIAN Emergency Medicine; FAMILY PHYSICIAN Family Medicine; OTHER PHYSICIAN Internal Medicine Cardiovascular Disease
DX: I16.0 Hypertensive urgency (principal); I50.32 Chronic diastolic (congestive) heart failure; Z68.41 Body mass index [BMI] 40.0-44.9, adult; Z87.891 Personal history of nicotine dependence; I70.90 Unspecified atherosclerosis; E78.5 Hyperlipidemia, unspecified; E66.01 Morbid (severe) obesity due to excess calories
CPT/HCPCS: 71275; 80048; 80053; 83036; 83735; 84484; 85025; 85027; 86803; 93005; 99285; Q9967

== ENCOUNTER → 2024-03-19 11:26 | Outpatient (REF) | payer OTHER, SELFPAY | LOC: HWWDC 11:26 | PROVIDERS: ATTENDING PHYSICIAN Family Medicine | DX: Z12.31 Encounter for screening mammogram for malignant neoplasm of breast (principal) | CPT/HCPCS: 77063; 77067 ==

== ENCOUNTER 2024-04-16 09:39 | Outpatient (RCR) | payer OTHER, SELFPAY | END 2024-04-16 23:59 | disposition home or self-care (01) | LOC: CRHB 09:39 | PROVIDERS: ATTENDING PHYSICIAN Internal Medicine Cardiovascular Disease | DX: I25.10 Atherosclerotic heart disease of native coronary artery without angina pectoris (principal); Z95.5 Presence of coronary angioplasty implant and graft | CPT/HCPCS: G0422; G0423 ==

== ENCOUNTER 2024-04-23 14:20 | Inpatient (IN) | payer OTHER, SELFPAY ==
[2024-04-23] VITALS (28 sets, daily range): BP systolic 119–172; BP diastolic 48–119; BMI 41.9; BMI 40.5
[2024-04-23] MEDS: LOW STRENGTH ASPIRIN 324 MG PO (09:54)
--- NOTE | 2024-04-23 09:57 | ED.GENMED ---
History of Present Illness
General
Chief Complaint: Chest Pain
Source: patient
Time Seen by Provider: 04/23/24 09:42
History of Present Illness
History of Present Illness:
74-year-old female presents to the emergency room complaining of chest pain. Patient states that she developed chest pain while walking in her home. Pain was a burning/heaviness that radiated to her left arm. This was typical for previous
episodes of angina. Patient had associated shortness of breath but denies diaphoresis or nausea. Patient had a recent cardiac catheterization with stent placement. Previous to this she had bypass surgery at [place] many years ago. Patient
currently sees Dr. Vizcaino in the office. She is pain-free now. Patient states she has been compliant with her Plavix. She has not missed any doses. This is the first episode of chest pain since her cath and stent in March.
Past History
Past History
ED Past Medical History: CAD, Cancer (Breast cancer), HTN, Hypercholesterolemia and TN
ED Past Surgical History: Cardiac (CABG), Cholecystectomy, Orthopedic (Ankle) and Other (Left breast lumpectomy)
Social History
Tobacco: Former smoker
Alcohol: None
Personal:
Living: with family
Employment: Retired
Family History
Family History: CAD and Other
Phy Exam
Physical Exam
Physical Exam:
General: Awake, Alert, Oriented X3. No acute distress.
Vitals: unremarkable
Head: Atraumatic
Eyes: Pupils equal, EOMI
Throat: Airway intact, no exudates
Neck: Trachea midline
Lungs: Clear and equal b/l
Heart: Regular rate, no murmurs
Abd: Soft, Nontender, No pulsatile mass
Neuro: Nonfocal
Skin: Warm, dry, no rash
Extremities: pulses equal b/l, no edema
Scores
Heart Score for Chest Pain Patients
STEMI patient?: No
History: Highly Suspicious
ECG: Nonspecific Repolarization
Age: >/= 65 years
Risk Factors: >/= 3 Risk Factors or History of CAD
Troponin: </= Normal Limit
Heart Score for Chest Pain Patients: 7
Heart Score Risk: 72.7 % MACE over next 6 weeks
Course
Orders/Labs/Results
Orders:
Orders
04/23/24
Electrocardiogram (*1) Stat
Comment: DONE EMR
Electrocardiogram (*1) Stat
Comment: DONE EMR
04/23/24 09:10
EKG [Electrocardiogram (*1)] Urgent
Reason for Study: Chest Pain
EKG- Treatment ONCE
04/23/24 09:49
Cardiac Monitoring- Treatment ONCE
Aspirin Chewable [Low Strength Aspirin] 324 mg PO NOW STA
CR Chest - 2 Views Urgent
Comment:
Reason For Exam: chest pain
04/23/24 09:51
Complete Blood Count/With Diff Urgent
Comprehensive Metabolic Panel Urgent
Magnesium Urgent
Comment: PROBNP & MAG ADDED ON BY FLOOR 2PM 04-23-24
NT-proBNP Urgent
PTT Urgent
Comment: Obtain baseline before beginning heparin infusion if not already collected
Troponin I Urgent
04/23/24 12:29
Troponin I Urgent
04/23/24 13:15
Nitroglycerin Sublingual [Nitrostat (Sublingual)] 0.4 mg SL [id number] PRN
04/23/24 13:19
Nitroglycerin Sublingual [Nitrostat (Sublingual)] 0.4 mg .ROUTE .STK-MED ONE
04/23/24 13:51
Furosemide [Lasix] 20 mg IV ONCE ONE
Heparin Protocol- PTT Orders As Directed
PTT per Heparin protocol: -Obtain CBC and baseline PTT - if not already collected.
-Obtain PTT 6 hours from start of infusion. Then, every 6 hours until 2 consecutive
PTT's are therapeutic. Then, PTT Daily.
-With each rate change, obtain PTT every 6 hours until 2 consecutive PTT's are
therapeutic. Then, PTT Daily.
Notify MD As Directed
Notify physician if: PTT is greater than or equal to 200.
04/23/24 13:52
Admit/Transfer Patient As Directed
Co-Sign Provider:
Level of Care: Inpatient admission
Assign to:: IVU
Physician / Group: Hospitalist
Diagnosis: UA
Reason for Hospitalization: UA
Expected length of stay greater than two midnights?: Yes
ELOS- Estimated Length of Stay in days: 3
I certify the patient meets the requirements for IP care: Yes
PRN Pain Medication Management As Directed
May give lesser potent ordered pain med per pt: Yes
preference::
Protocol:: Medication orders for pain may be administered in a
manner that supports deferring to patient preference
when the pt is:
- Requesting an ordered lesser potent pain medication.
Least to most potent pain medications are defined
as: acetaminophen < NSAID < tramadol < opioids
(morphine, oxycodone, hydromorphone).
- Requesting a lesser dose of the same medication IF
ORDERED.
- Requesting a less intrusive route of administration
if both routes are prescribed by the provider (PO <
IV).
04/23/24 13:55
Code Status As Directed
Resuscitation Status: Full Code
04/23/24 14:00
Heparin 46210 Units/250 ml 25,000 units in 250 ml IV PER PROTOCOL
Weight to be used for heparin protocol in kilograms (kg):: 107.2
Protocol:: Cardiac Tx/Acute Coronary
PTT Goal Range to be used:: PTT 73 to 111 seconds
Order type:: Initial
INITIAL Infusion Dose (UNITS/KG/hr) & then follow protocol:: 12 units/kg/hr
Infusion Dose in UNITS/hr & then follow protocol (UNITS/hr):: 1,000
INFUSION RATE in mL/hr & then follow protocol (mL/hr):: 10
PTT less than or equal to 64 seconds:: Increase rate by 200 units/hr (+ 2 mL/hr)
PTT 64.1 to 72.9 seconds:: Increase rate by 100 units/hr (+ 1 mL/hr)
PTT 73 to 111 seconds:: Target Range. No change in rate.
PTT 111.1 to 130.9 seconds:: Decrease rate by 100 units/hr (- 1 mL/hr)
PTT 131 to 199.9 seconds:: HOLD for 1 hr. Then decrease rate by 200 units/hr (- 2 mL/hr)
PTT greater than or equal to 200 seconds:: HOLD for 2 hrs & Notify Provider. Then decrease by 200 units/hr (-
2 mL/hr)
Lab follow-up:: Each change, PTT q6h until 2 consecutive are therapeutic. Then PTT
daily.
04/23/24 14:02
Add On- LAB Stat
Tests Added?: proBNP, magnesium serum
04/23/24 14:03
CARDIOLOGY CONSULT Urgent
Consulting Provider: Lacy Holliday
Was physician already notified: Yes
Reason for consult: UA
04/23/24 14:04
Clopidogrel Bisulfate [Plavix] 75 mg PO NOW STA
Metoprolol Xl [Toprol Xl] 50 mg PO NOW STA
04/23/24 15:00
Amlodipine [Norvasc] 5 mg PO DAILY
04/25/24 06:00
Complete Blood Count/No Diff Q2D
Comment: Notify MD if platelet count is <130,000 or decreases by 50% from baseline
04/27/24 06:00
Complete Blood Count/No Diff Q2D
Comment: Notify MD if platelet count is <130,000 or decreases by 50% from baseline
04/29/24 06:00
Complete Blood Count/No Diff Q2D
Comment: Notify MD if platelet count is <130,000 or decreases by 50% from baseline
05/01/24 06:00
Complete Blood Count/No Diff Q2D
Comment: Notify MD if platelet count is <130,000 or decreases by 50% from baseline
05/03/24 06:00
Complete Blood Count/No Diff Q2D
Comment: Notify MD if platelet count is <130,000 or decreases by 50% from baseline
05/05/24 06:00
Complete Blood Count/No Diff Q2D
Comment: Notify MD if platelet count is <130,000 or decreases by 50% from baseline
05/07/24 06:00
Complete Blood Count/No Diff Q2D
Comment: Notify MD if platelet count is <130,000 or decreases by 50% from baseline
05/09/24 06:00
Complete Blood Count/No Diff Q2D
Comment: Notify MD if platelet count is <130,000 or decreases by 50% from baseline
Abnormal Lab Results
04/23/24
09:51
WBC 11.6 H 10^3/uL
(4.8-10.8)
RBC 3.64 L 10^6/uL
(4.20-5.40)
Hgb 11.2 L g/dL
(12.0-16.0)
Hct 32.6 L %
(37.0-47.0)
MPV 10.8 H fL
(7.4-10.4)
Absolute Neuts (auto) 9.7 H 10^3/uL
(1.4-6.5)
Absolute Lymphs (auto) 1.1 L 10^3/uL
(1.2-3.4)
Absolute Monos (auto) 0.7 H 10^3/uL
(0.1-0.6)
Neutrophils % 83.8 H %
(42.2-75.2)
Lymphocytes % 9.4 L %
(20.5-51.1)
BUN 37 H mg/dl
(7-17)
Glucose 129 H mg/dl
(70-99)
Total Bilirubin 0.1 L mg/dl
(0.2-1.3)
04/23/24 13:51
04/23/24 09:51
Vital Signs
Initial and Last Documented VS:
Initial Vital Signs
Temp Pulse Resp BP Pulse Ox
98.9 F 64 18 154/66 96
04/23/24 09:27 04/23/24 09:27 04/23/24 09:27 04/23/24 09:27 04/23/24 09:27
Last Documented Vital Signs
Temp Pulse Resp BP Pulse Ox
98.9 F 64 20 145/77 97
04/23/24 09:27 04/23/24 13:15 04/23/24 13:15 04/23/24 15:28 04/23/24 13:15
MDM/Problems Addressed
Differential Diagnosis Includes:
Unstable angina, NSTEMI, pericarditis
MDM/Problems Addressed:
Patient presents with pain that sounds typical for her angina. She has no acute ischemic changes on her EKG. First troponin is normal. Cardiology consultation was obtained given the recent catheterization and high suspicion for recurrent angina.
Cardiology recommends hospitalization for trending of troponins and further evaluation. Patient had recurrent episode of chest pain. EKG shows no changes. Troponin remains normal.
*Radiology
Radiology exam reviewed: preliminary read by ED provider (Acute disease observed)
*Pulse Oximetry
Patient hypoxic: no
*EKG
Interpreted by ED Provider?: Yes
Interpretation: abnormal
Comparison EKG: no changes
Heart Rate: 76
Rate: normal
Rhythm: sinus
Interval: normal interval
QRS Pattern: right bundle branch block
Ischemia: no ischemia
*Hvac Engineer Interpretation
Rate: normal
Interpretation: normal
Heart Rate: 76
Rhythm: sinus
*Critical Care Note
Total Time (30-74mins, 75-104mins- exclusive of procedures): Not Applicable
Data Reviewed
Review of Other/Old Records Reveals: Operative Reports (Recent cardiac catheterization report) and Discharge Summary
Patient Management
Discussion with other providers: Hospitalist
ED Attending Note
-
Portions of this chart may have been created with voice recognition software.� Occasional wrong word or��sound alike� substitutions may have occurred due to the inherent limitations of voice recognition software.
Discharge Plan
Departure
Patient Disposition: Admit
Date of Disposition: 04/23/24
Time of Disposition: 13:08
Admit to: IVU
Presentation/result/management discussed w/ accepting MD/DO: Hospitalist
Condition: Fair
Discharge Problem:
Chest pain, CAD (coronary artery disease)
Interventions
Interventions:
*Risk Screen - Suicide Last Done: 04/23/24 09:58
*General Assessment Last Done: 04/23/24 09:27
*Neglect/Abuse Screening Last Done: 04/23/24 09:58
ED- Fall Risk Assessment Last Done: 04/23/24 09:58
*ED COVID-19 Vaccine History Last Done: 04/23/24 09:27
ED- Cardiac Assessment Last Done: 04/23/24 09:58
[2024-04-23 10:12] LABS: % Basophils 0.1 % (0-2); % Immature Granulocytes 0.3 % (0-0.5); % Lymphocytes 9.4 % (20.5-51.1); % Monocytes 6.4 % (1.7-9.3); % Neutrophils 83.8 % (42.2-75.2); Absolute Lymphocytes 1.1 10^3/uL (1.2-3.4); Absolute Monocytes 0.7 10^3/uL (0.1-0.6); Absolute Neutrophils 9.7 10^3/uL (1.4-6.5); Hematocrit 32.6 % (37.0-47.0); Hemoglobin 11.2 g/dL (12.0-16.0); Mean Corp Hgb Conc. 34.4 g/dL (33.0-37.0); Mean Corpuscular Hgb 30.8 pg (27.0-31.0); Mean Corpuscular Volume 89.6 fL (81.0-99.0); Mean Platelet Volume 10.8 fL (7.4-10.4); Nucleated Red Blood Cells % 0 %; Platelet Count 258 10^3/uL (130-400); Red Blood Cell Count 3.64 10^6/uL (4.20-5.40); Red Cell Dist. Width 13.4 % (11.5-14.5); White Blood Cell Count 11.6 10^3/uL (4.8-10.8)
[2024-04-23 10:31] LABS: ALT (SGPT) 18 U/L (0-35); AST (SGOT) 21 U/L (14-36); Albumin 4.3 g/dl (3.5-5.0); Alkaline Phosphatase 68 U/L (38-126); Blood Urea Nitrogen 37 mg/dl (7-17); Carbon Dioxide 25 mmol/L (22-30); Chloride 107 mmol/L (98-107); Estimated Creatinine Clearance 64 ml/min; Glucose 129 mg/dl (70-99); Potassium 4.5 mmol/L (3.5-5.1); Sodium 143 mmol/L (135-145); Total Bilirubin 0.1 mg/dl (0.2-1.3); Total Protein 6.8 g/dl (6.3-8.2); eGFR > 60.00
[2024-04-23 10:40] LABS: Troponin I < 0.012 ng/ml
--- NOTE | 2024-04-23 12:57 | CON.CAR ---
Addendum entered and electronically signed by Lacy Holliday DO 04/23/24 15:18:
I saw and examined the patient.
The [employer]'s note was reviewed and I agree with the note.
Comment: Patient seen and examined in ED 27. Her sister Kelsey Melgoza was by her bedside. Patient is a 73-year-old female with past medical history of CAD status post CABG. Earlier this year she had chest discomfort resulting in PET stress test
which was abnormal and underwent cardiac catheterization 03/02/2024 resulting in SVG to OM1/OM 1 lesion that was stented. She was discharged to home and then returned 10 days later with recurrent chest pain which was felt to be secondary to
hypertensive urgency. Medications were adjusted and patient was discharged. She has been participating in cardiac rehab. She states she has been compliant with all her medications. She reports she has had some shortness of breath, however has
not had recurrence of chest discomfort until this morning. She states around 5 AM she was walking around her house and developed chest burning reminiscent of her prior angina. She had radiation to her left arm. She took a sublingual nitro with
improvement. The pain then recurred 30 minutes later. She took another sublingual nitro which eased the pain but did not resolve it. She states she then climbed her stairs to lay down in her bed and the pain got significantly worse resulting in
her coming to the ER for further evaluation. Initial troponin negative. Cardiology consulted for evaluation
General: NAD, RA. AAOx3
HEENT: mmm
Respiratory: Clear and Non Labored Respirations
Cardiac: S1/S2 and Regular Rhythm, no murmur
GI: Soft, Non Tender, Non Distended and Normal Bowel Sounds
Musculoskeletal: No edema
Plan:
Presents with exertional chest pain concerning for angina with known significant coronary artery disease
-Fortunately currently chest pain-free but did have an episode of recurrent chest pain while in the ED
-trops negative x2. EKG SR with RBBB
-start IV heparin gtt
-continue toprol, imdur. add norvasc 5mg daily
-continue asa, plavix. patient reports compliance as OP
-check proBNP
-Reviewed prior left heart catheterization with Dr. Hodge. NPO after midnight for possible cath, discussed procedure with patient and friend at bedside
-d/w ER nursing. d/w hospitalist
Original Note:
Consultation
Consultation Request
Date/Time Consultation Performed: 04/23/24
Requesting Provider: Dr. Kebede
Performing Provider: Marla Byrd PA-C for Dr. Holliday
Reason for Consultation: CP
Medical History
-
Chief Complaint: CP
History of Present Illness:
Patient is a 73-year-old female with past medical history of CAD status post CABG. Earlier this year she had chest discomfort resulting in PET stress test which was abnormal and underwent cardiac catheterization 03/02/2024 resulting in SVG to OM1/OM
1 lesion that was stented. She was discharged to home and then returned 10 days later with recurrent chest pain which was felt to be secondary to hypertensive urgency. Medications were adjusted and patient was discharged. She has been
participating in cardiac rehab. She states she has been compliant with all her medications. She reports she has had some shortness of breath, however has not had recurrence of chest discomfort until this morning. She states around 5 AM she was
walking around her house and developed chest burning reminiscent of her prior angina. She had radiation to her left arm. She took a sublingual nitro with improvement. The pain then recurred 30 minutes later. She took another sublingual nitro
which eased the pain but did not resolve it. She states she then climbed her stairs to lay down in her bed and the pain got significantly worse resulting in her coming to the ER for further evaluation. Initial troponin negative. Cardiology
consulted for evaluation
PMH:
Recent admission for chest pain, PCI and elevated Troponin 03/02/24 until 03/03/24
USA with abnormal PET stress test 02/25/24
CAD
s/p CABG with REYES to LAD, SVG to OM-1 (1st branch), SVG seq to OM-1 (2nd branch) and then OM-2 2006
s/p cath with patent REYES to LAD, SVG to OM-1 (1st branch) patent and then occluded after the side of vein to side of artery anastomosis, SVG seq to OM-1 (2nd branch) and OM-2 was patent at [facility] 10/06/10
NSTEMI s/p 4.0 mm Xience stenting of the ostial SVG-OM1-OM 1 daughter-OM 2 03/02/24
cRBBB
HTN
Hyperlipidemia
h/o breast cancer
Hypothyroidism
Former smoker
Past Medical History
Past Medical History: Other (in HPI)
Past Surgical History: Cardiac (ABG at [facility] 2006, s/p SVG-OM1-OM 1 daughter-OM 2 with placement of a 4.0 x 38 mm Xience stent 03/02/24), Cholecystectomy and Gynecological ( [facility])
Social History
Tobacco: Former Smoker (quit 2010)
Alcohol: None
Drug: None
Personal:
Living: With Family
Family History
Family History: CAD and Diabetes
Allergies / Home Medications
Allergy/AdvReac Type Severity Reaction Status Date / Time
latex [Latex] Allergy Hives Verified 04/23/24 09:31
metronidazole [From Flagyl] Allergy Rash Verified 04/23/24 09:31
propranolol [From Inderal LA] Allergy Unknown Verified 04/23/24 09:31
Sulfa (Sulfonamide Allergy Hives Verified 04/23/24 09:31
Antibiotics)
�Medication �Instructions �Recorded �Confirmed �Type
acetaminophen 500 mg tablet 1,000 mg PO BIDPRN PRN mild pain 03/02/24 03/11/24 History
(Tylenol Extra Strength)
ascorbic acid (vitamin C) 500 mg 500 mg PO HS Supplement 03/02/24 03/11/24 History
tablet (Vitamin C)
aspirin 81 mg tablet,delayed 81 mg PO HS Blood Clot 03/02/24 03/11/24 History
release Prevention/Tx
cholecalciferol (vitamin D3) 1 tab PO HS Supplement 03/02/24 03/11/24 History
clopidogrel 75 mg tablet 75 mg PO DAILY Blood Clot 03/02/24 03/11/24 History
Prevention/Tx
cyanocobalamin (vitamin B-12) 500 500 mcg PO HS Supplement 03/02/24 03/11/24 History
mcg tablet
evolocumab 140 mg/mL subcutaneous 140 mg SC Q2W High Cholesterol 03/02/24 03/11/24 History
pen injector (Estela Mack)
fenofibrate 160 mg tablet 160 mg PO DAILY High Cholesterol 03/02/24 03/11/24 History
isosorbide mononitrate 30 mg 60 mg PO DAILY Heart 03/02/24 03/11/24 History
tablet,extended release 24 hr Disease/Condition
levothyroxine 88 mcg tablet 88 mcg PO HS Thyroid 03/02/24 03/11/24 History
metoprolol succinate 50 mg 50 mg PO DAILY Blood Pressure 03/02/24 03/11/24 History
tablet,extended release 24 hr
nitroglycerin 0.4 mg sublingual 0.4 mg sublingual [id number] PRN 03/02/24 03/11/24 History
tablet chest pain
primidone 50 mg tablet 150 mg PO DAILY Neurological 03/02/24 03/11/24 History
Condition
primidone 50 mg tablet 200 mg PO HS Neurological Condition 03/02/24 03/11/24 History
rosuvastatin 20 mg tablet 20 mg PO HS High Cholesterol 03/02/24 03/11/24 History
zinc 50 mg tablet 50 mg PO HS Supplement 03/02/24 03/11/24 History
furosemide 20 mg tablet 20 mg PO DAILY 03/11/24 03/11/24 History
lisinopril 20 mg tablet 20 mg PO DAILY #30 tabs 03/12/24 Rx
Review of Systems
-
History Source: Patient and Other (friend)
All other systems: Negative unless noted
Physical Exam
Vital Signs
Temp Pulse Resp BP Pulse Ox
98.9 F 56 14 140/48 98
04/23/24 09:27 04/23/24 12:15 04/23/24 12:15 04/23/24 12:00 04/23/24 12:15
Lab Results
04/23/24 09:51
04/23/24 09:51
Troponin I < 0.012 ng/ml 04/23/24 09:51
Physical Exam
General: No Apparent Distress and Comfortable
HEENT: Normocephalic, Anicteric and Moist Mucous Membranes
Respiratory: Clear and Non Labored Respirations
Cardiac: S1/S2 and Regular Rhythm
GI: Soft, Non Tender, Non Distended and Normal Bowel Sounds
Musculoskeletal: No Clubbing, No Cyanosis and No Edema
Skin: Warm and Dry
Neuro: AO x 3
Impression / Plan
-
PCP: Annamaria Bourne MD
CDY: Lacy Holliday MD
PMH:
Presentation with CP, concern for angina
Negative trops x2
Recent admission for chest pain, PCI and elevated Troponin 03/02/24 until 03/03/24
[place] with abnormal PET stress test 02/25/24
CAD
s/p CABG with REYES to LAD, SVG to OM-1 (1st branch), SVG seq to OM-1 (2nd branch) and then OM-2 2006
s/p cath with patent REYES to LAD, SVG to OM-1 (1st branch) patent and then occluded after the side of vein to side of artery anastomosis, SVG seq to OM-1 (2nd branch) and OM-2 was patent at [facility] 10/06/10
NSTEMI s/p 4.0 mm Xience stenting of the ostial SVG-OM1-OM 1 daughter-OM 2 03/02/24
cRBBB
HTN
Hyperlipidemia
h/o breast cancer
Hypothyroidism
Former smoker
PET stress test 02/25/24: Perfusion imaging reveals a small mild fixed apical defect consistent with prior infarction, small mild reversible anterolateral defect consistent with ischemia, EF 60% at rest and after administration of stress agent,
ventricle is normal in size
Echo 03/03/24: EF 55-60%, no WMA, normal RV size and function
Plan:
-she presents with chest pain, concerning for unstable angina
-trops negative x2. EKG SR with RBBB
-SL nitro PRN ordered
-given 324mg asa in ER
-start IV heparin
-continue toprol, imdur. add norvasc 5mg daily
-continue asa, plavix. patient reports compliance as OP
-check proBNP
-NPO after midnight for possible cath, discussed procedure with patient and friend at bedside
-d/w ER nursing. d/w hospitalist
PREADMIT DATA:
-Patient came to [facility] last night with ongoing chest pain and was admitted with HTN urgency, cardiology is now consulted. Patient was seen by Mg in the office 01/31/24 and complained of chest pain which prompted a PET stress test on 02/25/24.
PET stress test was abnormal leading to plans for outpatient cardiac cath, but patient started with USA on 03/02/24 and came to [facility]. Troponin initially undetectable, but given abnormal PET and USA patient was taken for cath same day. Cath showed a
new SVG to OM1-OM1 lesion that was stented. Post-cath Troponin peaked at 1.07. Echo was stable with preserved EF and no WMA. Patient was discharged to home on her usual doses of Imdur ER 30 mg daily, lisinopril 5 mg daily and Toprol XL 50 mg daily,
but her dose of Lasix was increased to 20 mg BID. Of note patient has been told to increase her dose of Imdur ER to 60 mg daily in the couple of days leading up to her admission while she was awaiting an outpatient cath, but following PCI the
patient's regular dose of Imdur ER 30 mg daily was resumed at discharge. Patient says that the higher dose of Lasix 20 mg BID caused leg cramps and so she could not take it. Otherwise she was taking her usual meds. She was not following BP at home,
but felt that she had increasing exercise intolerance within 2 days of discharge and then resting chest discomfort. Patient came to [facility] last night with ongoing chest pressure. Troponins have been serially undetectable. She was markedly HTN in the
ER and with ongoing chest pain she was started on Nitro gtt that is currently running at 95 mcg/min. She has been pain free since then, but has a WHITNEY.
Data Reviewed
-
EKG: Tracing Personally Visualized and interpreted
Radiology: Report Reviewed by me
Medical Tests (Nuc Med, Echo etc): Report Reviewed by me
Labs: Labs Reviewed by me
Old Records: Reviewed
[2024-04-23 13:01] LABS: Troponin I < 0.012 ng/ml
[2024-04-23] MEDS: NITROSTAT (SUBLINGUAL) 0.4 MG SL ×2 (13:20→15:23)
--- NOTE | 2024-04-23 14:00 | HPS.HSE ---
Family Physician
-
Family Physician: Annamaria Bourne
Chief Complaint
-
chest pain
History of Present Illness
73yo F with PMHx of HTN, HLD, hypothyroidism, L breast CA s/p RT and lumpectomy, R knee arthrplasty, CAD s/p NSTEMI and cardiac cath s/p PCI on 03/02/24 with subsequent andmssion for chest pain 2 days later, now came with serial episodes of cardiac
burning chest pain, similar in nature however happened for 3 times at home and continued in ED. Also noted some orthopnea. troponin neg on admission x2. CHest XR unremarkable. noted LE swelling over 24hours before presentation
Medical History
Past Medical History
Past Medical History: Reports Other
Additional Past Medical History:
See HPI
Past Surgical History: Reports Other
Additional Past Surgical History:
See HPI
Social History
Tobacco: Former Smoker
Alcohol: None
Drug: None
Family History
Family History: CAD
Allergies / Home Medications
Allergies reflects when Allergies were last updated in [employer].
Home Medications with original date entered in [employer]
Allergy/Medication List:
Allergies
Allergy/AdvReac Type Severity Reaction Status Date / Time
latex [Latex] Allergy Hives Verified 04/23/24 09:31
metronidazole [From Flagyl] Allergy Rash Verified 04/23/24 09:31
propranolol [From Inderal LA] Allergy Unknown Verified 04/23/24 09:31
Sulfa (Sulfonamide Allergy Hives Verified 04/23/24 09:31
Antibiotics)
Home Medications
ascorbic acid (vitamin C) 500 mg tablet (Vitamin C) 500 mg PO HS Supplement 03/02/24
aspirin 81 mg tablet,delayed release 81 mg PO HS Blood Clot Prevention/Tx 03/02/24
cholecalciferol (vitamin D3) 25 mcg (1,000 unit) tablet (Vitamin D3) 12.5 mcg PO DAILY Supplement ##0 03/02/24
clopidogrel 75 mg tablet 75 mg PO DAILY Blood Clot Prevention/Tx 03/02/24
cyanocobalamin (vitamin B-12) 500 mcg tablet 500 mcg PO HS Supplement 03/02/24
evolocumab 140 mg/mL subcutaneous pen injector (Repatha [employer]) 140 mg SC Q2W High Cholesterol 03/02/24
fenofibrate 160 mg tablet 160 mg PO DAILY High Cholesterol 03/02/24
isosorbide mononitrate 30 mg tablet,extended release 24 hr 60 mg PO DAILY Heart Disease/Condition 03/02/24
levothyroxine 88 mcg tablet 88 mcg PO HS Thyroid 03/02/24
metoprolol succinate 50 mg tablet,extended release 24 hr 50 mg PO DAILY Blood Pressure 03/02/24
primidone 50 mg tablet 150 mg PO DAILY Neurological Condition 03/02/24
primidone 50 mg tablet 200 mg PO HS Neurological Condition 03/02/24
rosuvastatin 20 mg tablet 20 mg PO HS High Cholesterol 03/02/24
zinc 50 mg tablet 50 mg PO HS Supplement 03/02/24
furosemide 20 mg tablet 20 mg PO QPM 03/11/24
lisinopril 20 mg tablet 20 mg PO QPM 04/23/24
Review of Systems
-
History Source: Patient
A 12 point ROS was completed and negative except as noted: Yes
Cardiac: Reports Chest Pain
Physical Exam
Vital Signs
Vital Signs
Temp Pulse Resp BP Pulse Ox
98.9 F 64 20 167/67 97
04/23/24 09:27 04/23/24 13:15 04/23/24 13:15 04/23/24 13:20 04/23/24 13:15
Physical Exam
General: No Apparent Distress and Obese
HEENT: NormoCephalic, Anicteric and Moist mucous membranes
Respiratory: Clear; No Wheezes, Rales or Crackles
Cardiac: S1/S2 and Regular Rhythm
GI: Soft, Non Tender and Non Distended
Genito-urinary: No costovertebral tender
Musculoskeletal: No Clubbing, No Cyanosis, Edema, Left Lower Extremity and Edema, Right Lower Extremity
Skin: Warm
Neuro: Awake, Alert, Oriented and AO x 3
Psych: Calm
Laboratory Results
-
04/23/24 09:51
Laboratory Results
Total Bilirubin 0.1 mg/dl (0.2-1.3) L 04/23/24 09:51
AST 21 U/L (14-36) 04/23/24 09:51
ALT 18 U/L (0-35) 04/23/24 09:51
Alkaline Phosphatase 68 U/L (38-126) 04/23/24 09:51
Troponin I < 0.012 ng/ml 04/23/24 12:29
Data Reviewed
-
Diagnostic Radiology: Report Reviewed by me
Lab Data: Labs Reviewed by me
Impression/Plan
-
A/P:
#UA
#CAD s/p PCI
#RBBB
EKG without ST elevation, SR
Cardiology consult
ASA, Plavix, Statin, BB to continue
O2 as needed
Morphine as needed
Nitro drip if worsening pain
Admit to CVICU
Serial trop
#Mild acute on chronic HFpEF
hold lasix in view of potential cath as per cardio
Follow weights and electrolytes
#Hypothyroidism
#Essential HTN
#Essential tremor
cont home meds
#Morbid obesity with BMI 41.9
Advise to decrease calorie intake
DVT ppx on hep
Full code
I have spent at least 78min admitting the patient, reviewing chart, test results, communicating with consultants and direct patient care
[2024-04-23] MEDS: NORVASC 5 MG PO (14:27)
[2024-04-23] MEDS: PLAVIX 75 MG PO (14:27)
[2024-04-23] MEDS: TOPROL XL 50 MG PO (14:28)
[2024-04-23] MEDS: HEPARIN 25000 UNITS/250 ML IV (14:29)
[2024-04-23 15:03] LABS: APTT 30.9 Sec (23.4-35.0)
[2024-04-23 15:28] LABS: Magnesium 1.6 mg/dl (1.6-2.3)
[2024-04-23 15:37] LABS: NT-proBNP 812 pg/ml
[2024-04-23] MEDS: NITROGLYCERIN PREMIX 250 IV ×2 (15:42→22:51)
[2024-04-23] MEDS: LASIX 20 MG PO (17:25)
[2024-04-23] MEDS: ZESTRIL 20 MG PO (17:25)
--- NOTE | 2024-04-23 19:14 | PTCARENOTE ---
Pt c/o cp, across chest, rated 4/10, NTG drip increased to 15mcg/min. BP 172/75. Cp was brief, was gone before we could get an EKG.
--- NOTE | 2024-04-23 19:23 | PTCARENOTE ---
Pt. received from previous shift. Pt. in bed with family member at the bedside. No complaints of chest pain at this time. Plan of care explained to patient. VS WNL. No complaints at this time. Continuing to monitor the pt.
[2024-04-23 20:54] LABS: APTT 39.3 Sec (23.4-35.0); INR 1.08
[2024-04-23] MEDS: SYNTHROID 88 MCG PO (21:15)
[2024-04-23] MEDS: VITAMIN B-12 500 MCG PO (21:15)
[2024-04-23] MEDS: ASPIR LOW (ENTERIC COATED) 81 MG PO (21:16)
[2024-04-23] MEDS: MYSOLINE 200 MG PO (21:16)
[2024-04-23 21:37] LABS: Troponin I < 0.012 ng/ml
[2024-04-23 21:48] LABS: Hepatitis C Antibody Negative (Negative)
[2024-04-24] VITALS (29 sets, daily range): BP systolic 107–150; BP diastolic 51–98
[2024-04-24 03:38] LABS: % Basophils 0.1 % (0-2); % Eosinophils 0.3 % (0-6); % Immature Granulocytes 0.4 % (0-0.5); % Lymphocytes 20.4 % (20.5-51.1); % Monocytes 7.7 % (1.7-9.3); % Neutrophils 71.1 % (42.2-75.2); Absolute Lymphocytes 1.9 10^3/uL (1.2-3.4); Absolute Monocytes 0.7 10^3/uL (0.1-0.6); Absolute Neutrophils 6.8 10^3/uL (1.4-6.5); Hematocrit 30.8 % (37.0-47.0); Hemoglobin 10.6 g/dL (12.0-16.0); Mean Corp Hgb Conc. 34.4 g/dL (33.0-37.0); Mean Corpuscular Hgb 30.6 pg (27.0-31.0); Mean Platelet Volume 10.9 fL (7.4-10.4); Nucleated Red Blood Cells % 0 %; Platelet Count 230 10^3/uL (130-400); Red Blood Cell Count 3.46 10^6/uL (4.20-5.40); Red Cell Dist. Width 13.7 % (11.5-14.5); White Blood Cell Count 9.5 10^3/uL (4.8-10.8)
[2024-04-24 03:53] LABS: APTT 55.8 Sec (23.4-35.0)
[2024-04-24 04:07] LABS: Troponin I < 0.012 ng/ml
[2024-04-24 04:20] LABS: ALT (SGPT) 18 U/L (0-35); AST (SGOT) 22 U/L (14-36); Albumin 4.2 g/dl (3.5-5.0); Alkaline Phosphatase 67 U/L (38-126); Blood Urea Nitrogen 37 mg/dl (7-17); Calcium 9.7 mg/dl (8.4-10.2); Carbon Dioxide 20 mmol/L (22-30); Chloride 107 mmol/L (98-107); Estimated Creatinine Clearance 63 ml/min; Glucose 91 mg/dl (70-99); HDL Cholesterol 60 mg/dl; LDL Cholesterol, Calculated -3 mg/dl; Magnesium 1.7 mg/dl (1.6-2.3); Potassium 4.7 mmol/L (3.5-5.1); Sodium 143 mmol/L (135-145); Total Bilirubin 0.2 mg/dl (0.2-1.3); Total Cholesterol 93 mg/dl (50-199); Total Protein 6.7 g/dl (6.3-8.2); Triglyceride 183 mg/dl (10-149); Very Low Density Lipoprotein 36 mg/dl (0-30); eGFR > 60.00
[2024-04-24 04:37] LABS: TSH 3.63 uIU/ml (0.47-4.68)
--- NOTE | 2024-04-24 07:51 | W.PN.HOSP.TC ---
Today's Communication/Plan
-
on nitro drip
pending further cardio mgmt
Assessment / Plan
Assessment / Plan
73yo F with PMHx of HTN, HLD, hypothyroidism, L breast CA s/p RT and lumpectomy, R knee arthrplasty, CAD s/p NSTEMI and cardiac cath s/p PCI on 03/02/24 with subsequent andmssion for chest pain 2 days later, now came with serial episodes of cardiac
burning chest pain
A/P:
#UA
#CAD s/p PCI
#RBBB
EKG without ST elevation, SR
Cardiology consult
ASA, Plavix, Statin, BB to continue
O2 as needed
Morphine as needed
Nitro drip
Admit to IMU
Serial trop remais neg
TSH WNL, mildly elevated triglycerides
#Mild acute on chronic HFpEF
hold lasix in view of potential cath as per cardio
Follow weights and electrolytes
#Hypothyroidism
#Essential HTN
#Essential tremor
cont home meds
#Morbid obesity with BMI 41.9
Advise to decrease calorie intake
#Chronic mild anemia
follow up with PCP for the further w/u
#Benign type calcifications in L breast
patient already followed by her doctor and had recent mammo
DVT ppx on hep drip
Full code
I have spent at lest 38min reviewing chart, test results, communication with consultants and direct patient care
Anticipated Discharge: 24 - 48 hours
Subjective/Interval History
-
Date of Service: April 24, 2024
Objective Data
-
Labs:
Laboratory Results
04/23/24 04/24/24 04/24/24
20:24 03:25 10:10
WBC 9.5
Hgb 10.6 L
Hct 30.8 L
Plt Count 230
PT 14.0
INR 1.08
APTT 39.3 H 55.8 H Pending
Sodium 143
Potassium 4.7
Chloride 107
Carbon Dioxide 20 L
BUN 37 H
Creatinine 0.9
Glucose 91
Calcium 9.7
Total Bilirubin 0.2
AST 22
ALT 18
Alkaline Phosphatase 67
Vital Signs:
Vital Signs
Temp Pulse Resp BP Pulse Ox
98.0 F 50 18 133/64 97
04/24/24 06:52 04/24/24 03:30 04/24/24 06:52 04/24/24 03:38 04/24/24 06:52
I&O
04/23/24 04/24/24 04/25/24
06:59 06:59 06:59
Intake Total 47 / 47
Balance 47 / 47
Review of Systems
-
History Source: Patient
All other systems: Reviewed and negative
Physical Exam
-
General: No Apparent Distress
HEENT: Normocephalic, Atraumatic and Moist Mucous Membranes
Cardiac: Regular Rhythm and S1/S2; Negative Murmur
GI: Soft, Nontender and Nondistended
Musculoskeletal: No Clubbing, No Cyanosis and No Edema
Skin: Warm
Neuro: Awake, Alert, Oriented and AO x 3
Psych: Calm
--- NOTE | 2024-04-24 08:00 | PTCARENOTE ---
pt received from previous RN, oriented, denies CP or SOB. SB on the monitor, HR 50s. RA. NPO for CCL. PIV x2. heparin and nitro gtts running as ordered. see worklist for VS, I&O, and assessment.
[2024-04-24] MEDS: IMDUR (EXTENDED RELEASE) 60 MG PO (09:23)
[2024-04-24] MEDS: MYSOLINE 150 MG PO (09:23)
[2024-04-24] MEDS: TRICOR 145 MG PO (09:23)
[2024-04-24] MEDS: TOPROL XL 25 MG PO (09:24)
[2024-04-24] MEDS: CRESTOR 20 MG PO (09:24)
[2024-04-24] MEDS: NORVASC 5 MG PO (09:24)
[2024-04-24] MEDS: PLAVIX 75 MG PO (09:24)
--- NOTE | 2024-04-24 10:13 | W.PN.CARDCBS ---
Addendum entered and electronically signed by Lacy Holliday DO 04/24/24 11:12:
I saw and examined the patient.
The Avionics Systems Repairer's note was reviewed and I agree with the note.
Comment: Patient seen and examined this morning. Overnight had episodes of chest pain however currently chest pain-free. Plan discussed with interventional cardiology; left heart catheterization later today
General: NAD, RA. AAOx3
HEENT: mmm
Respiratory: Clear and Non Labored Respirations
Cardiac: S1/S2 and Regular Rhythm, no murmur
GI: Soft, Non Tender, Non Distended and Normal Bowel Sounds
Musculoskeletal: No edema
Plan:
Presents with exertional chest pain concerning for angina with known significant coronary artery disease with ongoing intermittent episodes of chest pain relieved with nitroglycerin
-Serially undetectable troponin
-Currently on IV heparin drip and IV nitroglycerin drip
-Plan for left heart catheterization today with Dr. Hodge
-continue toprol, imdur. add norvasc 5mg daily.
-continue asa, plavix.
-proBNP 812
-Lipid profile 04/24/2024 on Repatha and rosuvastatin 20 mg daily: Triglycerides 183, total cholesterol 93, LDL -3, VLDL 36. HDL 60. Will stop rosuvastatin and recheck lipid profile in 3 months
-TSH 3.63.
Original Note:
Today's Communication / Plan
-
[facility] today
Impression / Plan
-
PCP: Annamaria Bourne MD
CDY: Lacy Holliday MD
Impression:
Presentation with CP, concern for angina
Negative trops x4
Recent admission for chest pain, PCI and elevated Troponin 03/02/24 until 03/03/24
USA with abnormal PET stress test 02/25/24
CAD
s/p CABG with REYES to LAD, SVG to OM-1 (1st branch), SVG seq to OM-1 (2nd branch) and then OM-2 2006
s/p cath with patent REYES to LAD, SVG to OM-1 (1st branch) patent and then occluded after the side of vein to side of artery anastomosis, SVG seq to OM-1 (2nd branch) and OM-2 was patent at [facility] 10/06/10
NSTEMI s/p 4.0 mm Xience stenting of the ostial SVG-OM1-OM 1 daughter-OM 2 03/02/24
cRBBB
HTN
Hyperlipidemia
h/o breast cancer
Hypothyroidism
Former smoker
PET stress test 02/25/24: Perfusion imaging reveals a small mild fixed apical defect consistent with prior infarction, small mild reversible anterolateral defect consistent with ischemia, EF 60% at rest and after administration of stress agent,
ventricle is normal in size
Echo 03/03/24: EF 55-60%, no WMA, normal RV size and function
Plan:
-Presented with recurrent chest pain, relieved w/ nitro, concerning for unstable angina.
-Troponin undetectable x4. Continued with pain throughout the day 04/23 and started on nitro gtt. Did have some recurrent pain in PM.
-Continue IV heparin.
-She has been compliant w/ aspirin 81mg daily and plavix 75mg daily as OP.
-With recurrent chest pain concerning for unstable angina, plan is for repeat [facility] today, 04/24. Await results.
-[facility].
-Further recommendations to be made pending results of cath.
PREADMIT DATA:
-Patient came to [facility] last night with ongoing chest pain and was admitted with HTN urgency, cardiology is now consulted. Patient was seen by Mg in the office 01/31/24 and complained of chest pain which prompted a PET stress test on 02/25/24.
PET stress test was abnormal leading to plans for outpatient cardiac cath, but patient started with USA on 03/02/24 and came to [facility]. Troponin initially undetectable, but given abnormal PET and USA patient was taken for cath same day. Cath showed a
new SVG to OM1-OM1 lesion that was stented. Post-cath Troponin peaked at 1.07. Echo was stable with preserved EF and no WMA. Patient was discharged to home on her usual doses of Imdur ER 30 mg daily, lisinopril 5 mg daily and Toprol XL 50 mg daily,
but her dose of Lasix was increased to 20 mg BID. Of note patient has been told to increase her dose of Imdur ER to 60 mg daily in the couple of days leading up to her admission while she was awaiting an outpatient cath, but following PCI the
patient's regular dose of Imdur ER 30 mg daily was resumed at discharge. Patient says that the higher dose of Lasix 20 mg BID caused leg cramps and so she could not take it. Otherwise she was taking her usual meds. She was not following BP at home,
but felt that she had increasing exercise intolerance within 2 days of discharge and then resting chest discomfort. Patient [facility] last night with ongoing chest pressure. Troponins have been serially undetectable. She was markedly HTN in the
ER and with ongoing chest pain she was started on Nitro gtt that is currently running at 95 mcg/min. She has been pain free since then, but has a WHITNEY.
Progress Note - Exchange Operator
Subjective
Date of Service: April 24, 2024
Did have some recurrent pain last night.
Objective
Labs:
04/24/24 03:25
04/24/24 03:25
Labs
Hgb 10.6 g/dL (12.0-16.0) L 04/24/24 03:25
Hct 30.8 % (37.0-47.0) L 04/24/24 03:25
Plt Count 230 10^3/uL (130-400) 04/24/24 03:25
PT 14.0 Sec (11.4-14.6) 04/23/24 20:24
INR 1.08 04/23/24 20:24
APTT 55.8 Sec (23.4-35.0) H 04/24/24 03:25
Sodium 143 mmol/L (135-145) 04/24/24 03:25
Potassium 4.7 mmol/L (3.5-5.1) 04/24/24 03:25
BUN 37 mg/dl (7-17) H 04/24/24 03:25
Creatinine 0.9 mg/dL (0.6-1.0) 04/24/24 03:25
Glucose 91 mg/dl (70-99) 04/24/24 03:25
Troponins
04/23/24 04/23/24 04/23/24
09:51 12:29 16:04
Troponin I < 0.012 < 0.012 Cancelled
04/23/24 04/24/24
20:24 03:25
Troponin I < 0.012 < 0.012
Vital Signs and I&O:
Vital Signs
Temp Pulse Resp BP Pulse Ox
98.0 F 54 18 124/71 97
04/24/24 06:52 04/24/24 09:00 04/24/24 06:52 04/24/24 09:24 04/24/24 06:52
Vital Signs
Temp Pulse Resp BP Pulse Ox
98.0 F 54 18 124/71 97
04/24/24 06:52 04/24/24 09:00 04/24/24 06:52 04/24/24 09:24 04/24/24 06:52
Intake & Output
04/22/24 04/23/24 04/24/24 04/25/24
06:59 06:59 06:59 06:59
Intake Total
Balance 47 47
Physical Exam
Physical Exam
GEN: No distress, awake, alert, oriented x3
HEENT: supple, anicteric, mmm, eomi
LUNGS: CTA B/L, no wheezes/rales
CV: Reg, S1/S2, no murmur
EXT: No cyanosis, clubbing, edema
NEURO: Gross non-focal
SKIN: Warm, pink, dry. No rash
[2024-04-24] MEDS: MAGNESIUM OXIDE 500 MG PO ×2 (10:16→19:34)
--- NOTE | 2024-04-24 10:27 | CM ---
Reviewed chart. Met with and Mrs. Baldwin to review discharge plans. She states prior to admission she resides with her spouse in a two story home with three steps to enter. She states she has a full flight of steps to get to bedroom/full
bathroom. She states she has a powder room on the first floor. She states prior to admission she was independent with ambulation and adls. She states she does not have any DME in the home. She states she has a prescription plan and uses [facility]. She states she only had [facility] after her open heart surgery. She states she has never been to a SNF. Medical work-up in progress. The discharge plan is to return home with her spouse when medically stable.
[2024-04-24 10:41] LABS: APTT 69.1 Sec (23.4-35.0)
[2024-04-24] MEDS: HEPARIN 25000 UNITS/250 ML IV (10:52)
[2024-04-24] MEDS: NSS 1000 IV (17:45)
--- NOTE | 2024-04-24 17:53 | ITS.CL.CATH ---
Manager Performance Improvement - Catheterization
Cardiac Catheterization
Procedure Report:
LEFT HEART CATHETERIZATION
Date of Procedure: April 24, 2024
Referring: Dr. Lacy Holliday
PROCEDURES:
1. Left heart catheterization with coronary and single-plane left ventriculography
2. Selective saphenous vein graft and TONI angiography
INDICATION: This is a 73-year-old female with a prior history of coronary artery disease and bypass surgery in 2006 at [facility] by Dr. King. Bypass grafts include REYES-LAD and sequential SVG-OM1-OM1 daughter branch beyond bifurcation
- OM2. She was admitted to [facility] in early March 2024 with chest discomfort and ruled in for a small non-ST segment elevation myocardial infarction with a peak troponin of 0.133 ng/mL. She was referred for coronary angiography and
found to have a 70% ostial stenosis and 60-70% proximal stenosis in the degenerative vein graft to OM1, OM 1 daughter, and OM 2. The ostium and proximal portion of the graft was stented with a 4.0 x 38 mm Xience stent that was implanted at nominal
pressures with a nice angiographic result. She did well for approximately 6 weeks but called our office to report resting chest discomfort and was then seen in the emergency department several days later with resting chest pain that would come and
go at random intervals. She was admitted and placed on IV nitroglycerin and heparin. Her troponin serially measured undetectable. She is now referred for coronary angiography.
ACCESS: Right common femoral artery, 6 [place] sheath
HEMODYNAMICS : (mmHg)
AO (s/d) : 177/77
LV (s/d) : 178/17
LVEDP : 23
CORONARY ANGIOGRAPHY
Dominance: Right
LEFT MAIN: Heavily calcified Short left main
LEFT ANTERIOR DESCENDING: The LAD is heavily calcified with 70% stenosis at its origin and the vessel becomes 100% occluded with the distal LAD noted to fill via a widely patent TONI graft. There is antegrade and retrograde filling of the [place] LAD
proximal and distal to the TONI touchdown. The LAD is noted to be 100% occluded beyond the TONI touchdown and supplies a small terminal diagonal branch which has a 80-90% stenosis at its origin and was reported on the prior catheterization from
[facility] from 2010. Retrograde filling of the LAD supplies to medium caliber diagonal branches.
CIRCUMFLEX: 100% occluded in its midportion with diffuse proximal disease
RIGHT CORONARY ARTERY: The right coronary artery is heavily calcified with a 50% proximal and 80% stenosis before the crux and the vessel. The PDA is occluded. These findings were also noted on the prior angiogram from [facility] from 2010
per report
GRAFT ANGIOGRAPHY:
1. SVG-OM1-OM1 daughter branch-OM 2: The stent at the origin of the graft was cannulated with an AR mod diagnostic catheter. The stented segment is widely patent with good runoff to the distal obtuse marginal branches.
2. REYES-LAD: The REYES graft to the mid LAD is widely patent. The LAD fills retrograde to supply to medium caliber diagonal branches. The LAD beyond the TONI touchdown becomes occluded distally with a small terminal diagonal branch noted to fill.
This diagonal branch has a high-grade stenosis at its origin but is angiographically stable from at least March 2024 if not earlier
LEFT VENTRICULOGRAPHY: Left ventriculography is performed in DUQUE projection. The digital single-plane left ventricular ejection fraction is estimated at 55%. There is inferoapical hypokinesis noted
RADIATION SUMMARY: Fluoro Time (min): 5.9, Dose (mGy): 599, DAP (Gy.cm2) : 51.3
Closure Device: None
CONCLUSION
1. Stable coronary anatomy
RECOMMENDATIONS
1. Continued medical therapy. Will increase isosorbide mononitrate from 60 mg daily to 90 mg daily. She was also just started on amlodipine 5 mg daily.
2. Will follow-up with Dr. Holliday in the office for further titration of antianginals if necessary
Copy to: Dr. Lacy Holliday
[2024-04-24] MEDS: ZESTRIL 20 MG PO (18:08)
--- NOTE | 2024-04-24 18:12 | PTCARENOTE ---
Pt received post cath with right femoral sheath intact. Sheath pulled by company laborer staff at 1735. Right groin site dressing dry and intact at this time. Pt with no c/o.
--- NOTE | 2024-04-24 21:12 | PTCARENOTE ---
Pt rec'd at change of shift on CBR. Right femoral site with DDI no active bleeding or hematoma present. Pt denies discomfort. Assisted oob at 2100. Voided large amt of urine. back to be at present. Groin unchanged after ambulation. ivf completed.
call garcia within reach.
[2024-04-24] MEDS: ASPIR LOW (ENTERIC COATED) 81 MG PO (22:14)
[2024-04-24] MEDS: SYNTHROID 88 MCG PO (22:15)
[2024-04-24] MEDS: VITAMIN B-12 500 MCG PO (22:15)
[2024-04-24] MEDS: MYSOLINE 200 MG PO (22:15)
[2024-04-25 03:58] VITALS: BP 128/62
[2024-04-25 05:07] LABS: Hematocrit 32.9 % (37.0-47.0); Hemoglobin 11.2 g/dL (12.0-16.0); Mean Corpuscular Hgb 31.7 pg (27.0-31.0); Mean Corpuscular Volume 93.2 fL (81.0-99.0); Mean Platelet Volume 11.1 fL (7.4-10.4); Platelet Count 230 10^3/uL (130-400); Red Blood Cell Count 3.53 10^6/uL (4.20-5.40); Red Cell Dist. Width 13.8 % (11.5-14.5); White Blood Cell Count 7.6 10^3/uL (4.8-10.8)
[2024-04-25 05:30] LABS: Blood Urea Nitrogen 41 mg/dl (7-17); Calcium 9.4 mg/dl (8.4-10.2); Carbon Dioxide 24 mmol/L (22-30); Chloride 107 mmol/L (98-107); Estimated Creatinine Clearance 63 ml/min; Glucose 100 mg/dl (70-99); Potassium 4.7 mmol/L (3.5-5.1); Sodium 141 mmol/L (135-145); eGFR > 60.00
[2024-04-25 06:44] VITALS: BP 137/59
[2024-04-25] MEDS: NORVASC 5 MG PO (08:27)
[2024-04-25] MEDS: TRICOR 145 MG PO (08:27)
[2024-04-25] MEDS: IMDUR (EXTENDED RELEASE) 60 MG PO (08:27)
[2024-04-25] MEDS: TOPROL XL 25 MG PO (08:27)
[2024-04-25] MEDS: PLAVIX 75 MG PO (08:27)
[2024-04-25] MEDS: LASIX 20 MG PO (08:28)
[2024-04-25] MEDS: MYSOLINE 150 MG PO (08:28)
[2024-04-25 08:29] VITALS: BP 139/70
--- NOTE | 2024-04-25 09:33 | W.PN.CARDCBS ---
Addendum entered and electronically signed by Lacy Holliday DO 04/25/24 09:50:
I saw and examined the patient.
The Assembly Cleaner's note was reviewed and I agree with the note.
Comment: Patient seen and examined this morning ambulating around room. No further chest pain or pressure. Cardiac catheterization results reviewed with her as well as current plan. She is quite emotional and I have recommended that she establish
care with a mental health care provider/therapist.
General: NAD, RA. AAOx3
HEENT: mmm
Respiratory: Clear and Non Labored Respirations
Cardiac: S1/S2 and Regular Rhythm, no murmur
GI: Soft, Non Tender, Non Distended and Normal Bowel Sounds
Musculoskeletal: No edema; right groin site intact.
Plan:
-Known significant coronary artery disease with history of CABG and recent PCI 03/02/2024 to an ostial SVG to OM1 who presents with recurrent chest pain
-Troponin undetectable x4.
-Left heart catheterization yesterday with stable anatomy with no need for further revascularization
-We discussed potential causes including microvascular disease
-Increase Imdur to 90 mg daily, new amlodipine 5 mg daily which can be uptitrated if needed. Can also consider use of Ranexa down the road pending response to current medical therapy
-Continue uninterrupted dual antiplatelet therapy with aspirin/Plavix.
-Continue metoprolol succinate 25 mg daily and lisinopril 20 mg daily.
-Patient is euvolemic on Lasix 20 mg daily
-Consider addition of SGLT2 inhibitor for coronary indication as an outpatient such as [facility]. Will look into cost and discussed with patient and outpatient follow-up. Hemoglobin A1c 03/11/2024 was 5.4%
-Continue aggressive lipid reduction which we have achieved with Repatha/Crestor and fenofibrate. Calculated LDL -3. Check direct LDL. No changes made to medical therapy at this time.
-Patient is emotional with anxiety related to medical diagnosis and I have discussed a referral to a cardiac therapist. Number provided on discharge summary.
-Right groin site okay with no significant hematoma. We discussed post procedure wound monitoring and activity restrictions. Will hold off return to cardiac rehab for 1 week allowing right groin to heal.
-History of hypothyroidism on replacement therapy with normal TSH 04/24/2024
From a cardiac standpoint may be discharged home with outpatient cardiac follow-up
Original Note:
Today's Communication / Plan
-
Continue Imdur at higher dose 90mg daily
Continue amlodipine 5mg daily which is new this admission
Continue Toprol 25mg daily
Continue aspirin and plavix
Check Direct LDL
Impression / Plan
-
PCP: Annamaria Bourne MD
CDY: Lacy Holliday MD
Impression:
Presentation with CP, concern for angina
Negative trops x4
Recent admission for chest pain, PCI and elevated Troponin 03/02/24 until 03/03/24
USA with abnormal PET stress test 02/25/24
CAD
s/p CABG with REYES to LAD, SVG to OM-1 (1st branch), SVG seq to OM-1 (2nd branch) and then OM-2 2007
s/p cath with patent REYES to LAD, SVG to OM-1 (1st branch) patent and then occluded after the side of vein to side of artery anastomosis, SVG seq to OM-1 (2nd branch) and [facility]
NSTEMI s/p 4.0 mm Xience stenting of the ostial SVG-OM1-OM 1 daughter-OM 2 03/02/24
cRBBB
HTN
Hyperlipidemia
h/o breast cancer
Hypothyroidism
Former smoker
PET stress test 02/25/24: Perfusion imaging reveals a small mild fixed apical defect consistent with prior infarction, small mild reversible anterolateral defect consistent with ischemia, EF 60% at rest and after administration of stress agent,
ventricle is normal in size
Echo 03/03/24: EF 55-60%, no WMA, normal RV size and function
Plan:
-Presented with recurrent chest pain, relieved w/ nitro, concerning for unstable angina.
-Troponin undetectable x4. Continued with pain throughout the day 04/23 and started on nitro gtt.
-Underwent repeat cardiac catheterization 04/25 which showed stable coronary disease. Plan is to continue medical management.
-Continues on Toprol 25mg daily. Imdur increased to 90mg daily after cath. New to amlodipine 5mg daily this admission.
-BP stable, also on lisinopril 20mg daily.
-Continue aspirin 81mg daily and Plavix 75mg daily.
-Continue Repatha and Crestor. Calculated LDL -3, will check direct LDL.
-Follow up arranged.
PREADMIT DATA: Patient came to [facility] last night with ongoing chest pain and was admitted with HTN urgency, cardiology is now consulted. Patient was seen by Mg in the office 01/31/24 and complained of chest pain which prompted a PET stress test
on 02/25/24. PET stress test was abnormal leading to plans for outpatient cardiac cath, but patient started with USA on 03/02/24 and came to [facility]. Troponin initially undetectable, but given abnormal PET and USA patient was taken for cath same day. Cath
showed a new SVG to OM1-OM1 lesion that was stented. Post-cath Troponin peaked at 1.07. Echo was stable with preserved EF and no WMA. Patient was discharged to home on her usual doses of Imdur ER 30 mg daily, lisinopril 5 mg daily and Toprol XL 50
mg daily, but her dose of Lasix was increased to 20 mg BID. Of note patient has been told to increase her dose of Imdur ER to 60 mg daily in the couple of days leading up to her admission while she was awaiting an outpatient cath, but following PCI
the patient's regular dose of Imdur ER 30 mg daily was resumed at discharge. Patient says that the higher dose of Lasix 20 mg BID caused leg cramps and so she could not take it. Otherwise she was taking her usual meds. She was not following BP at
home, but felt that she had increasing exercise intolerance within 2 days of discharge and then resting chest discomfort. Patient came to [facility] last night with ongoing chest pressure. Troponins have been serially undetectable. She was markedly HTN in
the ER and with ongoing chest pain she was started on Nitro gtt that is currently running at 95 mcg/min. She has been pain free since then, but has a WHITNEY.
Progress Note - Brake Repair Supervisor
Subjective
Date of Service: April 25, 2024
Emotional, but no further chest pain.
Objective
Labs:
04/25/24 04:06
04/25/24 04:06
Labs
Hgb 11.2 g/dL (12.0-16.0) L 04/25/24 04:06
Hct 32.9 % (37.0-47.0) L 04/25/24 04:06
Plt Count 230 10^3/uL (130-400) 04/25/24 04:06
PT 14.0 Sec (11.4-14.6) 04/23/24 20:24
INR 1.08 04/23/24 20:24
APTT Cancelled 04/24/24 17:00
Sodium 141 mmol/L (135-145) 04/25/24 04:06
Potassium 4.7 mmol/L (3.5-5.1) 04/25/24 04:06
BUN 41 mg/dl (7-17) H 04/25/24 04:06
Creatinine 0.9 mg/dL (0.6-1.0) 04/25/24 04:06
Glucose 100 mg/dl (70-99) H 04/25/24 04:06
Troponins
04/23/24 04/23/24 04/23/24
09:51 12:29 16:04
Troponin I < 0.012 < 0.012 Cancelled
04/23/24 04/24/24
20:24 03:25
Troponin I < 0.012 < 0.012
Vital Signs and I&O:
Vital Signs
Temp Pulse Resp BP Pulse Ox
98.3 F 62 16 139/70 97
04/25/24 06:40 04/25/24 08:29 04/25/24 06:40 04/25/24 08:29 04/25/24 06:40
Vital Signs
Temp Pulse Resp BP Pulse Ox
98.3 F 62 16 139/70 97
04/25/24 06:40 04/25/24 08:29 04/25/24 06:40 04/25/24 08:29 04/25/24 06:40
Intake & Output
04/23/24 04/24/24 04/25/24 04/26/24
06:59 06:59 06:59 06:59
Intake Total 47 / 47 511.5 / 511.5
Balance 47 / 47 511.5 / 511.5
Physical Exam
Physical Exam
GEN: No distress, awake, alert, oriented x3
HEENT: supple, anicteric, mmm, eomi
LUNGS: CTA B/L, no wheezes/rales
CV: Reg, S1/S2, no murmur
EXT: No cyanosis, clubbing, edema
NEURO: Gross non-focal
SKIN: Warm, pink, dry. No rash
[2024-04-25 10:49] LABS: LDL Cholesterol, Direct < 30 mg/dl
[2024-04-25 12:29] VITALS: BP 130/76
--- NOTE | 2024-04-25 12:31 | W.PN.HOSP.TC ---
Today's Communication/Plan
-
DC
Assessment / Plan
Assessment / Plan
73yo F with PMHx of HTN, HLD, hypothyroidism, L breast CA s/p RT and lumpectomy, R knee arthrplasty, CAD s/p NSTEMI and cardiac cath s/p PCI on 03/02/24 with subsequent andmssion for chest pain 2 days later, now came with serial episodes of cardiac
burning chest pain. Had cardiac cath on 04/24/24 without stenting. Cardiology advised to cont GDMT, increased Imdur. Patient remained chest pain free. Cardiology advised discharge and further outpatient mgmt. Medically stable for d/c
A/P:
#UA
#CAD s/p PCI
#RBBB
EKG without ST elevation, SR
Cardiology consult
ASA, Plavix, Statin, BB to continue
O2 as needed
Morphine as needed
Nitro drip
Admit to IMU
Serial trop remais neg
TSH WNL, mildly elevated triglycerides
#Mild acute on chronic HFpEF
hold lasix in view of potential cath as per cardio
Follow weights and electrolytes
#Hypothyroidism
#Essential HTN
#Essential tremor
cont home meds
#Morbid obesity with BMI 41.9
Advise to decrease calorie intake
#Chronic mild anemia
follow up with PCP for the further w/u
#Benign type calcifications in L breast
patient already followed by her doctor and had recent mammo
DVT ppx on hep drip
Full code
I have spent at lest 38min reviewing chart, test results, communication with consultants and direct patient care
Anticipated Discharge: Today
Subjective/Interval History
-
Date of Service: April 25, 2024
Objective Data
-
Labs:
Laboratory Results
04/25/24
04:06
WBC 7.6
Hgb 11.2 L
Hct 32.9 L
Plt Count 230
Sodium 141
Potassium 4.7
Chloride 107
Carbon Dioxide 24
BUN 41 H
Creatinine 0.9
Glucose 100 H
Calcium 9.4
Vital Signs:
Vital Signs
Temp Pulse Resp BP Pulse Ox
98.3 F 73 16 139/70 97
04/25/24 06:40 04/25/24 12:00 04/25/24 06:40 04/25/24 08:29 04/25/24 06:40
I&O
04/24/24 04/25/24 04/26/24
06:59 06:59 06:59
Intake Total 47 / 47 511.5 / 511.5
Balance 47 / 47 511.5 / 511.5
Review of Systems
-
History Source: Patient
All other systems: Reviewed and negative
Physical Exam
-
HEENT: Normocephalic and Atraumatic
Respiratory: Clear to Auscultation
Cardiac: Regular Rhythm
GI: Soft, Nontender and Nondistended
--- NOTE | 2024-04-25 12:34 | W.DCSUMMARY ---
Discharge Summary
Discharge Data
Date of Admission: 04/23/24
Date of Discharge: 04/25/24
-
Pending Results: No
Hospital Course
73yo F with PMHx of HTN, HLD, hypothyroidism, L breast CA s/p RT and lumpectomy, R knee arthrplasty, CAD s/p NSTEMI and cardiac cath s/p PCI on 03/02/24 with subsequent andmssion for chest pain 2 days later, now came with serial episodes of cardiac
burning chest pain. Had cardiac cath on 04/24/24 without stenting. Cardiology advised to cont GDMT, increased Imdur. Patient remained chest pain free. Cardiology advised discharge and further outpatient mgmt. Medically stable for d/c. I have spent at
least 36min preparing d/c
A/P:
#UA
#CAD s/p PCI
#RBBB
#Mild acute on chronic HFpEF
#Hypothyroidism
#Essential HTN
#Essential tremor
#Morbid obesity with BMI 41.9
#Chronic mild anemia
#Benign type calcifications in L breast
Discharge Plan
-
Patient Disposition: Home (Routine Discharge)
Discharge Diagnosis/Procedures: Cardiac cath
Diet: Low Cholesterol
Additional Activity: Hold off on participating in cardiac rehab for 1 week.
Driving Restrictions: No driving for 24 hours
Stand Alone Forms: DC Instructions- Cath/EP Lab
Referrals:
Maritza Esteves CRNP [Specified Professional Personl] - 05/28/24 10:00 am (You have a follow up visit with Dr. Holliday's WARPING MILL OPERATOR, Maritza Esteves, at the [facility]. Please call with questions. )
Annamaria Bourne MD [Family Provider] -
Additional Discharge Medication Instructions: Dr. Víctor Headley (Cardiac Psychologist) - [phone]
Prescriptions:
New
isosorbide mononitrate 30 mg Tablet Extended Release 24 Hr
90 mg PO DAILY Qty: 30 0RF
amlodipine 5 mg Tablet
5 mg PO DAILY Qty: 30 0RF
nitroglycerin 0.4 mg Tablet, Sublingual
0.4 mg sublingual [id number] PRN (Reason: chest pain) Qty: 30 0RF
metoprolol succinate 25 mg Tablet Extended Release 24 Hr
25 mg PO DAILY Qty: 30 0RF
Continued
primidone 50 mg Tablet
150 mg PO DAILY
primidone 50 mg Tablet
200 mg PO HS
clopidogrel 75 mg Tablet
75 mg PO DAILY
aspirin 81 mg Tablet,Delayed Release (Dr/Ec)
81 mg PO HS
levothyroxine 88 mcg Tablet
88 mcg PO HS
cyanocobalamin (vitamin B-12) 500 mcg Tablet
500 mcg PO HS
ascorbic acid (vitamin C) [Vitamin C] 500 mg Tablet
500 mg PO HS
zinc 50 mg Tablet
50 mg PO HS
fenofibrate 160 mg tablet
160 mg PO DAILY
cholecalciferol (vitamin D3) [Vitamin D3] 25 mcg (1,000 unit) Tablet
12.5 mcg PO DAILY Qty: 0
Repatha SureClick 140 mg/mL Pen Injector
140 mg SC Q2W
rosuvastatin 20 mg Tablet
20 mg PO HS
furosemide 20 mg tablet
20 mg PO DAILY
lisinopril 20 mg tablet
20 mg PO QPM
Discontinued
metoprolol succinate 50 mg Tablet Extended Release 24 Hr
50 mg PO DAILY
isosorbide mononitrate 30 mg Tablet Extended Release 24 Hr
60 mg PO DAILY
Discharge Orders:
Discharge Patient (As Directed); Ordered 04/25/24
Ordered By: Mark Ridley
Care Plan Goals
Care Plan Goals:
Problem: Readiness for enhanced knowledge related to diagnosis and treatment plan
Goal: Understand your diagnosis and treatment plan needs, including medications if applicable.
Instructions: Know your diagnosis, underlying causes and treatment plan options, including medications if applicable. Consult with your health care team to learn about your diagnosis and treatment plan, including medications if applicable.
Discharge Date and Time
Print Language: BELARUSIAN
--- NOTE | 2024-04-25 13:08 | PTCARENOTE ---
Rec'd pt at 0700. Pt OOB in chair, ambulates in room. Monitor SBR/SR. Lungs CTA. Right groin dressing C/D/I. Discharge orders received, instructions and new medications reviewed with pt and . IV and tele monitor removed. Pt discharged to home.
== END 2024-04-25 13:15 | disposition home or self-care (01) | DRG 286 ==
LOC: IVU 14:20
PROVIDERS: Internal Medicine Interventional Cardiology; ADMITTING PHYSICIAN Internal Medicine; CONSULT PHYSICIAN Internal Medicine Cardiovascular Disease; EMERGENCY PHYSICIAN Emergency Medicine; FAMILY PHYSICIAN Family Medicine
PROC: B2111ZZ Fluoroscopy of Multiple Coronary Arteries using Low Osmolar Contrast (ICD-10-PCS; 2024-04-24)
PROC: 4A023N7 Measurement of Cardiac Sampling and Pressure, Left Heart, Percutaneous Approach (ICD-10-PCS; 2024-04-24)
PROC: B2151ZZ Fluoroscopy of Left Heart using Low Osmolar Contrast (ICD-10-PCS; 2024-04-24)
DX: I11.0 Hypertensive heart disease with heart failure (principal); I50.33 Acute on chronic diastolic (congestive) heart failure; Z68.41 Body mass index [BMI] 40.0-44.9, adult; Z87.891 Personal history of nicotine dependence; I25.10 Atherosclerotic heart disease of native coronary artery without angina pectoris; E03.9 Hypothyroidism, unspecified; E66.01 Morbid (severe) obesity due to excess calories; G25.0 Essential tremor; D64.9 Anemia, unspecified
CPT/HCPCS: 71046; 80048; 80053; 80061; 83721; 83735; 83880; 84443; 84484; 85025; 85027; 85347; 85610; 85730; 86803; 93005; 93459; 96365; 96366; 96367; 99285; C1894; Q9967

== ENCOUNTER 2024-05-14 10:40 | Outpatient (RCR) | payer OTHER, SELFPAY | END 2024-05-14 23:59 | disposition home or self-care (01) | LOC: CRHB 10:40 | PROVIDERS: ATTENDING PHYSICIAN Internal Medicine Cardiovascular Disease | DX: I25.10 Atherosclerotic heart disease of native coronary artery without angina pectoris (principal); Z95.5 Presence of coronary angioplasty implant and graft | CPT/HCPCS: G0422; G0423 ==

== ENCOUNTER → 2024-08-05 10:34 | Outpatient (REF) | payer OTHER, SELFPAY | LOC: HWRAD 10:34 | PROVIDERS: ATTENDING PHYSICIAN Family Medicine | DX: M54.42 Lumbago with sciatica, left side (principal) | CPT/HCPCS: 72110 ==

== ENCOUNTER → 2024-08-27 15:23 | Outpatient (REF) | payer OTHER, SELFPAY | LOC: HWRAD 15:23 | PROVIDERS: ATTENDING PHYSICIAN Psychiatry & Neurology Neurology; FAMILY PHYSICIAN Family Medicine | DX: M79.18 Myalgia, other site (principal); M25.552 Pain in left hip | CPT/HCPCS: 73502 ==

== ENCOUNTER 2024-12-14 08:10 | Inpatient (IN) | payer OTHER, SELFPAY ==
[2024-12-12 18:51] VITALS: BP 128/94
[2024-12-12] MEDS: DILAUDID 0.5 MG IV ×2 (19:40→21:07)
[2024-12-12 19:43] VITALS: BP 147/72
[2024-12-12 19:44] VITALS: BMI 41.8
[2024-12-12 19:44] LABS: Mean Corp Hgb Conc. 34.3 g/dL (33.0-37.0); Mean Corpuscular Hgb 31.2 pg (27.0-31.0); Mean Corpuscular Volume 90.9 fL (81.0-99.0); Mean Platelet Volume 10.4 fL (7.4-10.4); Platelet Count 260 10^3/uL (130-400); Red Blood Cell Count 3.85 10^6/uL (4.20-5.40); Red Cell Dist. Width 13.2 % (11.5-14.5); White Blood Cell Count 11.2 10^3/uL (4.8-10.8)
[2024-12-12 20:00] VITALS: BP 128/50
[2024-12-12 20:03] LABS: ALT (SGPT) 23 U/L (0-35); AST (SGOT) 28 U/L (14-36); Alkaline Phosphatase 75 U/L (38-126); Blood Urea Nitrogen 40 mg/dl (7-17); Calcium 10.1 mg/dl (8.4-10.2); Carbon Dioxide 24 mmol/L (22-30); Chloride 104 mmol/L (98-107); Estimated Creatinine Clearance 57 ml/min; Glucose 100 mg/dl (70-99); Potassium 4.7 mmol/L (3.5-5.1); Sodium 139 mmol/L (135-145); Total Bilirubin 0.5 mg/dl (0.2-1.3); Total Protein 7.9 g/dl (6.3-8.2); eGFR 58.75
[2024-12-12 21:35] LABS: Magnesium 1.5 mg/dl (1.6-2.3)
--- NOTE | 2024-12-12 22:20 | ED.GENMED ---
History of Present Illness
General
Chief Complaint: Musculo-Skeletal Complaint
Time Seen by Provider: 12/12/24 19:00
History of Present Illness
History of Present Illness:
74-year-old female with history of CAD status post recent CA currently on Plavix presents to the emergency department for evaluation of right hip pain. She lost her balance and fell onto her right buttock and hip and has been unable to bear weight
on the right hip since. Denies any head strike or loss of consciousness.
Past History
Past History
ED Past Medical History: CAD, Cancer (Breast cancer), HTN, Hypercholesterolemia and CA
ED Past Surgical History: Cardiac (CABG), Cholecystectomy, Orthopedic (Ankle) and Other (Left breast lumpectomy)
Social History
Tobacco: Former smoker
Alcohol: None
Personal:
Living: with family
Employment: Retired
Family History
Family History: CAD and Other
Review of Systems
Review of Systems
Allergies reviewed?: Yes
All Other Systems: ROS reviewed and negative except as documented in HPI and ROS
Phy Exam
Physical Exam
Physical Exam:
GEN: Well appearing, NAD, WDWN
HEENT: Oral mucosa moist, no scleral icterus
Cardiac: Regular rate
Lung: No respiratory distress, no tachypnea
MSK: No gross deformity or injuries. No shortening or external rotation of the right lower extremity. There is palpable induration to the right lateral gluteal tissues compatible with contusion/hematoma.
Skin: Good color, no pallor or jaundice, no rashes
Neuro: AO x3, moves all extremities freely
Psych: Calm, cooperative
Course
Orders/Labs/Results
Orders:
Orders
12/12/24 19:30
HYDROmorphone [Dilaudid] 0.5 mg IV NOW STA
CR Hip - RT w/wo Pel 2-3 Vw* Urgent
Comment:
Reason For Exam: fall hip injury
Include a pelvis x-ray?: Yes
12/12/24 19:37
Complete Blood Count/No Diff Urgent
Comprehensive Metabolic Panel Urgent
Magnesium Urgent
12/12/24 20:53
Add On- LAB Urgent
Tests Added?: magnesium
CT Pelvis W/o Iv Contrast Urgent
Comment:
Reason For Exam: R hip injury negative XR
12/12/24 21:04
HYDROmorphone [Dilaudid] 0.5 mg IV NOW STA
12/12/24 22:51
Magnesium Oxide 500 mg PO NOW STA
12/12/24 23:00
Flush (0.9% Sodium Chloride) [Flush (Nss)] See Dose Instructions IV PER PROTOCOL
12/13/24 06:00
Magnesium IN AM
Abnormal Lab Results
12/12/24
19:37
WBC 11.2 H 10^3/uL
(4.8-10.8)
RBC 3.85 L 10^6/uL
(4.20-5.40)
Hct 35.0 L %
(37.0-47.0)
MCH 31.2 H pg
(27.0-31.0)
BUN 40 H mg/dl
(7-17)
Glucose 100 H mg/dl
(70-99)
Magnesium 1.5 L mg/dl
(1.6-2.3)
12/12/24 19:37
12/12/24 19:37
Vital Signs
Initial and Last Documented VS:
Initial Vital Signs
Temp Pulse Resp BP Pulse Ox
98.4 F 76 20 128/94 99
12/12/24 18:51 12/12/24 18:51 12/12/24 18:51 12/12/24 18:51 12/12/24 18:51
Last Documented Vital Signs
Temp Pulse Resp BP Pulse Ox
98.4 F 78 18 128/50 95
12/12/24 18:51 12/12/24 22:23 12/12/24 22:23 12/12/24 20:00 12/12/24 22:22
MDM/Problems Addressed
MDM/Problems Addressed:
X-ray and follow-up CT showed no evidence for acute fracture however there is a large gluteal intramuscular hematoma that is visualized. Patient was treated with IV opiates for pain she was unable to ambulate steadily and thus is unsafe discharge.
Will admit for pain control and PT considerations
*Critical Care Note
Total Time (30-74mins, 75-104mins- exclusive of procedures): Not Applicable
ED Attending Note
-
Portions of this chart may have been created with voice recognition software.� Occasional wrong word or��sound alike� substitutions may have occurred due to the inherent limitations of voice recognition software.
Discharge Plan
Departure
Patient Disposition: Admit
Date of Disposition: 12/12/24
Time of Disposition: 22:23
Admit to: Med/Surg
Presentation/result/management discussed w/ accepting MD/DO: Hospitalist
Discharge Problem:
Ambulatory dysfunction, Gluteal Hematoma
Prescriptions:
No Action
primidone 50 mg Tablet
150 mg PO DAILY
primidone 50 mg Tablet
200 mg PO HS
clopidogrel 75 mg Tablet
75 mg PO DAILY
aspirin 81 mg Tablet,Delayed Release (Dr/Ec)
81 mg PO HS
levothyroxine 88 mcg Tablet
88 mcg PO HS
cyanocobalamin (vitamin B-12) 500 mcg Tablet
500 mcg PO HS
ascorbic acid (vitamin C) [Vitamin C] 500 mg Tablet
500 mg PO HS
zinc 50 mg Tablet
50 mg PO HS
fenofibrate 160 mg tablet
160 mg PO DAILY
cholecalciferol (vitamin D3) [Vitamin D3] 25 mcg (1,000 unit) Tablet
12.5 mcg PO DAILY Qty: 0
Repatha SureClick 140 mg/mL Pen Injector
140 mg SC Q2W
rosuvastatin 20 mg Tablet
20 mg PO HS
furosemide 20 mg tablet
20 mg PO DAILY
lisinopril 20 mg tablet
20 mg PO QPM
nitroglycerin 0.4 mg Tablet, Sublingual
0.4 mg sublingual [id number] PRN (Reason: chest pain) Qty: 30 0RF
metoprolol succinate 25 mg Tablet Extended Release 24 Hr
25 mg PO DAILY Qty: 30 0RF
isosorbide mononitrate 30 mg tablet extended release 24 hr
60 mg PO DAILY
amlodipine 5 mg tablet
7.5 mg PO DAILY
Referrals:
Annamaria Bourne MD [Family Provider] -
Interventions
Interventions:
*Risk Screen - Suicide Last Done: 12/12/24 18:51
*General Assessment Last Done: 12/12/24 19:30
*Neglect/Abuse Screening Last Done: 12/12/24 18:51
*ED- Fall Risk Assessment Last Done: 12/12/24 19:30
*ED COVID-19 Vaccine History Last Done: 12/12/24 18:51
ED-Musculoskeletal Assessment Last Done: 12/12/24 19:30
Discharge Date and Time
Print Language: KAZAKH
--- NOTE | 2024-12-12 22:31 | HPS.HSE ---
Family Physician
-
Family Physician: Annamaria Bourne
Chief Complaint
-
hematoma
History of Present Illness
74-year-old female with history of CAD status post recent MA currently on Plavix,CHF, tremors, hypothyroidism presents to the emergency department for evaluation of right hip pain. She lost her balance and fell onto her right buttock and hip and
has been unable to bear weight on the right hip since. denied dizzy or lightheaded. denied fever, chills, WHITNEY, dizzy or syncope. denied abdominal pain,n,v,d. denied dysuria or hematuria.
CT with moderate size gluteal hematoma.
admitting for further managment.
Medical History
Past Medical History
Past Medical History: Reports Other
Additional Past Medical History:
Tremor
Hypothyroidism
CAD
Hypertension
Angina pectoris
Hyperlipidemia
Opioid dependence
Parkinson
Breast cancer
Tremors
Past Surgical History: Reports Other
Additional Past Surgical History:
Total abdominal hysterectomy
Cholecystectomy
Left breast lumpectomy
Coronary artery bypass graft
Right ankle fusion
Bilateral cataract surgery
Social History
Tobacco: Former Smoker
Alcohol: None
Drug: None
Personal:
Living: With Family
Family History
Family History: Not pertinent
Allergies / Home Medications
Allergies reflects when Allergies were last updated in [employer].
Home Medications with original date entered in [employer]
Allergy/Medication List:
Allergies
Allergy/AdvReac Type Severity Reaction Status Date / Time
latex [Latex] Allergy Hives Verified 12/12/24 18:55
metronidazole [From Flagyl] Allergy Rash Verified 12/12/24 18:55
propranolol [From Inderal LA] Allergy Unknown Verified 12/12/24 18:55
Sulfa (Sulfonamide Allergy Hives Verified 12/12/24 18:55
Antibiotics)
Home Medications
ascorbic acid (vitamin C) 500 mg tablet (Vitamin C) 500 mg PO HS Supplement 03/02/24
aspirin 81 mg tablet,delayed release 81 mg PO HS Blood Clot Prevention/Tx 03/02/24
cholecalciferol (vitamin D3) 25 mcg (1,000 unit) tablet (Vitamin D3) 12.5 mcg PO DAILY Supplement ##0 03/02/24
clopidogrel 75 mg tablet 75 mg PO DAILY Blood Clot Prevention/Tx 03/02/24
cyanocobalamin (vitamin B-12) 500 mcg tablet 500 mcg PO HS Supplement 03/02/24
evolocumab 140 mg/mL subcutaneous pen injector (Repatha SureClick) 140 mg SC Q2W High Cholesterol 03/02/24
fenofibrate 160 mg tablet 160 mg PO DAILY High Cholesterol 03/02/24
levothyroxine 88 mcg tablet 88 mcg PO HS Thyroid 03/02/24
primidone 50 mg tablet 150 mg PO DAILY Neurological Condition 03/02/24
primidone 50 mg tablet 200 mg PO HS Neurological Condition 03/02/24
rosuvastatin 20 mg tablet 20 mg PO HS High Cholesterol 03/02/24
zinc 50 mg tablet 50 mg PO HS Supplement 03/02/24
furosemide 20 mg tablet 20 mg PO DAILY Fluid Retention/Swelling 03/11/24
lisinopril 20 mg tablet 20 mg PO QPM Blood Pressure 04/23/24
metoprolol succinate 25 mg tablet,extended release 24 hr 25 mg PO DAILY #30 tabs 04/25/24
nitroglycerin 0.4 mg sublingual tablet 0.4 mg sublingual [id number] PRN chest pain #30 tabs 04/25/24
amlodipine 5 mg tablet 7.5 mg PO DAILY 12/12/24
isosorbide mononitrate 30 mg tablet,extended release 24 hr 60 mg PO DAILY 12/12/24
Review of Systems
-
Constitutional: Reports No Symptoms
EENT: Reports No Symptoms
Respiratory: Reports No Symptoms
Cardiac: Reports No Symptoms
Abdomen/GI: Reports No Symptoms
: Reports No Symptoms
Musculoskeletal: Reports No Symptoms
Skin: Reports Other (hematoma)
Neurological: Reports No Symptoms
Endocrine: Reports No Symptoms
Hematologic/Lymphatic: Reports No Symptoms
Psych: Reports No Symptoms
Physical Exam
Vital Signs
Vital Signs
Temp Pulse Resp BP Pulse Ox
98.4 F 78 18 128/50 95
12/12/24 18:51 12/12/24 22:23 12/12/24 22:23 12/12/24 20:00 12/12/24 22:22
Physical Exam
General: Well Developed, Well Nourished and No Apparent Distress
HEENT: NormoCephalic, Moist mucous membranes and Atraumatic
Respiratory: Clear
Cardiac: S1/S2 and Regular Rhythm; No Murmur or Rub
GI: Soft, Non Tender, Non Distended and Normal Bowel Sounds; No Organomegaly
Rectal: Deferred by Provider
Musculoskeletal: No Clubbing, No Cyanosis and No Edema
Skin: Rash and Other (hematoma)
Neuro: AO x 3 and Nonfocal/grossly intact
Psych: Calm
Laboratory Results
-
12/12/24 19:37
12/12/24 19:37
Laboratory Results
Total Bilirubin 0.5 mg/dl (0.2-1.3) 12/12/24 19:37
AST 28 U/L (14-36) 12/12/24 19:37
ALT 23 U/L (0-35) 12/12/24 19:37
Alkaline Phosphatase 75 U/L (38-126) 12/12/24 19:37
Data Reviewed
-
CT Scan: Report Reviewed by me
Lab Data: Labs Reviewed by me
Impression/Plan
-
# Right gluteal hematoma
# Ambulatory dysfunction
- PT/OT consult
- Pelvis CT No findings to suggest recent cortical fracture about the right hip.Asymmetric lateral right gluteal soft tissues limited in evaluation without intravenous contrast, most likely representing a moderate size gluteal hematoma.
- X-ray pending
# Leukocytosis likely stress reaction
- WBC 11.2, patient is afebrile
- Continue to monitor
# Hypomagnesemia
- Mag 1.5
- Supplemented with oral mag
- Magnesium
# chronic HFpEF
-Lasix continued
Follow weights and electrolytes
#CAD s/p PCI
-ASA continued
-hold Plavix
#HLD
-fenofibrate continued
-statin continued
#Hypothyroidism
-levothyroxine
#Essential HTN
-Norvasc,isosorbide,lisinopril ,metoprolol continued
#Essential tremor
-primidone continued
#Morbid obesity
Advise to decrease calorie intake
DVT ppx on scd
Full code
--- NOTE | 2024-12-12 22:47 | W.PN.UPDATE ---
Update Note
Progress Note Update
This note serves as an addendum to the H&P by fire prevention captain LOLA
Cyn TANNER
HPI
73yo F with PMHx of HTN, HLD, hypothyroidism, L breast CA s/p RT and lumpectomy, R knee arthrplasty, CAD s/p NSTEMI and cardiac cath s/p PCI on 03/02/24 on DAPL seen at ER:
- evaluation of right hip pain
- reports lost her balance and fell onto her right buttock and hip
- has been unable to bear weight on the right hip since.
ROS
Denies any head strike or loss of consciousness.
PHX; see above
Reviewed VS:
Vital Signs
Temp Pulse Resp BP Pulse Ox
98.4 F 78 18 128/50 95
12/12/24 18:51 12/12/24 22:23 12/12/24 22:23 12/12/24 20:00 12/12/24 22:22
PE
Gen: NAD
HEENT: atraumatic
Neck: supple
Lungs: CTA
Cor: RRR S1 S2
Abdomen: soft abdomen
BUZZSAW OPERATOR HELPER: AAO3
MS:
No gross deformity or injuries.
No shortening or external rotation of the right lower extremity.
Palpable induration to the right lateral gluteal tissues compatible with contusion/hematoma.
Psych: Calm, cooperative
Lab
04/25/24 12/12/24
04:06 19:37
WBC 11.2 H
Hgb 11.2 L 12.0
BUN 40 H
Creatinine 1.0
eGFR 58.75
Glucose 100 H
Pending final report of Rt Hip XR
CT Pelvis W/o Iv Contrast
- Degenerative changes about the bony pelvis and included portions of the lower lumbar spine.
- No findings to suggest recent cortical fracture about the right hip.
- Asymmetric lateral right gluteal soft tissues limited in evaluation without intravenous contrast, most likely representing a moderate size gluteal hematoma.
Last hospitalist admission: Date of Admission: 04/23/24 - Date of Discharge: 04/25/24
Discharge Diagnosis/Procedures: Cardiac cath
CAD s/p PCI
RBBB
Mild acute on chronic HFpEF
Hypothyroidism
Essential HTN
#Essential tremor
Morbid obesity with BMI 41.9
Chronic mild anemia
Benign type calcifications in L breast
ASSESSMENT & PLAN
Pending Rx reconciliation
Traumatic pailful moderate size hematoma of R gluteal hematoma after a fall
Asso acute ambulatory dysfunction
NEG CT for cortical fracture about the right hip.
- stable VSS
- stable Hgb
- Hold Plavix
- c/w ASA
- PRN narcotic analgesia with anti emetics PRN
- Trend Hgb , if stable , to resume Plavix
- PT to evacuate
Chronic HFpEF HX
- Clinically not in acute HF
- c/w SUPERVISOR MELT HOUSE PO Frusemide and Lisinopril
Follow weights and electrolytes
HX CAD CAD s/p PCI and stent April 2024
- stable
- c/w ASA
- Holding Plavix due to hematoma and observe Hgb trend
- c/w IMN , Metoprolol XL
HLD
- c/w SUPER[employer] Rosuvastatin
Hypothyroidism
- c/w SUPERVISOR M[employer] LT4 88mcg daily
Essential HTN
- on Lisinopril, Metoprolol XL, Amlodipine
Essential tremor
- c/w SUPERVISOR M[employer] Primidone
Morbid obesity with BMI 41.9
DVT Px: SCD
Full code
OBS MS
[2024-12-12] MEDS: MAGNESIUM OXIDE 500 MG PO (23:17)
[2024-12-12] MEDS: MYSOLINE 200 MG PO (23:17)
[2024-12-13 00:20] VITALS: BP 158/68; BMI 41.0
[2024-12-13] MEDS: DILAUDID 0.5 MG IV ×3 (01:24→20:43)
[2024-12-13] MEDS: COMPAZINE 5 MG IV ×3 (01:37→20:44)
--- NOTE | 2024-12-13 02:34 | PTCARENOTE ---
Receive pt from ER. Pt alert oriented X3, calm, but reports pain in the right hip. Pt assist X1 to bed. Pt states that the pain is 9/10, the pain is sharp. AUDIT MANAGER (Gilberto Christianson) made aware about pt severe pain, ordered Dilaudid 0.5mg Q4. Dilaudid given as
per order. Shortly afterward, pt vomited around 200cc of green color fluid. AUDIT MANAGER made aware, ordered compazine. Compazine given. Pt felt relief and is currently loudly sleeping.
[2024-12-13 06:00] VITALS: BMI 41.0
[2024-12-13 06:34] LABS: Hematocrit 33.1 % (37.0-47.0); Hemoglobin 10.9 g/dL (12.0-16.0); Mean Corp Hgb Conc. 32.9 g/dL (33.0-37.0); Mean Corpuscular Hgb 30.6 pg (27.0-31.0); Mean Platelet Volume 10.9 fL (7.4-10.4); Platelet Count 247 10^3/uL (130-400); Red Blood Cell Count 3.56 10^6/uL (4.20-5.40); Red Cell Dist. Width 13.2 % (11.5-14.5); White Blood Cell Count 9.8 10^3/uL (4.8-10.8)
[2024-12-13 07:00] LABS: Magnesium 1.6 mg/dl (1.6-2.3)
[2024-12-13 07:55] VITALS: BP 131/70
[2024-12-13] MEDS: LASIX 20 MG PO (08:01)
[2024-12-13] MEDS: MYSOLINE 150 MG PO (08:01)
[2024-12-13] MEDS: IMDUR (EXTENDED RELEASE) 60 MG PO (08:01)
[2024-12-13] MEDS: NORVASC 7.5 MG PO (08:01)
[2024-12-13] MEDS: TRICOR 145 MG PO (08:02)
[2024-12-13] MEDS: TOPROL XL 25 MG PO (08:03)
[2024-12-13] MEDS: FLUSH (NSS) 1 FLUSH IV (08:03)
[2024-12-13 09:27] LABS: Iron 63 ug/dl (37-170)
[2024-12-13 09:36] LABS: Percent Saturation 19 % (20-50); Total Iron Binding Capacity 316 ug/dl (265-497)
[2024-12-13] MEDS: MAGNESIUM OXIDE 500 MG PO (10:02)
[2024-12-13] MEDS: LIDOCAINE 4% PATCH 1 PATCH TOPICAL (10:03)
[2024-12-13 10:27] LABS: Ferritin 67.9 ng/ml (11.1-264.0)
[2024-12-13 10:41] LABS: Vitamin B12 841 pg/ml (239-931)
--- NOTE | 2024-12-13 11:01 | CM ---
Alert awake oriented patient who lives with Christianity in a 2 story home with 4 steps and 14 steps to bed/bathroom.She is independent in driving and all ADLs.No adaptive devices.Del Angel letter given explained signed on chart.
Tod Mccauley VN hx No Snf hx
Pharmacy [facility]
PCP Dr Bourne
PLAN home no needs
--- NOTE | 2024-12-13 12:27 | W.PN.HOSP.TC ---
Addendum entered and electronically signed by Fidelia Trejo MD 12/16/24 17:31:
Carotid artery disease with history of CABG 2006- Should read a Coronary artery disease with CABG
Original Note:
Today's Communication/Plan
-
CBC in am
Hold antiplatelets
PT eval
Pain control
Assessment / Plan
Assessment / Plan
73-year-old female with right hip pain she lost balance and fell into the right buttock and hip and unable to bear weight
CT pelvis-degenerative changes in the bony pelvis. No findings to suggest cortical fracture of the right hip. Asymmetric lateral right gluteal soft tissue limited evaluation without IV contrast likely representing moderate-sized gluteal hematoma.
CVS: S1-S2 normal
Chest: CTA B/L
Abdomen: Soft, NT / Bowel sounds present
mild tenderness right gluteal area
# Traumatic right gluteal hematoma
Hold aspirin and Plavix
Follow hemoglobin
# Acute blood loss anemia secondary to gluteal hematoma on chronic anemia
# Leukocytosis-likely stress reaction
# Hypomagnesemia-replaced
# Chronic HFpEF
Continue Lasix, metoprolol, lisinopril
# Carotid artery disease with history of CABG 2006 and PCI on 03/02/2024-continue Imdur, metoprolol, lisinopril, amlodipine, not on SGLT2 inhibitors statin. Hold antiplatelets
Left heart cath April 2024 with stable anatomy no need for further revascularization.
# Hypertension-continue Amlodipine, lisinopril, metoprolol
# Hyperlipidemia-continue rosuvastatin, Repatha, fenofibrate
# Hypothyroidism-continue Synthroid 88 mcg
# Essential tremor-continue primidone
# Chronic right bundle branch block
# History of left breast cancer with radiation therapy and lumpectomy
# Morbid obesity with a BMI of 41
# Ex-smoker
# DVT prophylaxis-patient refusing SCDs. Aware about risks of DVT/ PE
# Full code
Discussed with nursing
Spoke to and updated.
Anticipated Discharge: Within 24 hours
Subjective/Interval History
-
Date of Service: December 13, 2024
Objective Data
-
Labs:
Laboratory Results
12/13/24
05:41
WBC 9.8
Hgb 10.9 L
Hct 33.1 L
Plt Count 247
Vital Signs:
Vital Signs
Temp Pulse Resp BP Pulse Ox
98.1 F 64 16 131/70 96
12/13/24 07:55 12/13/24 08:03 12/13/24 07:55 12/13/24 08:03 12/13/24 07:56
[2024-12-13] MEDS: TYLENOL 1000 MG PO ×2 (13:48→21:04)
[2024-12-13 14:48] VITALS: BP 139/62; BP 161/59
[2024-12-13 15:55] VITALS: BP 147/61
--- NOTE | 2024-12-13 16:24 | PTCARENOTE ---
Pt AAO x3, NIXON; OOB to BR with assist x1; encouraging pt to use walker with OOB activity. Pt c/o R hip pain- good effect from IV Dilaudid. VSS. On room air- pulse ox96%. Abd large, soft, adithya PO well. Voiding in BR without difficulty. Resting
in bed at present. Will continue to monitor.
[2024-12-13] MEDS: ZESTRIL 20 MG PO (17:51)
[2024-12-13] MEDS: SENOKOT-S 1 TABLET PO (20:39)
[2024-12-13] MEDS: CRESTOR 20 MG PO (21:04)
[2024-12-13] MEDS: MYSOLINE 200 MG PO (21:04)
[2024-12-13] MEDS: SYNTHROID 88 MCG PO (21:05)
[2024-12-13 23:40] VITALS: BP 121/37
[2024-12-14] MEDS: TYLENOL 1000 MG PO ×3 (05:28→21:00)
[2024-12-14] MEDS: DILAUDID 0.5 MG IV ×4 (05:38→21:05)
[2024-12-14] MEDS: COMPAZINE 5 MG IV ×3 (05:39→21:02)
[2024-12-14 06:00] VITALS: BMI 41.6
[2024-12-14 06:19] LABS: Hematocrit 33.9 % (37.0-47.0); Mean Corp Hgb Conc. 32.4 g/dL (33.0-37.0); Mean Corpuscular Hgb 30.4 pg (27.0-31.0); Mean Corpuscular Volume 93.6 fL (81.0-99.0); Mean Platelet Volume 10.7 fL (7.4-10.4); Platelet Count 235 10^3/uL (130-400); Red Blood Cell Count 3.62 10^6/uL (4.20-5.40); Red Cell Dist. Width 13.3 % (11.5-14.5); White Blood Cell Count 9.4 10^3/uL (4.8-10.8)
[2024-12-14 06:46] LABS: Blood Urea Nitrogen 65 mg/dl (7-17); Calcium 9.6 mg/dl (8.4-10.2); Carbon Dioxide 23 mmol/L (22-30); Chloride 103 mmol/L (98-107); Estimated Creatinine Clearance 35 ml/min; Glucose 99 mg/dl (70-99); Magnesium 1.9 mg/dl (1.6-2.3); Potassium 5.1 mmol/L (3.5-5.1); Sodium 139 mmol/L (135-145); eGFR 33.42
[2024-12-14 07:30] VITALS: BP 114/51
[2024-12-14] MEDS: SENOKOT-S 1 TABLET PO ×2 (09:04→21:00)
[2024-12-14] MEDS: TRICOR 145 MG PO (09:05)
[2024-12-14] MEDS: MYSOLINE 150 MG PO (09:05)
[2024-12-14] MEDS: IMDUR (EXTENDED RELEASE) 60 MG PO (09:05)
[2024-12-14] MEDS: NORVASC 7.5 MG PO (09:06)
[2024-12-14] MEDS: MAGNESIUM OXIDE 500 MG PO (09:06)
[2024-12-14] MEDS: TOPROL XL 25 MG PO (09:07)
[2024-12-14] MEDS: LIDOCAINE 4% PATCH 1 PATCH TOPICAL (09:08)
[2024-12-14] MEDS: LASIX PO (09:12)
--- NOTE | 2024-12-14 11:58 | W.PN.HOSP.TC ---
Addendum entered and electronically signed by Fidelia Trejo MD 12/16/24 17:31:
Carotid artery disease with history of CABG 2006- Should read a Coronary artery disease with CABG
Original Note:
Today's Communication/Plan
-
Hold Lasix and Lisinopril
Restart ASA
Hold Plavix
BMP in am
Assessment / Plan
Assessment / Plan
73-year-old female with right hip pain she lost balance and fell into the right buttock and hip and unable to bear weight
CT pelvis-degenerative changes in the bony pelvis. No findings to suggest cortical fracture of the right hip. Asymmetric lateral right gluteal soft tissue limited evaluation without IV contrast likely representing moderate-sized gluteal hematoma.
CVS: S1-S2 normal
Chest: CTA B/L
Abdomen: Soft, NT / Bowel sounds present
mild tenderness right gluteal area
# Traumatic right gluteal hematoma
Hold Plavix and restart ASA
Follow hemoglobin- Stable now
# Acute blood loss anemia secondary to gluteal hematoma on chronic anemia
# Leukocytosis-likely stress reaction. Resolved
# ANATOLIY- Hold Lasix and Lisinopril.
# Hypomagnesemia-replaced
# Chronic HFpEF
Continue metoprolol, Hold lasix and lisinopril
# Carotid artery disease with history of CABG 2006 and PCI on 03/02/2024-continue Imdur, metoprolol, amlodipine, not on SGLT2 inhibitors statin. Hold Plavix and Lisinopril
Left heart cath April 2024 with stable anatomy no need for further revascularization.
# Hypertension-continue Amlodipine, metoprolol. Hold Lisinopril
# Hyperlipidemia-continue Rosuvastatin, Repatha, Fenofibrate
# Hypothyroidism-continue Synthroid 88 mcg
# Essential tremor-continue primidone
# Chronic right bundle branch block
# History of left breast cancer with radiation therapy and lumpectomy
# Morbid obesity with a BMI of 41
# Ex-smoker
# DVT prophylaxis-patient refusing SCDs. Aware about risks of DVT/ PE
# Full code
Discussed with nursing
Spoke to and updated 12/13/24
I have reached out to Cards to see if we can hold Plavix for a week.
Anticipated Discharge: Within 24 hours
Subjective/Interval History
-
Date of Service: December 14, 2024
Objective Data
-
Labs:
Laboratory Results
12/14/24
05:30
WBC 9.4
Hgb 11.0 L
Hct 33.9 L
Plt Count 235
Sodium 139
Potassium 5.1
Chloride 103
Carbon Dioxide 23
BUN 65 H
Creatinine 1.6 H
Glucose 99
Calcium 9.6
Vital Signs:
Vital Signs
Temp Pulse Resp BP Pulse Ox
98.4 F 61 16 114/51 95
12/14/24 07:30 12/14/24 07:30 12/14/24 07:30 12/14/24 07:30 12/14/24 07:30
I&O
12/13/24 12/14/24 12/15/24
06:59 06:59 06:59
Intake Total 1440 / 1440
Balance 1440 / 1440
--- NOTE | 2024-12-14 13:47 | CON.CAR ---
Addendum entered and electronically signed by Weston Monaco DO 12/14/24 15:51:
I saw and examined the patient.
The Scientific Writer's note was reviewed and I agree with the note.
Comment:
General: No acute distress, AAOX3
Neck: Negative JVD
Heart: Regular, Negative S3 positive S1/S2, Negative S4, No murmur
Lungs: CTA b/l, negative wheezes/rales/rhonchi
Abd: Positive BS, NT/ND, neg rebound/rigidity/guarding
Ext: Negative cyanosis/clubbing/edema
Neuro: nonfocal
Plan:
Admitted w/ R gluteal hematoma, seen on CT of pelvis.
She is low risk to hold Plavix for one week then resume. Continue ASA. She knows not to stop ASA.
After resuming Plavix, ultimately may be stopping Plavix in March 2025 which will be one year from PCI.
She had been on DAPT in the past longer but had also been smoking she states at that time.
Stable cv status.
EKG done and stable.
Outpt follow up to be arranged.
Discussed with family at bedside.
please recall if needed.
Original Note:
Consultation
Consultation Request
Date/Time Consultation Requested: 12/14/2024
Date/Time Consultation Performed: 12/14/2024
Requesting Provider: Dr. Trejo
Performing Provider: Yue Meza PA-C for Dr. Monaco
Reason for Consultation: Hematoma on DAPT
Medical History
-
Chief Complaint: CP
History of Present Illness:
HPI: Laura is a 74 year old female with PMH of CAD s/p CABG in 2006 and PCI in 03/2024, HTN, HLD, breast cancer, hypothyroidism, and former tobacco abuse. Presented to ER for evaluation of R hip pain. She lost her balance and had a fall onto her R
hip a few hours prior to arrival and was unable to bear weight since. In ER, was found to have R gluteal hematoma with no acute fracture. Plavix was held and she has been working with PT/OT on balance. Pain improving. Given recent NSTEMI w/ PCI of
SVG 03/2024, cardiology asked to comment about duration of plavix hold. She feels well from a cardiac standpoint and denies any chest pain, palpitations dizziness, lightheadedness, or SOB. Does note some LE edema, but states this is likely because
she has been sitting with her legs down for much of her admission.
PMH:
CAD
s/p CABG with REYES to LAD, SVG to OM-1 (1st branch), SVG seq to OM-1 (2nd branch) and then OM-2 2006
s/p cath with patent REYES to LAD, SVG to OM-1 (1st branch) patent and then occluded after the side of vein to side of artery anastomosis, SVG seq to OM-1 (2nd branch) and OM-2 was patent at [facility] 10/06/10
NSTEMI s/p 4.0 mm Xience stenting of the ostial SVG-OM1-OM 1 daughter-OM 2 03/02/24
cRBBB
HTN
Hyperlipidemia
h/o breast cancer
Hypothyroidism
Former smoker
Past Medical History
Past Medical History: Other (in HPI)
Past Surgical History: Cardiac (ABG at [facility] 2006, s/p SVG-OM1-OM 1 daughter-OM 2 with placement of a 4.0 x 38 mm Xience stent 03/02/24), Cholecystectomy and Gynecological ( [facility])
Social History
Tobacco: Former Smoker (quit 2010)
Alcohol: None
Drug: None
Personal:
Living: With Family
Family History
Family History: CAD and Diabetes
Allergies / Home Medications
Allergy/AdvReac Type Severity Reaction Status Date / Time
latex [Latex] Allergy Hives Verified 12/12/24 18:55
metronidazole [From Flagyl] Allergy Rash Verified 12/12/24 18:55
propranolol [From Inderal LA] Allergy Unknown Verified 12/12/24 18:55
Sulfa (Sulfonamide Allergy Hives Verified 12/12/24 18:55
Antibiotics)
�Medication �Instructions �Recorded �Confirmed �Type
ascorbic acid (vitamin C) 500 mg 500 mg PO HS Supplement 03/02/24 04/23/24 History
tablet (Vitamin C)
aspirin 81 mg tablet,delayed 81 mg PO HS Blood Clot 03/02/24 12/12/24 History
release Prevention/Tx
cholecalciferol (vitamin D3) 25 12.5 mcg PO DAILY Supplement ##0 03/02/24 04/23/24 History
mcg (1,000 unit) tablet (Vitamin
D3)
clopidogrel 75 mg tablet 75 mg PO DAILY Blood Clot 03/02/24 12/12/24 History
Prevention/Tx
cyanocobalamin (vitamin B-12) 500 500 mcg PO HS Supplement 03/02/24 04/23/24 History
mcg tablet
evolocumab 140 mg/mL subcutaneous 140 mg SC Q2W High Cholesterol 03/02/24 12/12/24 History
pen injector (Repatha Elyick)
fenofibrate 160 mg tablet 160 mg PO DAILY High Cholesterol 03/02/24 12/12/24 History
levothyroxine 88 mcg tablet 88 mcg PO HS Thyroid 03/02/24 12/12/24 History
primidone 50 mg tablet 150 mg PO DAILY Neurological 03/02/24 04/23/24 History
Condition
primidone 50 mg tablet 200 mg PO HS Neurological Condition 03/02/24 12/12/24 History
rosuvastatin 20 mg tablet 20 mg PO HS High Cholesterol 03/02/24 12/12/24 History
zinc 50 mg tablet 50 mg PO HS Supplement 03/02/24 04/23/24 History
furosemide 20 mg tablet 20 mg PO DAILY Fluid 03/11/24 12/12/24 History
Retention/Swelling
lisinopril 20 mg tablet 20 mg PO QPM Blood Pressure 04/23/24 12/12/24 History
metoprolol succinate 25 mg 25 mg PO DAILY #30 tabs 04/25/24 12/12/24 Rx
tablet,extended release 24 hr
nitroglycerin 0.4 mg sublingual 0.4 mg sublingual [id number] PRN 04/25/24 Rx
tablet chest pain #30 tabs
amlodipine 5 mg tablet 7.5 mg PO DAILY 12/12/24 12/12/24 History
isosorbide mononitrate 30 mg 60 mg PO DAILY 12/12/24 12/12/24 History
tablet,extended release 24 hr
Review of Systems
-
History Source: Patient
All other systems: Negative unless noted
Physical Exam
Vital Signs
Temp Pulse Resp BP Pulse Ox
98.4 F 61 16 114/51 95
12/14/24 07:30 12/14/24 07:30 12/14/24 07:30 12/14/24 07:30 12/14/24 07:30
Lab Results
12/14/24 05:30
12/14/24 05:30
Physical Exam
General: Well Developed, Well Nourished and No Apparent Distress
HEENT: Normocephalic and Moist Mucous Membranes
Respiratory: Clear and Non Labored Respirations
Cardiac: S1/S2 and Regular Rhythm
Musculoskeletal: No Clubbing, No Cyanosis and Edema
Skin: Warm and Dry
Neuro: AO x 3 and Nonfocal/Grossly Intact
Psych: Calm
Impression / Plan
-
PCP: Dr. Bourne
Time Motion Analyst: Dr. Holliday
Impression:
Presented w/ R hip pain s/p fall
R gluteal hematoma
CAD
s/p CABG with REYES to LAD, SVG to OM-1 (1st branch), SVG seq to OM-1 (2nd branch) and then OM-2 2006
s/p cath with patent REYES to LAD, SVG to OM-1 (1st branch) patent and then occluded after the side of vein to side of artery anastomosis, SVG seq to OM-1 (2nd branch) and OM-2 was patent at [facility] 10/06/10
NSTEMI s/p 4.0 mm Xience stenting of the ostial SVG-OM1-OM 1 daughter-OM 2 03/02/24
cRBBB
HTN
Hyperlipidemia
h/o breast cancer
Hypothyroidism
Former smoker
PET stress test 02/25/24: Perfusion imaging reveals a small mild fixed apical defect consistent with prior infarction, small mild reversible anterolateral defect consistent with ischemia, EF 60% at rest and after administration of stress agent,
ventricle is normal in size
Echo 03/03/2024: EF 55-60%, no WMA, normal RV size and function
Plan:
-Presented after fall w/ R hip pain and inability to bear weight. Admitted w/ R gluteal hematoma, seen on CT of pelvis.
-Plavix on hold. Continue aspirin 81mg daily
-Given recent PCI to vein graft 03/2024, would hold plavix x 1 week only, then resume.
-Hgb stable at 11.0.
-Creat bumped to 1.6. lasix, lisinopril on hold. Resume as able.
-EKG reviewed, SR with RBBB, stable compared to prior. Continue Toprol, amlodipine, and Imdur.
-Continue cresto 20mg daily.
-Otherwise stable from a cardiac standpoint. Will arrange follow up.
HPI: Laura is a 74 year old female with PMH of CAD s/p CABG in 2006 and PCI in 03/2024, HTN, HLD, breast cancer, hypothyroidism, and former tobacco abuse. Presented to ER for evaluation of R hip pain. She lost her balance and had a fall onto her R
hip a few hours prior to arrival and was unable to bear weight since. In ER, was found to have R gluteal hematoma with no acute fracture. Plavix was held and she has been working with PT/OT on balance. Pain improving. Given recent NSTEMI w/ PCI of
SVG 03/2024, cardiology asked to comment about duration of plavix hold. She feels well from a cardiac standpoint and denies any chest pain, palpitations dizziness, lightheadedness, or SOB. Does note some LE edema, but states this is likely because
she has been sitting with her legs down for much of her admission.
Data Reviewed
-
EKG: Tracing Personally Visualized and interpreted
Radiology: Report Reviewed by me
CT Scan: Report Reviewed by me
Labs: Labs Reviewed by me
Old Records: Reviewed
[2024-12-14 15:25] VITALS: BP 141/56
--- NOTE | 2024-12-14 15:42 | CM ---
Pt was changed to In patient status.
IMM copy given reviewed . IMM signed on chart.
Offered VN at discharge. She declined.
She said [place]
PLAN Home no needs
[2024-12-14] MEDS: CRESTOR 20 MG PO (21:00)
[2024-12-14] MEDS: SYNTHROID 88 MCG PO (21:00)
[2024-12-14] MEDS: MYSOLINE 200 MG PO (21:00)
[2024-12-14] MEDS: ASPIR LOW (ENTERIC COATED) 81 MG PO (21:00)
[2024-12-14 23:13] VITALS: BP 118/62
[2024-12-15] MEDS: DILAUDID 0.5 MG IV ×4 (03:36→23:44)
[2024-12-15] MEDS: COMPAZINE 5 MG IV ×4 (03:36→23:43)
[2024-12-15] MEDS: TYLENOL 1000 MG PO ×3 (05:36→21:22)
[2024-12-15 06:00] VITALS: BMI 41.5
[2024-12-15 07:30] VITALS: BP 128/66
[2024-12-15 08:56] LABS: Blood Urea Nitrogen 67 mg/dl (7-17); Calcium 9.5 mg/dl (8.4-10.2); Carbon Dioxide 25 mmol/L (22-30); Chloride 103 mmol/L (98-107); Estimated Creatinine Clearance 38 ml/min; Glucose 94 mg/dl (70-99); Potassium 5.6 mmol/L (3.5-5.1); Sodium 139 mmol/L (135-145); eGFR 36.12
[2024-12-15] MEDS: NORVASC 7.5 MG PO (09:14)
[2024-12-15] MEDS: MAGNESIUM OXIDE 500 MG PO (09:15)
[2024-12-15] MEDS: IMDUR (EXTENDED RELEASE) 60 MG PO (09:16)
[2024-12-15] MEDS: TRICOR 145 MG PO (09:16)
[2024-12-15] MEDS: TOPROL XL PO (09:16)
[2024-12-15] MEDS: MYSOLINE 150 MG PO (09:16)
[2024-12-15] MEDS: LIDOCAINE 4% PATCH TOPICAL (09:27)
[2024-12-15] MEDS: SENOKOT-S PO (09:28)
--- NOTE | 2024-12-15 10:59 | W.PN.HOSP.TC ---
Addendum entered and electronically signed by Fidelia Trejo MD 12/16/24 17:31:
Carotid artery disease with history of CABG 2006- Should read a Coronary artery disease with CABG
Original Note:
Today's Communication/Plan
-
Low K diet
IVF
Follow creat
Lokelma
Assessment / Plan
Assessment / Plan
73-year-old female with right hip pain she lost balance and fell into the right buttock and hip and unable to bear weight
CT pelvis-degenerative changes in the bony pelvis. No findings to suggest cortical fracture of the right hip. Asymmetric lateral right gluteal soft tissue limited evaluation without IV contrast likely representing moderate-sized gluteal hematoma.
CVS: S1-S2 normal
Chest: CTA B/L
Abdomen: Soft, NT / Bowel sounds present
mild tenderness right gluteal area
# Traumatic right gluteal hematoma
Hold Plavix and restart ASA
Follow hemoglobin- Stable now
# Acute blood loss anemia secondary to gluteal hematoma on chronic anemia
# Leukocytosis-likely stress reaction. Resolved
# ANATOLIY- Hold Lasix and Lisinopril. IVF and treat hyperkalemia with Lokelma
# Hypomagnesemia-replaced
# Chronic HFpEF
Continue metoprolol, Hold lasix and lisinopril
# Carotid artery disease with history of CABG 2006 and PCI on 03/02/2024-continue Imdur, metoprolol, amlodipine, not on SGLT2 inhibitors statin. Hold Plavix and Lisinopril
Left heart cath April 2024 with stable anatomy no need for further revascularization.
# Hypertension-continue Amlodipine, metoprolol. Hold Lisinopril
# Hyperlipidemia-continue Rosuvastatin, Repatha, Fenofibrate
# Hypothyroidism-continue Synthroid 88 mcg
# Essential tremor-continue primidone
# Chronic right bundle branch block
# History of left breast cancer with radiation therapy and lumpectomy
# Morbid obesity with a BMI of 41
# Ex-smoker
# DVT prophylaxis-patient refusing SCDs. Aware about risks of DVT/ PE
# Full code
Discussed with nursing
I have reached out to [facility] to see if we can hold Plavix for a week. Awaiting reply.
Anticipated Discharge: Within 24 hours
Subjective/Interval History
-
Date of Service: December 15, 2024
Objective Data
-
Labs:
Laboratory Results
12/15/24 12/15/24
07:06 10:58
Hgb Pending
Hct Pending
Sodium 139
Potassium 5.6 H
Chloride 103
Carbon Dioxide 25
BUN 67 H
Creatinine 1.5 H
Glucose 94
Calcium 9.5
Vital Signs:
Vital Signs
Temp Pulse Resp BP Pulse Ox
98.2 F 59 18 128/66 97
12/15/24 07:30 12/15/24 09:14 12/15/24 07:30 12/15/24 09:14 12/15/24 07:30
I&O
12/14/24 12/15/24 12/16/24
06:59 06:59 06:59
Intake Total 1440 / 1440 1200 / 1200
Balance 1440 / 1440 1200 / 1200
[2024-12-15 11:35] LABS: Hematocrit 32.4 % (37.0-47.0); Hemoglobin 10.8 g/dL (12.0-16.0)
[2024-12-15] MEDS: LOKELMA 10 GRAM PO (11:55)
[2024-12-15] MEDS: NSS 1000 IV ×2 (11:55→21:43)
[2024-12-15 15:20] VITALS: BP 132/64
--- NOTE | 2024-12-15 16:55 | CM ---
Chart reviewed home with spouse no needs.
Plan; Home no needs.
[2024-12-15] MEDS: SYNTHROID 88 MCG PO (20:00)
[2024-12-15] MEDS: CRESTOR 20 MG PO (20:00)
[2024-12-15] MEDS: ASPIR LOW (ENTERIC COATED) 81 MG PO (20:00)
[2024-12-15] MEDS: MYSOLINE 200 MG PO (20:00)
[2024-12-15] MEDS: SENOKOT-S 1 TABLET PO (20:00)
[2024-12-15 23:36] VITALS: BP 136/58
[2024-12-16] MEDS: TYLENOL 1000 MG PO ×2 (05:53→13:14)
[2024-12-16 06:00] VITALS: BMI 41.9
[2024-12-16] MEDS: IMDUR (EXTENDED RELEASE) 60 MG PO (08:15)
[2024-12-16] MEDS: ROXICODONE 5 MG PO (08:15)
[2024-12-16] MEDS: MAGNESIUM OXIDE 500 MG PO (08:16)
[2024-12-16] MEDS: TOPROL XL 25 MG PO (08:16)
[2024-12-16] MEDS: TRICOR 145 MG PO (08:16)
[2024-12-16] MEDS: MYSOLINE 150 MG PO (08:16)
[2024-12-16] MEDS: NORVASC 7.5 MG PO (08:16)
[2024-12-16] MEDS: SENOKOT-S 1 TABLET PO (08:16)
[2024-12-16 08:19] VITALS: BP 148/69
[2024-12-16] MEDS: LIDOCAINE 4% PATCH TOPICAL (08:20)
[2024-12-16 10:09] LABS: Blood Urea Nitrogen 46 mg/dl (7-17); Calcium 9.6 mg/dl (8.4-10.2); Carbon Dioxide 25 mmol/L (22-30); Chloride 108 mmol/L (98-107); Estimated Creatinine Clearance 57 ml/min; Glucose 93 mg/dl (70-99); Potassium 5.4 mmol/L (3.5-5.1); Sodium 141 mmol/L (135-145); eGFR 58.75
[2024-12-16] MEDS: NSS IV (11:44)
[2024-12-16 13:12] VITALS: BP 166/76
[2024-12-16] MEDS: LASIX 20 MG PO (13:14)
[2024-12-16] MEDS: LOKELMA 10 GRAM PO (13:15)
--- NOTE | 2024-12-16 14:04 | W.PN.HOSP.TC ---
Addendum entered and electronically signed by Fidelia Trejo MD 12/16/24 17:30:
Carotid artery disease with history of CABG 2006- Should read a Coronary artery disease with CABG
Addendum entered and electronically signed by Fidelia Trejo MD 12/16/24 16:09:
Repeat potassium normal repeat labs as outpatient
More than 30 minutes spent in discharge including
Final examination of the patient
Summarizing hospital stay
Instructions for continuing care to all relevant caregivers
Preparation of discharge records, prescriptions, and referral forms
Total time spent (in minutes): 35 min
Discharge
Original Note:
Today's Communication/Plan
-
Lokelma and Lasix
Repeat potassium
If stable will discharge
Assessment / Plan
Assessment / Plan
73-year-old female with right hip pain she lost balance and fell into the right buttock and hip and unable to bear weight
CT pelvis-degenerative changes in the bony pelvis. No findings to suggest cortical fracture of the right hip. Asymmetric lateral right gluteal soft tissue limited evaluation without IV contrast likely representing moderate-sized gluteal hematoma.
CVS: S1-S2 normal
Chest: CTA B/L
Abdomen: Soft, NT / Bowel sounds present.
# Traumatic right gluteal hematoma.
Hold Plavix and continue ASA.
Follow hemoglobin- Stable now.
# Acute blood loss anemia secondary to gluteal hematoma on chronic anemia.
# Leukocytosis-likely stress reaction. Resolved.
# Acute kidney injury-Hold Lasix and Lisinopril.
# Hypomagnesemia-replaced.
# Chronic HFpEF
Continue metoprolol, Hold lisinopril and restart Lasix.
Cardiology evaluation appreciated
# Carotid artery disease with history of CABG 2006 and PCI on 03/02/2024-continue Imdur, metoprolol, amlodipine, not on SGLT2 inhibitors statin. Hold Plavix and Lisinopril
Left heart cath April 2024 with stable anatomy no need for further revascularization.
# Hypertension- Continue Amlodipine, Metoprolol. Hold Lisinopril.
# Hyperlipidemia-continue Rosuvastatin, Repatha, Fenofibrate.
# Hypothyroidism-continue Synthroid 88 mcg .
# Essential tremor-continue primidone.
# Chronic right bundle branch block .
# History of left breast cancer with radiation therapy and lumpectomy.
# Morbid obesity with a BMI of 41.
# Ex-smoker.
# DVT prophylaxis-patient refusing SCDs. Aware about risks of DVT/ PE.
# Full code.
Discussed with nursing
D/W Son at bed side
Anticipated Discharge: Today
Subjective/Interval History
-
Date of Service: December 16, 2024
Objective Data
-
Labs:
Laboratory Results
12/16/24 12/16/24
08:38 15:00
Sodium 141
Potassium 5.4 H Pending
Chloride 108 H
Carbon Dioxide 25
BUN 46 H
Creatinine 1.0
Glucose 93
Calcium 9.6
Vital Signs:
Vital Signs
Temp Pulse Resp BP Pulse Ox
97.8 F 69 18 166/66 97
12/16/24 08:19 12/16/24 13:14 12/16/24 08:19 12/16/24 13:14 12/16/24 08:19
I&O
12/15/24 12/16/24 12/17/24
06:59 06:59 06:59
Intake Total 1200 / 1200 960 / 960
Balance 1200 / 1200 960 / 960
--- NOTE | 2024-12-16 14:53 | CM ---
Spoke with pt in room .
She said she may be discharged today.
Offered VN at discharge. She declined need me at [place].
She siad her can drive her home.
PLAN Home no needs
[2024-12-16 15:37] VITALS: BP 169/71
[2024-12-16 15:48] LABS: Potassium 4.8 mmol/L (3.5-5.1)
--- NOTE | 2024-12-16 17:28 | W.DS.TRANS ---
Addendum entered and electronically signed by Fidelia Trejo MD 12/16/24 17:30:
Dictation- [id number]
Original Note:
DC Summary - Physician General Practice
-
Discharge Instructions:
Discharge Diagnosis/Procedures Right gluteal hematoma from fall
Acute kidney injury
Hyperkalemia
Hypomagnesemia
Chronic heart failure
Coronary artery disease
Hypertension
Hyperlipidemia
Hypothyroidism
Tremor
Diet 2 Gram Sodium,Restrict fluids to 64 oz
Activity As tolerated
Driving Restrictions As prior to admission
Blood Work cbc,bmp 1 week
Specialty Instructions Weigh Daily
Instructions:
Stand-Alone Forms:
Changes to Home Medications: Yes
Discharge Medications:
DC Medications w/original date entered in [employer]
ascorbic acid (vitamin C) 500 mg tablet (Vitamin C) 500 mg PO HS Supplement 03/02/24
aspirin 81 mg tablet,delayed release 81 mg PO HS Blood Clot Prevention/Tx 03/02/24
cholecalciferol (vitamin D3) 25 mcg (1,000 unit) tablet (Vitamin D3) 12.5 mcg PO DAILY Supplement ##0 03/02/24
clopidogrel 75 mg tablet 75 mg PO DAILY Blood Clot Prevention/Tx 03/02/24
cyanocobalamin (vitamin B-12) 500 mcg tablet 500 mcg PO HS Supplement 03/02/24
evolocumab 140 mg/mL subcutaneous pen injector (Repatha SureDomenicoick) 140 mg SC Q2W High Cholesterol 03/02/24
fenofibrate 160 mg tablet 160 mg PO DAILY High Cholesterol 03/02/24
levothyroxine 88 mcg tablet 88 mcg PO HS Thyroid 03/02/24
primidone 50 mg tablet 150 mg PO DAILY Neurological Condition 03/02/24
primidone 50 mg tablet 200 mg PO HS Neurological Condition 03/02/24
rosuvastatin 20 mg tablet 20 mg PO HS High Cholesterol 03/02/24
furosemide 20 mg tablet 20 mg PO DAILY Fluid Retention/Swelling 03/11/24
lisinopril 20 mg tablet 20 mg PO QPM Blood Pressure 04/23/24
nitroglycerin 0.4 mg sublingual tablet 0.4 mg sublingual [id number] PRN chest pain #30 tabs 04/25/24
amlodipine 5 mg tablet 7.5 mg PO DAILY Blood Pressure 12/12/24
isosorbide mononitrate 30 mg tablet,extended release 24 hr 60 mg PO DAILY Heart Disease/Condition 12/12/24
acetaminophen 500 mg tablet (Tylenol Extra Strength) 1,000 mg (2 x 500 mg) PO Q8H Pain #21 tabs 12/16/24
lidocaine 4 % topical patch 1 patch topical DAILY Pain #0 ea 12/16/24
magnesium oxide 500 mg PO DAILY Electrolyte Repletion #0 tabs 12/16/24
metoprolol succinate 25 mg tablet,extended release 24 hr 25 mg PO DAILY Blood pressure #30 tabs 12/16/24
oxycodone 5 mg tablet 5 mg PO Q4HPRN PRN moderate pain #16 tabs 12/16/24
polyethylene glycol 3350 17 gram oral powder packet 17 g PO DAILY Constipation #0 ea 12/16/24
sennosides 8.6 mg-docusate sodium 50 mg tablet 1 tab PO BID Constipation #60 tabs 12/16/24
Home Medication Changes
oxycodone 5 mg tablet 5 mg PO Q4HPRN PRN moderate pain #16 tabs 12/16/24
polyethylene glycol 3350 17 gram oral powder packet 17 g PO DAILY Constipation #0 ea 12/16/24
sennosides 8.6 mg-docusate sodium 50 mg tablet 1 tab PO BID Constipation #60 tabs 12/16/24
Pending Results: No
== END 2024-12-16 17:40 | disposition home or self-care (01) | DRG 605 ==
LOC: 4 EAST ACU 08:10
PROVIDERS: Physician Assistant; Registered Nurse; ADMITTING PHYSICIAN Internal Medicine; ATTENDING PHYSICIAN Hospitalist; CONSULT PHYSICIAN Nuclear Medicine Nuclear Cardiology; EMERGENCY PHYSICIAN Emergency Medicine; FAMILY PHYSICIAN Family Medicine
DX: S70.01XA Contusion of right hip, initial encounter (principal); N17.9 Acute kidney failure, unspecified; D62 Acute posthemorrhagic anemia; I50.32 Chronic diastolic (congestive) heart failure; Z68.41 Body mass index [BMI] 40.0-44.9, adult; F11.20 Opioid dependence, uncomplicated; W01.0XXA Fall on same level from slipping, tripping and stumbling without subsequent striking against object, initial encounter; E87.5 Hyperkalemia; E83.42 Hypomagnesemia; I11.0 Hypertensive heart disease with heart failure; I25.10 Atherosclerotic heart disease of native coronary artery without angina pectoris; E78.00 Pure hypercholesterolemia, unspecified; E03.9 Hypothyroidism, unspecified; G25.0 Essential tremor; Z95.1 Presence of aortocoronary bypass graft; D72.829 Elevated white blood cell count, unspecified; I45.10 Unspecified right bundle-branch block; Z85.3 Personal history of malignant neoplasm of breast; E66.01 Morbid (severe) obesity due to excess calories; Z87.891 Personal history of nicotine dependence; Z91.040 Latex allergy status; Z88.2 Allergy status to sulfonamides; Z79.82 Long term (current) use of aspirin; I25.2 Old myocardial infarction; Z79.890 Hormone replacement therapy; Z79.899 Other long term (current) drug therapy; E87.6 Hypokalemia; Z79.02 Long term (current) use of antithrombotics/antiplatelets; Z90.710 Acquired absence of both cervix and uterus; Z95.5 Presence of coronary angioplasty implant and graft; Z98.1 Arthrodesis status
CPT/HCPCS: 72192; 73502; 80048; 80053; 82607; 82728; 83540; 83550; 83735; 84132; 85014; 85018; 85027; 93005; 96374; 96376; 97116; 97162; 97530; 99285

== ENCOUNTER → 2025-03-24 10:24 | Outpatient (REF) | payer OTHER, SELFPAY | LOC: HWWDC 10:24 | PROVIDERS: ATTENDING PHYSICIAN Family Medicine; REFERRING PHYSICIAN Psychiatry & Neurology Neurology | DX: Z12.31 Encounter for screening mammogram for malignant neoplasm of breast (principal); M25.559 Pain in unspecified hip | CPT/HCPCS: 73502; 77063; 77067 ==

== ENCOUNTER 2025-07-01 19:03 | Emergency (ER) | payer OTHER, SELFPAY ==
[2025-07-01] VITALS (7 sets, daily range): BP systolic 137–180; BP diastolic 62–92
[2025-07-01 19:42] LABS: Hematocrit 38.6 % (37.0-47.0); Hemoglobin 12.3 g/dL (12.0-16.0); Mean Corp Hgb Conc. 31.9 g/dL (33.0-37.0); Mean Corpuscular Volume 97.7 fL (81.0-99.0); Nucleated Red Blood Cells % 0 %; Platelet Count 281 10^3/uL (130-400); Red Cell Dist. Width 13.3 % (11.5-14.5)
[2025-07-01 20:01] LABS: ALT (SGPT) 24 U/L (0-35); AST (SGOT) 25 U/L (14-36); Albumin 4.4 g/dl (3.5-5.0); Alkaline Phosphatase 60 U/L (38-126); Blood Urea Nitrogen 37 mg/dl (7-17); Calcium 9.6 mg/dl (8.4-10.2); Carbon Dioxide 28 mmol/L (22-30); Chloride 105 mmol/L (98-107); Glucose 110 mg/dl (70-99); Potassium 5.1 mmol/L (3.5-5.1); Sodium 140 mmol/L (135-145); Total Protein 7.2 g/dl (6.3-8.2); eGFR 47.21
[2025-07-01 20:16] LABS: Troponin I < 0.012 ng/ml
--- NOTE | 2025-07-01 20:29 | ED.GENMED ---
History of Present Illness
General
Chief Complaint: Chest Pain
Source: patient
Exam Limitations: none
Time Seen by Provider: 07/01/25 20:28
History of Present Illness
History of Present Illness:
74yoF with a history of coronary artery disease s/p PCI, hypertension, hyperlipidemia, obesity presenting for evaluation of chest pain. Symptoms began yesterday. She reports pressure that radiates throughout the chest. Her discomfort was
initially intermittent but it became constant today. She also reports heaviness in both of her arms which feels like she is trudging. She took nitroglycerin twice tonight which helped. She is nauseous but has not vomited. She denies any
paresthesias, shortness of breath, diaphoresis, dizziness, syncope. She has a history of 3 heart attacks in the past and this feels similar to the first one. Patient was seen by her PCP this evening and was told to go to the ED for evaluation.
She had a cardiac catheterization in April 2024 which showed stable coronary anatomy. She follows with Dr. Agarwal.
Past History
Past History
ED Past Medical History: CAD, Cancer (Breast cancer), HTN, Hypercholesterolemia and VT
ED Past Surgical History: Cardiac (CABG), Cholecystectomy, Orthopedic (Ankle) and Other (Left breast lumpectomy)
Social History
Tobacco: Former smoker
Alcohol: None
Personal:
Living: with family
Employment: Retired
Family History
Family History: CAD and Other
Phy Exam
General Physical Exam
General Presentation: well appearing and no apparent distress
General Skin: warm and dry
General Habitus: normal
General Mental: alert
ENT Exam
ENT Exam: normocephalic
Cardiovascular Exam
Cardiovascular Exam: regular rate/rhythm, no edema, no murmur and normal peripheral pulses (2+ radial and DP pulses bilaterally)
Pulmonary Exam
Pulmonary Exam: lungs clear, no respiratory distress, no rales, no crackles, no rhonchi and no wheezing
Neurological Exam
Neurological Exam: alert
[place] Coma Scale
Eye Opening: Spontaneous
Verbal Response: Oriented
Motor Response: Obeys Commands
GCS Total Score: 15
Skin Exam
Skin Exam: normal color and warm/dry
Psychiatric Exam
Psychiatric Exam: normal mood/affect
Scores
Heart Score for Chest Pain Patients
STEMI patient?: No
History: Moderately Suspicious
ECG: Nonspecific Repolarization
Age: >/= 65 years
Risk Factors: >/= 3 Risk Factors or History of CAD
Troponin: </= Normal Limit
Heart Score for Chest Pain Patients: 6
Heart Score Risk: 20.3% MACE over next 6 weeks
Course
Orders/Labs/Results
Orders:
Orders
07/01/25 19:10
Electrocardiogram (*1) Urgent
Reason for Study: Chest Pain
EKG- Treatment ONCE
07/01/25 19:27
Complete Blood Count/With Diff Urgent
Comprehensive Metabolic Panel Urgent
Troponin I Urgent
07/01/25 20:24
ECG [Electrocardiogram (*1)] Urgent
Reason for Study: Chest Pain
Other Reason for Exam: increased chest pain
07/01/25 20:25
EKG- Treatment ONCE
07/01/25 20:41
Cardiac Monitoring- Treatment ONCE
CR Chest - 2 Views Urgent
Comment:
Reason For Exam: CP
07/01/25 22:24
Troponin I Urgent
07/01/25 22:30
Electrocardiogram (*1) Urgent
Reason for Study: Chest Pain
Abnormal Lab Results
07/01/25
19:27
RBC 3.95 L 10^6/uL
(4.20-5.40)
MCH 31.1 H pg
(27.0-31.0)
MCHC 31.9 L g/dL
(33.0-37.0)
Abs Immat Gran (auto) 0.1 H 10^3/uL
(0-0.05)
Immature Gran % 0.6 H %
(0-0.5)
BUN 37 H mg/dl
(7-17)
Creatinine 1.2 H mg/dL
(0.6-1.0)
Glucose 110 H mg/dl
(70-99)
Total Bilirubin 0.1 L mg/dl
(0.2-1.3)
07/01/25 19:27
07/01/25 19:27
Vital Signs
Initial and Last Documented VS:
Initial Vital Signs
Temp Pulse Resp BP Pulse Ox
98.9 F 86 18 180/90 96
07/01/25 19:05 07/01/25 19:05 07/01/25 19:05 07/01/25 19:05 07/01/25 19:05
Last Documented Vital Signs
Temp Pulse Resp BP Pulse Ox
98.9 F 77 20 151/76 94
07/01/25 19:05 07/01/25 22:24 07/01/25 22:24 07/01/25 23:13 07/01/25 22:15
MDM/Problems Addressed
Differential Diagnosis Includes:
74yoF here with chest pressure x 1 day. Associated with bilateral arm heaviness and nausea. Hx of CAD. She is hypertensive with otherwise normal vital signs. She is nontoxic-appearing on exam. Differential diagnosis includes but is not limited
to: Angina, ACS, musculoskeletal, esophagitis
Initial ED plan: Workup initiated by nursing staff. EKG shows normal sinus rhythm with a right bundle branch block. EKG appears unchanged from prior. Troponin undetectable. Will check delta troponin/EKG and chest x-ray.
*Pulse Oximetry
SaO2: 93
Oxygen Mode of Delivery: Room air
Patient hypoxic: no
*EKG
Interpreted by ED Provider?: Yes
EKG Intrepretation Date: 07/01/25
Heart Rate: 83
Rate: normal
Rhythm: sinus
[place]: normal axis
QRS Pattern: right bundle branch block
Ischemia: no ischemia
*Critical Care Note
Total Time (30-74mins, 75-104mins- exclusive of procedures): Not Applicable
Update Note
Update Note:
Repeat troponin remains undetectable. Chest x-ray appears normal per my interpretation. On reassessment, patient reports persistent chest pressure and feels like she has to take another nitroglycerin. Given underlying CAD and active chest pain,
recommended hospitalization for continued monitoring and cardiology consult. Patient declines hospitalization at this time and is adamant that she wants to go home. Will have patient follow up with chest pain hotline. Stressed importance of
closely monitoring her symptoms at home and strict ED return precautions were reviewed. Patient discharged in stable condition with her .
ED Attending Note
-
Portions of this chart may have been created with voice recognition software.� Occasional wrong word or��sound alike� substitutions may have occurred due to the inherent limitations of voice recognition software.
Discharge Plan
Departure
Patient Disposition: Home (Routine Discharge)
Date of Disposition: 07/01/25
Time of Disposition: 23:17
Patient with high blood pressure during this ER visit?: Yes
Discharge Problem:
Chest pain
Instructions: Chest Pain DCA Follow Up
Prescriptions:
No Action
primidone 50 mg Tablet
150 mg PO DAILY
primidone 50 mg Tablet
200 mg PO HS
clopidogrel 75 mg Tablet
75 mg PO DAILY
aspirin 81 mg Tablet,Delayed Release (Dr/Ec)
81 mg PO HS
levothyroxine 88 mcg Tablet
88 mcg PO HS
cyanocobalamin (vitamin B-12) 500 mcg Tablet
500 mcg PO HS
ascorbic acid (vitamin C) [Vitamin C] 500 mg Tablet
500 mg PO HS
fenofibrate 160 mg tablet
160 mg PO DAILY
cholecalciferol (vitamin D3) [Vitamin D3] 25 mcg (1,000 unit) Tablet
12.5 mcg PO DAILY Qty: 0
Repatha SureClick 140 mg/mL Pen Injector
140 mg SC Q2W
rosuvastatin 20 mg Tablet
20 mg PO HS
furosemide 20 mg tablet
20 mg PO DAILY
lisinopril 20 mg tablet
20 mg PO QPM
nitroglycerin 0.4 mg Tablet, Sublingual
0.4 mg sublingual [id number] PRN (Reason: chest pain) Qty: 30 0RF
isosorbide mononitrate 30 mg tablet extended release 24 hr
60 mg PO DAILY
amlodipine 5 mg tablet
7.5 mg PO DAILY
lidocaine 4 % Adhesive Patch,Medicated
1 patch topical DAILY Qty: 0 0RF
magnesium oxide 500 mg magnesium Tablet
500 mg PO DAILY Qty: 0 0RF
polyethylene glycol 3350 17 gram Powder In Packet
17 g PO DAILY Qty: 0 0RF
sennosides-docusate sodium 8.6-50 mg Tablet
1 tab PO BID Qty: 60 0RF
oxycodone 5 mg Tablet
5 mg PO Q4HPRN PRN (Reason: moderate pain) Qty: 16 0RF
acetaminophen [Tylenol Extra Strength] 500 mg Tablet
1,000 mg PO Q8H Qty: 21 0RF
metoprolol succinate 25 mg Tablet Extended Release 24 Hr
25 mg PO DAILY Qty: 30 0RF
Referrals:
Annamaria Bourne MD [Family Provider, Family Practice]
Activity Restrictions/Additional Instructions:
The cardiology office will call you within 24 hours to schedule a follow-up appointment. Please call the office if you do not hear from them.
It is important that you closely monitor your symptoms at home and return to the ER immediately with any new or worsening symptoms.
Interventions
Interventions:
*Risk Screen - Suicide Last Done: 07/01/25 19:09
*General Assessment Last Done: 07/01/25 21:21
*Neglect/Abuse Screening Last Done: 07/01/25 19:09
*Nursing Disposition Last Done: 07/01/25 23:37
ED- Cardiac Assessment Last Done: 07/01/25 21:21
Discharge Date and Time
Discharge Date/Time: 07/01/25 23:39
Print Language: OCCITAN
--- NOTE | 2025-07-01 20:34 | EDRN ---
2- after 2nd ntg.
[2025-07-01 23:04] LABS: Troponin I < 0.012 ng/ml
== END 2025-07-01 23:39 | disposition home or self-care (01) ==
LOC: EMR 19:03
PROVIDERS: Emergency Medicine; Physician Assistant; EMERGENCY PHYSICIAN Emergency Medicine; FAMILY PHYSICIAN Family Medicine
DX: R07.9 Chest pain, unspecified (principal); I25.10 Atherosclerotic heart disease of native coronary artery without angina pectoris; I10 Essential (primary) hypertension; E78.00 Pure hypercholesterolemia, unspecified; I25.2 Old myocardial infarction; Z85.3 Personal history of malignant neoplasm of breast; Z87.891 Personal history of nicotine dependence; Z95.1 Presence of aortocoronary bypass graft; Z95.5 Presence of coronary angioplasty implant and graft
CPT/HCPCS: 99285; 71046; 80053; 84484; 85025; 93005